=== PATIENT | female | born 1980 | race Caucasian/White ===

== ENCOUNTER 2016-06-16 21:56 | Emergency (ER) | payer OTHER ==
[~2016-06-16] VITALS: Ht 170.2 cm; Wt 170.9 kg
[~2016-06-16 21:56] MED LIST: CIPR500T4 PO; CLIN-73 PO; HYDR-902 PO; HYDR-906 PO; IBUP-1542 PO; ONDA4TAB8 PO
[2016-06-16 22:01] VITALS: Ht 170.2 cm; Wt 170.9 kg
[2016-06-16] MEDS ORDERED: morphine 4 MG/ML VIAL IV STA (22:40)
[2016-06-16] MEDS ORDERED: ONDANSETRON 4 MG INJ IV STA (22:40)
--- NOTE | 2016-06-16 22:53 | ERD ---
ER Documentation Chief Complaint Date/Time DATE: 06/16/16 TIME: 22:48 Chief Complaint FLANK PAIN,BURNING WHEN URINATING, N/V, ABD PAIN X 3 DAYS HPI This patient is a 36-year-old female with history of type 2 diabetes, hypertension, high cholesterol, fibromyalgia, arthritis, presenting to the emergency department for 4 days of burning while urinating. Additionally she reports fevers up to 101.5F at home and left and right-sided flank pain, worse on the left. She rates the pain at a 9 out of 10 currently. She also reports 4 episodes of vomiting today with no blood. She has had no diarrhea or changes in stools. She denies any chest pain, shortness of breath, or other symptoms at this time. There are no other alleviating or exacerbating factors at this time. ROS All systems reviewed and are negative except as per history of present illness. Medications Home Meds Active Scripts Ciprofloxacin (Ciprofloxacin) 500 Mg/5 Ml [facility].rec, 500 MG PO BID, #14 TAB Prov:KAYLEIGH ROY PA-C 06/17/16 Hydrocodone/Acetaminophen ([place] 5-325 Tablet) 1 Each Tablet, 1 TAB PO Q6H Y for PAIN, #6 TAB Prov:KAYLEIGH ROY PA-C 06/17/16 Ondansetron (Ondansetron Odt) 4 Mg Tab.rapdis, 4 MG PO Q6H Y for NAUSEA AND/OR VOMITING, #10 TAB Prov:KAYLEIGH ROY PA-C 06/17/16 Hydrocodone/Acetaminophen ([place] 10-325 Tablet) 1 Each Tablet, 1 TAB PO Q6H Y for PAIN, #10 TAB Prov:GRAZYNA COREAS PA-C 05/18/16 Clindamycin Hcl* (Clindamycin Hcl*) 300 Mg Capsule, 300 MG PO TID for 10 Days, CAP Prov:GRAZYNA COREAS PA-C 05/18/16 Ondansetron Hcl* (Zofran*) 4 Mg Tablet, 4 MG PO Q6H for NAUSEA AND/OR VOMITING, #10 TAB Prov:BEV OWENS NP 05/06/16 Ibuprofen* (Ibuprofen*) 600 Mg Tablet, 600 MG PO Q6, #15 TAB Prov:BEV OWENS NP 05/06/16 Hydrocodone/Acetaminophen ([place] 5-325 Tablet) 1 Each Tablet, 1 TAB PO Q6H Y for PAIN, #7 TAB Prov:BEV OWENS GAS PROVER 05/06/16 Ciprofloxacin Hcl* (Ciprofloxacin Hcl*) 500 Mg Tablet, 500 MG PO BID for 7 Days , TAB Prov:BEV OWENS NP 05/06/16 Allergies Allergies: Coded Allergies: Sulfa (Sulfonamide Antibiotics) (Unverified Allergy, Unknown, HIVES,, 06/16) PMhx/Soc History of Surgery: Yes (Cholecystectomy, appendectomy, oophorectomy) Anesthesia Reaction: No Hx Neurological Disorder: No Hx Respiratory Disorders: No Hx Cardiac Disorders: No Hx Psychiatric Problems: No Hx Miscellaneous Medical Probl: No Hx Alcohol Use: No Hx Substance Use: No Hx Tobacco Use: No FmHx Noncontributory for chief complaint Physical Exam Vitals Vital Signs Date Time Temp Pulse Resp B/P Pulse Ox O2 Delivery O2 Flow Rate FiO2 06/16/16 22:01 99.3 93 22 138/67 96 Physical Exam INITIAL VITAL SIGNS: Reviewed by me. Obese body habitus GENERAL: The patient is well developed and appropriate for usual state of health in no apparent distress HEENT: Pupils equal, round, and reactive to light. EOMI. There is no scleral icterus. NECK: C-spine is soft and supple, there is no meningismus. There is no cervical lymphadenopathy. LUNGS: Clear to auscultation bilaterally. There are no rales, wheezes or rhonchi. HEART: Regular rate and rhythm, no murmurs, clicks, rubs or gallops. ABDOMEN: Morbidly obese abdomen, soft, nondistended, there is tenderness to palpation of the left upper and left lower quadrant. BACK: There is left-sided CVA tenderness. EXTREMITIES: There is no peripheral cyanosis or edema. No focal swelling or erythema. NEUROLOGICAL: The patient moves all four extremities with 5/5 strength. Cranial nerves II - XII are intact. Normal gait. Alert and oriented SKIN: There is no apparent rash or petechiae. HEME/LYMPHATIC: There is no evidence of excessive bruising or lymphedema. PSYCHIATRIC: The patient does not appear anxious or depressed. Result Diagram: 06/16/16 2727 06/16/16 2322 Results 24 hrs Laboratory Tests Test 06/16/16 23:07 06/16/16 23:22 Urine Bacteria MODERATE Urine Bilirubin NEGATIVE Urine Clarity SLIGHTLY CLOUDY Urine Color DK. BROWN Urine Glucose >=1000% Urine Hemoglobin 1+ Urine Ketones TRACE Urine Leukocyte Esterase TRACE Urine Microscopic RBC 2-5/HPF Urine Microscopic WBC 10-25/HPF Urine Nitrite NEGATIVE Urine Specific [place] >=1.030 Urine Squamous Epithelial Cells MODERATE Urine Total Protein 2+ Urine Urobilinogen 0.2 E.U./dL Urine Yeast FEW Urine pH 6.0 Alanine Aminotransferase (ALT/SGPT) 42IU/L Albumin 4.3g/dl Albumin/Globulin Ratio 1.16 Alkaline Phosphatase 137IU/L Anion Gap 17 Aspartate Amino Transf (AST/SGOT) 34IU/L Basophils # 0.010^3/ul Basophils % 0.4% Blood Urea Nitrogen 8mg/dl Calcium Level 9.5mg/dl Carbon Dioxide Level 31mmol/L Chloride Level 93mmol/L Creatinine 0.58mg/dl Direct Bilirubin 0.00mg/dl Eosinophils # 0.510^3/ul Eosinophils % 5.8% Globulin 3.70g/dl Glucose Level 284mg/dl Hematocrit 41.1% Hemoglobin 14.4g/dl Indirect Bilirubin 0.3mg/dl Lipase 547U/L Lymphocytes # 2.510^3/ul Lymphocytes % 27.6% Mean Corpuscular Hemoglobin 29.5pg Mean Corpuscular Hemoglobin Concent 35.0g/dl Mean Corpuscular Volume 84.1fl Mean Platelet Volume 9.5fl Monocytes # 0.310^3/ul Monocytes % 3.5% Neutrophils # 5.810^3/ul Neutrophils % 62.7% Nucleated Red Blood Cells # 0.010^3/ul Nucleated Red Blood Cells % 0.0/100WBC Platelet Count 94621^3/UL Potassium Level 3.3mmol/L Red Blood Count 4.8810^6/ul Red Cell Distribution Width 13.6% Sodium Level 138mmol/L Total Bilirubin 0.3mg/dl Total Protein 8.0g/dl White Blood Count 9.210^3/ul Current Medications Medications (Trade) Dose Ordered Sig/Jovon Route PRN Reason Start Time Stop Time Status Last Admin Dose Admin Morphine Sulfate (morphine) 4 mg ONCE STAT IV 06/16/16 22:40 06/16/16 22:43 DC 06/16/16 23:26 Ondansetron HCl (Zofran Inj) 4 mg ONCE STAT IV 06/16/16 22:40 06/16/16 22:43 DC 06/16/16 23:26 Morphine Sulfate 4 mg 4 mg ONCE STAT IV 06/17/16 00:12 06/17/16 00:13 DC 06/17/16 00:19 Ceftriaxone Sodium (Rocephin) 50 ml @ 100 mls/hr ONCE ONCE IVPB 06/17/16 01:00 06/17/16 01:29 06/17/16 00:56 Procedures/MDM ED course: Labs: Lab results reviewed. Lipase is elevated at 547. Urinalysis shows trace leukocytes and 2+ protein. All other labs show no significant acute abnormalities Medications: The patient was given IV Zofran and IV morphine for acute pain and nausea relief. Reevaluation: On reevaluation the patient was feeling improved. MDM: 36-year-old female presents to the emergency department with left-sided CVA tenderness, dysuria, and left upper and left lower quadrant abdominal pain. On physical examination the patient is acutely tender to the left upper quadrant on palpation. The patient does have left-sided CVA tenderness. Labs show lipase is elevated at 547 and urinalysis shows signs of urinary tract infection with trace leukocytes and 2+ protein. All other labs show no significant acute abnormalities. At this time given the patient's age and clinical findings I believe she is suitable for outpatient treatment with return to the department in 24 hours for re-evaluation. The patient is post cholecystectomy and appendectomy and although there are clinical signs of slight pancreatitis I do not believe that imaging is required at this time. I discussed this case with supervising physician Dr. Darden who agreed with my examination, assessment, and plan for the patient and states the patient is suitable for 24 hour follow-up to the emergency department. The patient understands her diagnosis and plan and her questions and concerns of been addressed. The patient will be treated as an outpatient for her urinary tract infection and she has been given antibiotics and antinausea medication. Departure Diagnosis: Primary Impression: Abdominal pain Additional Impression: Urinary tract infection Condition: Stable Patient Instructions: Abdominal Pain, Urinary Tract Infections in Women Additional Instructions: Return to the Emergency Department in 24 hours for re-evaluation of abdominal pain. Follow-up with your primary care physician within 1 week. Return to the emergency department immediately should you have any new or worsening symptoms, uncontrolled fevers, or other unexplained symptoms. Take all medications as directed. KAYLEIGH ROY PA-C Jun 16, 2016 22:52
[2016-06-16 23:21] LABS: ADD UMIC YES; URINE BILIRUBIN (Dip) NEGATIVE (NEGATIVE); URINE BLOOD (Dip) 1+ (NEGATIVE); URINE COLOR DK. BROWN (YELLOW); URINE GLUCOSE (Dip) >=1000 % (NEGATIVE); URINE KETONES (Dip) TRACE (NEGATIVE); URINE LEUKOCYTE ESTERASE (Dip) TRACE (NEGATIVE); URINE NITRITE (Dip) NEGATIVE (NEGATIVE); URINE TOTAL PROTEIN (Dip) 2+ (NEGATIVE); URINE UROBILINOGEN (Dip) 0.2 E.U./dL (0.1-1.0)
[2016-06-17 00:01] LABS: BACTERIA,URINE MODERATE; SQUAMOUS EPITHELIAL CELL,UR MODERATE
[2016-06-17 00:03] LABS: BASOPHILS % 0.4 % (0.0-2.0); EOSINOPHILS # 0.5 10^3/ul (0.0-0.5); EOSINOPHILS % 5.8 % (0.0-7.0); HEMATOCRIT 41.1 % (37.0-47.0); HEMOGLOBIN 14.4 g/dl (12.0-16.0); LYMPHOCYTES # 2.5 10^3/ul (0.8-2.9); LYMPHOCYTES % 27.6 % (15.0-51.0); MEAN CORPUSCULAR HEMOGLOBIN 29.5 pg (29.0-33.0); MEAN CORPUSCULAR VOLUME 84.1 fl (82.0-101.0); MEAN PLATELET VOLUME 9.5 fl (7.4-10.4); MONOCYTE # 0.3 10^3/ul (0.3-0.9); MONOCYTES % 3.5 % (0.0-11.0); NEUTROPHIL # 5.8 10^3/ul (1.6-7.5); NEUTROPHILS % 62.7 % (39.0-77.0); PLATELET COUNT 186 10^3/UL (140-440); RED BLOOD COUNT 4.88 10^6/ul (4.20-5.40); RED CELL DISTRIBUTION WIDTH 13.6 % (11.5-14.5); UNCORRECTED WBC 9.2 10^3/ul (4.8-10.8); WHITE BLOOD COUNT 9.2 10^3/ul (4.8-10.8)
[2016-06-17 00:04] LABS: CONDITION 1
[2016-06-17 00:12] LABS: ALBUMIN 4.3 g/dl (3.3-4.9); POTASSIUM 3.3 mmol/L (3.5-5.1)
[2016-06-17] MEDS ORDERED: morphine 4 MG/ML VIAL IV STA (00:12)
[2016-06-17 00:14] LABS: CREATININE 0.58 mg/dl (0.44-1.00)
[2016-06-17 00:15] LABS: ALBUMIN/GLOBULIN RATIO 1.16; BILIRUBIN,INDIRECT 0.3 mg/dl (0-1.1); BILIRUBIN,TOTAL 0.3 mg/dl (0.2-1.3); CALCIUM 9.5 mg/dl (8.4-10.2)
[2016-06-17] MEDS ORDERED: ONDA4TAB14 PO (00:36)
[2016-06-17] MEDS ORDERED: CIPR500S2 PO (00:37)
[2016-06-17] MEDS ORDERED: HYDR-906 PO (00:37)
[2016-06-17] MEDS ORDERED: CEFTRIAXONE 1 GM/50 ML (PMX) 50 ML IVPB ONE (01:00)
[2016-06-17 01:52] VITALS: BP 120/76; PULSE 94; RESP 17; TEMP 97.3
== END 2016-06-17 01:52 | disposition home or self-care (01) ==
LOC: FTE 21:56
DX: R10.31 Right lower quadrant pain (principal); N39.0 Urinary tract infection, site not specified; I10 Essential (primary) hypertension; E11.9 Type 2 diabetes mellitus without complications; R11.2 Nausea with vomiting, unspecified; E66.9 Obesity, unspecified; Z68.43 Body mass index [BMI] 50.0-59.9, adult
CPT/HCPCS: 36415; 80053; 81001; 83690; 85025; 96374; 96375; 96376; J0696; J2270; J2405; Z7502; 81003

== ENCOUNTER 2016-06-30 17:34 | Emergency (ER) | payer OTHER ==
[~2016-06-30] VITALS: Wt 120.0 kg
[~2016-06-30 17:34] MED LIST changes: +CIPR500S2 PO; +ONDA4TAB14 PO
[2016-06-30] MEDS ORDERED: ONDANSETRON 4 MG INJ IV STA (18:35)
[2016-06-30] MEDS ORDERED: KETOROLAC 30 MG INJ IV STA (18:35)
[2016-06-30] MEDS ORDERED: SOD CHLORIDE 0.9% 1,000 ML IV STA (18:35)
[2016-06-30] MEDS ORDERED: morphine 4 MG/ML VIAL IV STA (18:35)
[2016-06-30 19:42] LABS: ADD UMIC YES; URINE BILIRUBIN (Dip) NEGATIVE (NEGATIVE); URINE BLOOD (Dip) TRACE (NEGATIVE); URINE KETONES (Dip) TRACE (NEGATIVE); URINE LEUKOCYTE ESTERASE (Dip) TRACE (NEGATIVE); URINE NITRITE (Dip) NEGATIVE (NEGATIVE); URINE TOTAL PROTEIN (Dip) NEGATIVE (NEGATIVE); URINE UROBILINOGEN (Dip) 0.2 E.U./dL (0.1-1.0)
[2016-06-30 19:51] LABS: URINE COLOR YELLOW (YELLOW)
[2016-06-30 20:02] LABS: BACTERIA,URINE MODERATE; MUCUS,URINE MODERATE; SQUAMOUS EPITHELIAL CELL,UR MANY; URINE RBCS 0-2 /HPF (0)
--- NOTE | 2016-06-30 20:16 | RADRPT ---
PROCEDURE: CT abdomen and pelvis without IV contrast. CLINICAL INDICATION: Abdomen pain. TECHNIQUE: CT scan of the abdomen and pelvis was performed on a [address] scanner. The patient is scanned without IV contrast. Coronal and sagittal reformatted images were obtained from the axia l source images. Images were reviewed on a high-resolution PACS workstation. Total radiation dose: Total CTDIvol: 23.7 mGy. Total DLP: 1452 mGy-cm. COMPARISON: CT abdomen pelvis, 05/06/2016. FINDINGS: CT abdomen: The lung bases are clear. The heart is not enlarged without pericardial thickening or effusion. There is mild fatty liver. The liver is normal in size without focal mass or intrahepatic biliary d ilatation. The spleen is normal in size and homogeneous in density. The stomach is partially colla psed but is grossly unremarkable. The pancreas as visualized is normal. There is status post cholecystectomy and there is no evidence of biliary dilatation. The adrenal glands are symmetrical and normal. There is 3 mm nonobstructing stone in the lower pole owen of the left kidney, unchanged. The kidneys are symmetrically normal bilaterally. No renal o bstructive uropathy or mass lesion is seen.. The aorta is normal in caliber. There is no retroperitoneal lymphadenopathy. The sherry hepatis reg ion is clear. The bowel and mesentery, as visualized, are equally unremarkable. CT pelvis: There is postop change at the anterior abdomen wall. The small bowel loops situated within the pelv is are unremarkable. The female pelvic organs are normal. The pelvic sidewalls and inguinal region s are clear. No mass, lymphadenopathy is seen. No acute inflammation seen. The urinary bladder is normal. The surrounding osseous structures are unremarkable. No osteolytic or osteoblastic lesion is detect ed. IMPRESSION: 1. State post cholecystectomy. 2. Mild fatty liver. 3. Postop change at the anterior abdomen wall of the pelvis, unchanged. 4. 0.3 cm nonobstructing stone in the lower pole owen of the left kidney unchanged. RPTAT: GG .Manpreet Monroy MD, Date Time Electronically viewed and signed by .Manprete Monroy MD, on 06/30/2016 20:16 .Y/
--- NOTE | 2016-06-30 20:22 | ERD ---
ER Documentation Chief Complaint Date/Time DATE: 06/30/16 Chief Complaint Flank pain HPI The patient is a 36-year-old female with past medical history of diabetes mellitus, hypertension, hyperlipidemia, arthritis, fibromyalgia who presents to the Emergency Department with complaint of flank pain. The patient reports that four days ago she developed gradual-onset of sharp, intermittent right- sided flank pain. Yesterday, she began to experience minimal, though similar pain to the left flank as well. Since waking up this morning, she notes that her right flank pain has been constant, and aching in nature, which she currently rates as 8/10. The patient reports associated nausea, with one episode of nonbilious, nonbloody emesis today, and a few episodes of nonbloody, nonmucoid diarrhea over the past 2 days. She denies any black or bloody stools. Denies fevers, chills, myalgias. Denies dysuria, urinary frequency, urinary urgency, urinary hesitancy, hematuria. The patient does note that in the past she has experience both kidney stones and pyelonephritis. She denies any vaginal bleeding or new vaginal discharge. ROS All systems reviewed and are negative except as per history of present illness. Medications Home Meds Active Scripts Ibuprofen* (Motrin*) 600 Mg Tab, 600 MG PO Q6, #30 TAB Prov:HECTOR BRITO PA-C 06/30/16 Amoxicillin/Potassium Clav (Amox-Clav 875-125 mg Tablet) 875-125 mg Tab, 1 TAB PO BID for 10 Days, #20 TAB Prov:HECTOR BRITO PA-C 06/30/16 Hydrocodone/Acetaminophen ([place] 5-325 Tablet) 1 Each Tablet, 1 EACH PO Q6, #12 TAB Prov:HECTOR BRITO PA-C 06/30/16 Ciprofloxacin (Ciprofloxacin) 500 Mg/5 Ml [facility]..rec, 500 MG PO BID, #14 TAB Prov:KAYLEIGH ROY PA-C 06/17/16 Hydrocodone/Acetaminophen ([place] 5-325 Tablet) 1 Each Tablet, 1 TAB PO Q6H Y for PAIN, #6 TAB Prov:KAYLEIGH ROY PA-C 06/17/16 Ondansetron (Ondansetron Odt) 4 Mg Tab.rapdis, 4 MG PO Q6H Y for NAUSEA AND/OR VOMITING, #10 TAB Prov:KAYLEIGH ROY PA-C 06/17/16 Hydrocodone/Acetaminophen ([place] 10-325 Tablet) 1 Each Tablet, 1 TAB PO Q6H Y for PAIN, #10 TAB Prov:GRAZYNA COREAS PA-C 05/18/16 Clindamycin Hcl* (Clindamycin Hcl*) 300 Mg Capsule, 300 MG PO TID for 10 Days, CAP Prov:GRAZYNA COREAS PA-C 05/18/16 Ondansetron Hcl* (Zofran*) 4 Mg Tablet, 4 MG PO Q6H for NAUSEA AND/OR VOMITING, #10 TAB Prov:BEV OWENS NP 05/06/16 Ibuprofen* (Ibuprofen*) 600 Mg Tablet, 600 MG PO Q6, #15 TAB Prov:BEV OWENS NP 05/06/16 Hydrocodone/Acetaminophen ([place] 5-325 Tablet) 1 Each Tablet, 1 TAB PO Q6H Y for PAIN, #7 TAB Prov:BEV OWENS NP 05/06/16 Ciprofloxacin Hcl* (Ciprofloxacin Hcl*) 500 Mg Tablet, 500 MG PO BID for 7 Days , TAB Prov:BEV OWENS NP 05/06/16 Allergies Allergies: Coded Allergies: Sulfa (Sulfonamide Antibiotics) (Unverified Allergy, Unknown, HIVES,, 06/16) PMhx/Soc History of Surgery: Yes (Cholecystectomy, appendectomy, oophorectomy, HERNIA REPAIR) Anesthesia Reaction: No Hx Neurological Disorder: No (RHEUMOTOID ARTHRITIS, THYROID) Hx Respiratory Disorders: No Hx Cardiac Disorders: No (HTN, DM) Hx Psychiatric Problems: No Hx Miscellaneous Medical Probl: No (KIDNEY STONE, OBESE, FIBROMYALGIA) Hx Alcohol Use: No Hx Substance Use: No Hx Tobacco Use: No Physical Exam Vitals Vital Signs Date Time Temp Pulse Resp B/P Pulse Ox O2 Delivery O2 Flow Rate FiO2 06/30/16 22:32 97.3 69 20 142/85 96 Room Air 06/30/16 20:54 84 20 134/78 95 Room Air 06/30/16 17:37 99.2 76 18 186/86 99 Physical Exam GENERAL: Well-developed, well-nourished, in no acute distress. Nontoxic. HEENT: Head is normocephalic, atraumatic. No scleral pallor or icterus. Pupils equal, round and reactive to light. Conjunctiva pink. Moist mucous membranes. NECK: Supple. RESPIRATORY: Lungs are clear to auscultation bilaterally. No rales, rhonchi or wheezing. Equal breath sounds. Normal expiratory effort. CARDIOVASCULAR: Regular rate and rhythm. S1 and S2 normal. No murmurs, rubs, or gallops. GASTROINTESTINAL: Abdomen is soft, nontender, and nondistended. No guarding, no rebound tenderness. Normal bowel sounds. No abdominal bruits. No gross peritonitis. No masses or organomegaly. Lower midline abdominal incisional scar. FLANK: Right-sided CVA tenderness. No left CVA tenderness. No mass or swelling. EXTREMITIES: No clubbing, cyanosis, or edema. Normal skin perfusion. Moving all extremities. NEUROLOGIC: The patient is alert, awake, and oriented x 3. No focal neurologic deficits. Speech is normal. INTEGUMENT: No rashes. No vesicles. PSYCHIATRIC: Appropriate; Cooperative. Result Diagram: 06/30/16202406/30/162024 Results 24 hrs Laboratory Tests Test 06/30/16 19:30 06/30/16 20:25 Urine Bacteria MODERATE Urine Bilirubin NEGATIVE Urine Clarity CLOUDY Urine Color YELLOW Urine Glucose 0.5%% Urine Hemoglobin TRACE Urine Ketones TRACE Urine Leukocyte Esterase TRACE Urine Microscopic RBC 0-2/HPF Urine Microscopic WBC 25-50/HPF Urine Mucus MODERATE Urine Nitrite NEGATIVE Urine Specific [place] 1.020 Urine Squamous Epithelial Cells MANY Urine Total Protein NEGATIVE Urine Urobilinogen 0.2 E.U./dL Urine Yeast MODERATE Urine pH 6.5 Activated Partial Thromboplast Time 32.5Sec Alanine Aminotransferase (ALT/SGPT) 39IU/L Albumin 3.9g/dl Albumin/Globulin Ratio 1.11 Alkaline Phosphatase 89IU/L Anion Gap 16 Aspartate Amino Transf (AST/SGOT) 32IU/L Basophils # 0.010^3/ul Basophils % 0.4% Blood Urea Nitrogen 9mg/dl Calcium Level 9.2mg/dl Carbon Dioxide Level 31mmol/L Chloride Level 98mmol/L Creatinine 0.51mg/dl Direct Bilirubin 0.00mg/dl Eosinophils # 0.410^3/ul Eosinophils % 4.2% Globulin 3.50g/dl Glucose Level 193mg/dl Hematocrit 40.6% Hemoglobin 14.3g/dl INR International Normalized Ratio 1.09 Indirect Bilirubin 0.2mg/dl Lipase 97U/L Lymphocytes # 2.510^3/ul Lymphocytes % 27.4% Mean Corpuscular Hemoglobin 29.1pg Mean Corpuscular Hemoglobin Concent 35.2g/dl Mean Corpuscular Volume 82.6fl Mean Platelet Volume 9.4fl Monocytes # 0.310^3/ul Monocytes % 3.4% Neutrophils # 6.010^3/ul Neutrophils % 64.6% Nucleated Red Blood Cells # 0.010^3/ul Nucleated Red Blood Cells % 0.0/100WBC Platelet Count 58894^3/UL Potassium Level 3.4mmol/L Prothrombin Time 14.1Sec Prothrombin Time Ratio 1.1 Red Blood Count 4.9210^6/ul Red Cell Distribution Width 13.3% Sodium Level 142mmol/L Total Bilirubin 0.2mg/dl Total Protein 7.4g/dl White Blood Count 9.310^3/ul Current Medications Medications (Trade) Dose Ordered Sig/Jovon Route PRN Reason Start Time Stop Time Status Last Admin Dose Admin Sodium Chloride (NS) 1,000 ml @ 1,000 mls/hr Q1H STAT IV 06/30/16 18:35 06/30/16 19:34 DC 06/30/16 20:27 Morphine Sulfate (morphine) 4 mg ONCE STAT IV 06/30/16 18:35 06/30/16 18:37 DC 06/30/16 20:31 Ondansetron HCl (Zofran Inj) 4 mg ONCE STAT IV 06/30/16 18:35 06/30/16 18:37 DC 06/30/16 20:31 Ketorolac Tromethamine 30 mg 30 mg ONCE STAT IV 06/30/16 18:35 06/30/16 18:37 DC 06/30/16 20:30 Ceftriaxone Sodium (Rocephin) 50 ml @ 100 mls/hr ONCE ONCE IVPB 06/30/16 20:30 06/30/16 20:59 DC 06/30/16 20:32 Hydromorphone HCl (Dilaudid) 1 mg ONCE STAT IV 06/30/16 21:20 06/30/16 21:21 DC 06/30/16 21:47 Procedures/MDM DIAGNOSTIC TESTS AND INTERPRETATION: PROCEDURE: CT abdomen and pelvis without IV contrast. CLINICAL INDICATION: Abdomen pain. TECHNIQUE: CT scan of the abdomen and pelvis was performed on a [address] scanner. The patient is scanned without IV contrast. Coronal and sagittal reformatted images were obtained from the axial source images. Images were reviewed on a high-resolution PACS workstation. Total radiation dose: Total CTDIvol: 23.7 mGy. Total DLP: 1452 mGy-cm. COMPARISON: CT abdomen pelvis, 05/06/2016. FINDINGS: CT abdomen: The lung bases are clear. The heart is not enlarged without pericardial thickening or effusion. There is mild fatty liver. The liver is normal in size without focal mass or intrahepatic biliary dilatation. The spleen is normal in size and homogeneous in density. The stomach is partially collapsed but is grossly unremarkable. The pancreas as visualized is normal. There is status post cholecystectomy and there is no evidence of biliary dilatation. The adrenal glands are symmetrical and normal. There is 3 mm nonobstructing stone in the lower pole owen of the left kidney, unchanged. The kidneys are symmetrically normal bilaterally. No renal obstructive uropathy or mass lesion is seen.. The aorta is normal in caliber. There is no retroperitoneal lymphadenopathy. The sherry hepatis region is clear. The bowel and mesentery, as visualized, are equally unremarkable. CT pelvis: There is postop change at the anterior abdomen wall. The small bowel loops situated within the pelvis are unremarkable. The female pelvic organs are normal. The pelvic sidewalls and inguinal regions are clear. No mass, lymphadenopathy is seen. No acute inflammation seen. The urinary bladder is normal. The surrounding osseous structures are unremarkable. No osteolytic or osteoblastic lesion is detected. IMPRESSION: 1. State post cholecystectomy. 2. Mild fatty liver. 3. Postop change at the anterior abdomen wall of the pelvis, unchanged. 4. 0.3 cm nonobstructing stone in the lower pole owen of the left kidney unchanged. .Manpreet Monroy MD, MD Date Time Electronically viewed and signed by .Manpreet Monroy MD, on 06/30/2016 20:16 The patient's case was reviewed and discussed with Dr. Maldonado, who agrees with the plan of care including labs, treatment and advanced imaging as appropriate. He recommends that the patient be discharged home with a oral antibiotics ( Augmentin) as treatment of her pyelonephritis, and that she follow up with her primary medical provider as an outpatient. EMERGENCY DEPARTMENT COURSE: The patient was stable throughout the ED course. IV access established by nursing staff. NaCl, Toradol Morphine, and Zofran were administered. CT imaging performed. On reevaluation, the patient was resting, and reports a decrease in symptoms to 5/10, though no complete resolution. Urinalysis with findings concerning for infection, and therefore Rocephin 1 gram IV administered to patient. Dilaudid 1 gram IV administered for additional pain control. On repeat examination, the patient was resting comfortably, with significantly decreased pain. Patient is stable for discharge home with outpatient therapy and follow up. All results discussed with patient. MEDICAL DECISION MAKING: This is a 36-year-old female presenting to the Emergency Department with flak pain. On physical examination, the patient had right-sided CVA tenderness. Otherwise, she was nontoxic in appearance, with no evidence of dehydration. She was afebrile, with no tachycardia, no tachypnea, no hypotension. The differential diagnosis includes, but is not limited to, urinary tract infection, renal abscess, perinephric abscess, urethritis, nephrolithiasis, salpingitis, cervicitis, pelvic inflammatory disease, diverticulitis, cystitis, cholecystitis, appendicitis, abdominal aortic aneurysm /dissection, pyelonephritis. Laboratory analysis revealed no leukocytosis. No severe anemia requiring transfusion. Electrolytes are within normal limits, no indication for medical replacement. BUN/creatinine and creatinine are normal, no prerenal azotemia or acute kidney injury. No transaminitis. Urinalysis revealed trace urine leukocyte esterase with 25-50 white blood cells, consistent with a urinary infection. Given that the patient presented with recent flank pain and CVA tenderness, patient's symptoms are most consistent with acute pyelonephritis. She was given an injection of 1 g of Rocephin IV. Urine culture sent. After rest, and administration of medications and serial evaluations, the patient reports no new complaints. She continues to remain stable and nontoxic, with no signs of distress. At this time, the patient is in stable condition, and therefore can be discharged home with a prescription for Augmentin, ibuprofen and [place] and strict return precautions for signs of deteriorating or worsening condition. The patient is advised to follow up with her primary care provider within 1-2 days for reevaluation and further management, or return to the ER sooner for any new or worsening symptoms. I shared all laboratory results, medical decision making and plan with the patient at length and in great detail, and the patient verbally understands and agrees with the plan for further observation and care as an outpatient. At the time of discharge, all questions were answered. Departure Diagnosis: Primary Impression: Acute pyelonephritis Additional Impression: Flank pain Condition: Stable Patient Instructions: Pyelonephritis Additional Instructions: Call your primary care doctor TOMORROW for an appointment during the next 1-2 days for reevaluation and further management.See the doctor sooner or return here if your condition worsens before your appointment time. HECTOR BRITO PA-C Jun 30, 2016 20:22
[2016-06-30] MEDS ORDERED: CEFTRIAXONE 1 GM/50 ML (PMX) 50 ML IVPB ONE (20:30)
[2016-06-30 20:35] LABS: BASOPHILS % 0.4 % (0.0-2.0); EOSINOPHILS # 0.4 10^3/ul (0.0-0.5); EOSINOPHILS % 4.2 % (0.0-7.0); HEMATOCRIT 40.6 % (37.0-47.0); HEMOGLOBIN 14.3 g/dl (12.0-16.0); LYMPHOCYTES # 2.5 10^3/ul (0.8-2.9); LYMPHOCYTES % 27.4 % (15.0-51.0); MEAN CORPUSCULAR HEMOGLOBIN 29.1 pg (29.0-33.0); MEAN CORPUSCULAR HGB CONC 35.2 g/dl (32.0-37.0); MEAN CORPUSCULAR VOLUME 82.6 fl (82.0-101.0); MEAN PLATELET VOLUME 9.4 fl (7.4-10.4); MONOCYTE # 0.3 10^3/ul (0.3-0.9); MONOCYTES % 3.4 % (0.0-11.0); NEUTROPHILS % 64.6 % (39.0-77.0); PLATELET COUNT 171 10^3/UL (140-440); RED BLOOD COUNT 4.92 10^6/ul (4.20-5.40); RED CELL DISTRIBUTION WIDTH 13.3 % (11.5-14.5); UNCORRECTED WBC 9.3 10^3/ul (4.8-10.8); WHITE BLOOD COUNT 9.3 10^3/ul (4.8-10.8)
[2016-06-30 20:38] LABS: CONDITION 1
[2016-06-30 20:41] LABS: ALBUMIN 3.9 g/dl (3.3-4.9); POTASSIUM 3.4 mmol/L (3.5-5.1)
[2016-06-30 20:43] LABS: BILIRUBIN,INDIRECT 0.2 mg/dl (0-1.1); BILIRUBIN,TOTAL 0.2 mg/dl (0.2-1.3); CREATININE 0.51 mg/dl (0.44-1.00); INR 1.09; PARTIAL THROMBOPLASTIN TIME 32.5 Sec (25.0-35.0); PROTIME 14.1 Sec (12.2-14.2); PT RATIO 1.1
[2016-06-30 20:44] LABS: ALBUMIN/GLOBULIN RATIO 1.11; CALCIUM 9.2 mg/dl (8.4-10.2); TOTAL PROTEIN 7.4 g/dl (6.1-8.1)
[2016-06-30] MEDS ORDERED: HYDR-906 PO (21:17)
[2016-06-30] MEDS ORDERED: AMOX1TAB10 PO (21:17)
[2016-06-30] MEDS ORDERED: IBUP-1542 PO (21:18)
[2016-06-30] MEDS ORDERED: HYDROmorphONE 1 MG/ML SYG IV STA (21:20)
[2016-06-30 22:32] VITALS: BP 142/85; PULSE 69; RESP 20; TEMP 97.3
== END 2016-06-30 22:35 | disposition home or self-care (01) ==
LOC: FTE 17:34
DX: N10 Acute pyelonephritis (principal); I10 Essential (primary) hypertension; E11.9 Type 2 diabetes mellitus without complications; R11.2 Nausea with vomiting, unspecified; E66.9 Obesity, unspecified
CPT/HCPCS: 36415; 74176; 80053; 81001; 83690; 85025; 85610; 85730; 87086; 96374; 96375; J0696; J1170; J1885; J2270; J2405; J7030; Z7502; 81003

== ENCOUNTER 2016-08-15 20:26 | Emergency (ER) | payer OTHER ==
[~2016-08-15] VITALS: Ht 172.7 cm; Wt 170.9 kg
[~2016-08-15 20:26] MED LIST changes: +AMOX1TAB10 PO
[2016-08-15 20:35] VITALS: Ht 172.7 cm; Wt 170.9 kg
[2016-08-16] MEDS ORDERED: morphine 4 MG/ML VIAL IV STA (00:05)
[2016-08-16] MEDS ORDERED: SOD CHLORIDE 0.9% 1,000 ML IV STA (00:05)
[2016-08-16] MEDS ORDERED: ONDANSETRON 4 MG INJ IV STA (00:05)
[2016-08-16] MEDS ORDERED: LANT3I SC (00:40)
[2016-08-16] MEDS ORDERED: CLON-379 PO (00:40)
[2016-08-16] MEDS ORDERED: MTF1000T PO (00:40)
--- NOTE | 2016-08-16 00:40 | ERD ---
ER Documentation Chief Complaint Date/Time DATE: 08/16/16 TIME: 00:38 Chief Complaint pelvic pain x 4 days HPI 36-year-old female presents here in emergency department for complaints of pelvic, back pain for 4 days. Patient's complaining of pain as cramping pain, 6/ 10 scale, back pain worse upon movement, also having dysuria. Patient denies hematuria. Patient denies any fever or chills. Patient denies constipation or diarrhea. Patient's complaining of nausea but denies any vomiting. ROS All systems reviewed and are negative except as per history of present illness. Medications Home Meds Active Scripts Ibuprofen* (Motrin*) 600 Mg Tab, 600 MG PO Q6, #30 TAB Prov:HECTOR BRITO PA-C 06/30/16 Amoxicillin/Potassium Clav (Amox-Clav 875-125 mg Tablet) 875-125 mg Tab, 1 TAB PO BID for 10 Days, #20 TAB Prov:HECTOR BRITO PA-C 06/30/16 Hydrocodone/Acetaminophen ([place] 5-325 Tablet) 1 Each Tablet, 1 EACH PO Q6, #12 TAB Prov:HECTOR BRITO PA-C 06/30/16 Ciprofloxacin (Ciprofloxacin) 500 Mg/5 Ml Binta.mc.rec, 500 MG PO BID, #14 TAB Prov:KAYLEIGH ROY PA-C 06/17/16 Hydrocodone/Acetaminophen ([place] 5-325 Tablet) 1 Each Tablet, 1 TAB PO Q6H Y for PAIN, #6 TAB Prov:KAYLEIGH ROY PA-C 06/17/16 Ondansetron (Ondansetron Odt) 4 Mg Tab.rapdis, 4 MG PO Q6H Y for NAUSEA AND/OR VOMITING, #10 TAB Prov:KAYLEIGH ROY PA-C 06/17/16 Hydrocodone/Acetaminophen ([place] 10-325 Tablet) 1 Each Tablet, 1 TAB PO Q6H Y for PAIN, #10 TAB Prov:GRAZYNA COREAS PA-C 05/18/16 Clindamycin Hcl* (Clindamycin Hcl*) 300 Mg Capsule, 300 MG PO TID for 10 Days, CAP Prov:GRAZYNA COREAS PA-C 05/18/16 Ondansetron Hcl* (Zofran*) 4 Mg Tablet, 4 MG PO Q6H for NAUSEA AND/OR VOMITING, #10 TAB Prov:BEV OWENS NP 05/06/16 Ibuprofen* (Ibuprofen*) 600 Mg Tablet, 600 MG PO Q6, #15 TAB Prov:BEV OWENS NP 05/06/16 Hydrocodone/Acetaminophen ([place] 5-325 Tablet) 1 Each Tablet, 1 TAB PO Q6H Y for PAIN, #7 TAB Prov:BEV OWENS YARD JOCKEY 05/06/16 Ciprofloxacin Hcl* (Ciprofloxacin Hcl*) 500 Mg Tablet, 500 MG PO BID for 7 Days , TAB Prov:BEV OWENS NP 05/06/16 Reported Medications Clonidine Hcl* (Clonidine Hcl*) Unknown Strength Tab, PO Q6, #10 TAB 08/16/16 Insulin Glargine* (Lantus*) Unknown Strength Soln, SC BID, #1 VIAL 08/16/16 Metformin* (Glucophage*) Unknown Strength Tablet, PO BID, #20 TAB 08/16/16 Allergies Allergies: Coded Allergies: Sulfa (Sulfonamide Antibiotics) (Unverified Allergy, Unknown, HIVES,, 06/16) PMhx/Soc History of Surgery: Yes (Cholecystectomy, appendectomy, oophorectomy, HERNIA REPAIR) Anesthesia Reaction: No Hx Neurological Disorder: No (RHEUMOTOID ARTHRITIS, THYROID) Hx Respiratory Disorders: No Hx Cardiac Disorders: No (HTN, DM) Hx Psychiatric Problems: No Hx Miscellaneous Medical Probl: Yes (diabetes hypertension fibromyalgia kidney stone) Hx Alcohol Use: No Hx Substance Use: No Hx Tobacco Use: No Smoking Status: Never smoker FmHx Family History: No coronary disease, No diabetes, No other Physical Exam Vitals Vital Signs Date Time Temp Pulse Resp B/P Pulse Ox O2 Delivery O2 Flow Rate FiO2 08/15/16 20:35 97.8 81 20 126/62 98 Physical Exam GENERAL: The patient is well developed and appropriate for usual state of health, in no apparent distress. Morbidly obese. CHEST: Clear to auscultation bilaterally. There are no rales, wheezes or rhonchi. HEART: Regular rate and rhythm. No murmurs, clicks, rubs or gallops. No S3 or S4. ABDOMEN: Soft, nontender and nondistended. Good bowel sounds. No rebound or guarding. No gross peritonitis. No gross organomegaly or masses. No Pham sign or McBurney point tenderness. BACK: No midline or flank tenderness. EXTREMITIES: Equal pulses bilaterally. There is no peripheral clubbing, cyanosis or edema. No focal swelling or erythema. Full range of motion. Grossly neurovascularly intact. NEURO: Alert and oriented. Cranial nerves 2-12 intact. Motor strength in all 4 extremities with 5/5 strength. Sensation grossly intact. Normal speech and gait. SKIN: There is no apparent rash or petechia. The skin is warm and dry. HEMATOLOGIC AND LYMPHATIC: There is no evidence of excessive bruising or lymphedema. No gross cervical, axillary, or inguinal lymphadenopathy. Result Diagram: 08/16/16 0045 08/16/16 0045 Results 24 hrs Laboratory Tests Test 08/16/16 00:45 Alanine Aminotransferase (ALT/SGPT) 33IU/L Albumin 4.0g/dl Albumin/Globulin Ratio 1.33 Alkaline Phosphatase 90IU/L Anion Gap 15 Aspartate Amino Transf (AST/SGOT) 33IU/L Basophils # 0.010^3/ul Basophils % 0.5% Blood Urea Nitrogen 9mg/dl Calcium Level 8.8mg/dl Carbon Dioxide Level 31mmol/L Chloride Level 97mmol/L Creatinine 0.54mg/dl Direct Bilirubin 0.00mg/dl Eosinophils # 0.310^3/ul Eosinophils % 4.0% Globulin 3.00g/dl Glucose Level 236mg/dl Hematocrit 38.5% Hemoglobin 13.6g/dl Indirect Bilirubin 0.2mg/dl Lipase 53U/L Lymphocytes # 2.310^3/ul Lymphocytes % 27.1% Mean Corpuscular Hemoglobin 28.8pg Mean Corpuscular Hemoglobin Concent 35.3g/dl Mean Corpuscular Volume 81.6fl Mean Platelet Volume 10.8fl Monocytes # 0.410^3/ul Monocytes % 4.2% Neutrophils # 5.310^3/ul Neutrophils % 63.8% Nucleated Red Blood Cells # 0.010^3/ul Nucleated Red Blood Cells % 0.0/100WBC Platelet Count 26901^3/UL Potassium Level 3.2mmol/L Red Blood Count 4.7210^6/ul Red Cell Distribution Width 12.7% Sodium Level 140mmol/L Total Bilirubin 0.2mg/dl Total Protein 7.0g/dl Urine Bilirubin NEGATIVE Urine Clarity CLEAR Urine Color YELLOW Urine Glucose 0.1%% Urine Hemoglobin 3+ Urine Ketones TRACE Urine Leukocyte Esterase 1+ Urine Microscopic RBC 10-25/HPF Urine Microscopic WBC 10-25/HPF Urine Mucus FEW Urine Nitrite NEGATIVE Urine Specific [place] 1.025 Urine Squamous Epithelial Cells MANY Urine Total Protein TRACE Urine Urobilinogen 0.2 E.U./dL Urine Yeast MODERATE Urine pH 6.0 White Blood Count 8.310^3/ul Current Medications Medications (Trade) Dose Ordered Sig/Jovon Route PRN Reason Start Time Stop Time Status Last Admin Dose Admin Sodium Chloride (NS) 1,000 ml @ 1,000 mls/hr Q1H STAT IV 08/16/16 00:05 08/16/16 01:04 DC 08/16/16 00:45 Morphine Sulfate (morphine) 4 mg ONCE STAT IV 08/16/16 00:05 08/16/16 00:09 DC 08/16/16 00:45 Ondansetron HCl 4 mg 4 mg ONCE STAT IV 08/16/16 00:05 08/16/16 00:09 DC 08/16/16 00:45 Ceftriaxone Sodium (Rocephin) 50 ml @ 100 mls/hr ONCE ONCE IVPB 08/16/16 02:00 08/16/16 02:29 Patient was given medication for pain here in emergency department, after treatment, patient verbalized feeling much better. Patient's pain is improved.Patient was given Zofran here in the emergency department. After treatment, patient was able to tolerate po fluids here in the emergency department without any vomiting. There is no signs and symptoms of dehydration. Normal saline IV bolus was given here in emergency department for rehydration, patient tolerated IV fluids. IV Rocephin was given here in emergency department for treatment for pyelonephritis. PROCEDURE: CT abdomen and pelvis without intravenous contrast. CLINICAL INDICATION: Pain. TECHNIQUE: CT of the abdomen/pelvis was performed utilizing axial images with reconstructions in sagittal and coronal planes. The administered radiation dose is CTDI 24 mGy, DLP 1518 mGy-cm. COMPARISON: No pertinent prior examinations were submitted for comparison. FINDINGS: Visualized Chest: The visualized lung bases are clear. Abdomen: The pancreas, and adrenal glands are unremarkable. The liver is diffusely decreased in attenuation, compatible with hepatic steatosis. There is moderate cardiomegaly. Prior cholecystectomy is noted. The kidneys are without hydronephrosis. There is a small nonobstructive calculus within the interpolar left kidney. Previous ventral abdominal incision is noted, likely hernia repair. Small to moderate residual or recurrent ventral abdominal hernia is noted within the lower anterior abdominal wall, containing fat and some trace fluid. There is no evidence of bowel obstruction. The appendix is not seen. There is no evidence of acute appendicitis. No intra-abdominal free air is seen. Numerous diverticula are noted along the sigmoid colon without evidence of diverticulitis. There is no evidence of intra-abdominal adenopathy or free fluid. Pelvis: There is no evidence of pelvic adenopathy. The uterus and ovaries are without enlargement. The urinary bladder is unremarkable. There is no pelvic free fluid. Osseous structures: Unremarkable. IMPRESSION: Hepatic steatosis. Colonic diverticulosis. Left nephrolithiasis. Status post ventral abdominal incision, likely a hernia repair with small to moderate residual or recurrent hernia containing fat and a small amount of nonspecific fluid. RPTAT: HIKT .Stanley Day MD, MD Date Time Electronically viewed and signed by .Stanley Day MD, MD on 08/16/2016 01:18 .T/ CC: INGA FERRO YARD JOCKEY Procedures/MDM Medical Decision Making: Patient's symptoms most likely consistent with pyelonephritis. Outpatient management is appropriate at this time since patient is not septic, appears well and is hemodynamically stable. Patient has nephrolithiasis but is no symptoms of any septic stone, no obstructed stone.. There is low suspicion for abdominal emergencies at this time. Patients abdominal exam is normal at this time. Patients radiology exam does not show any abdominal emergencies at this time. There is low suspicion for appendicitis , cholecystitis, abdominal aortic aneurysms or peritonitis at this time. There is low suspicion for sepsis. Patient appears well and is hemodynamically stable. Disposition: Home. Condition: Stable Prescription ciprofloxacin, Pyridium, [place], ibuprofen Instructions: Patient is advised to take medications as prescribed. Patient is advised to rest, increase fluid intake and do good perineal hygiene. Patient is advised that if symptoms are worse, severe abdominal pain, uncontrolled vomiting , high fever, severe flank pain, worst signs and symptoms, to return to the emergency department immediately. Otherwise, patient can follow up with primary care doctor in 5-7 days. Departure Diagnosis: Primary Impression: Pyelonephritis Condition: Stable Patient Instructions: Pyelonephritis, Female (Adult) Additional Instructions: Patient is advised to take medications as prescribed. Patient is advised to rest, increase fluid intake and do good perineal hygiene. Patient is advised that if symptoms are worse, severe abdominal pain, uncontrolled vomiting, high fever, severe flank pain, worst signs and symptoms, to return to the emergency department immediately. Otherwise, patient can follow up with primary care doctor in 5-7 days. INGA FERRO NP Aug 16, 2016 00:40
[2016-08-16 01:00] LABS: ADD SCAN DIFF NO
[2016-08-16 01:09] LABS: BASOPHILS % 0.5 % (0.0-2.0); EOSINOPHILS # 0.3 10^3/ul (0.0-0.5); HEMATOCRIT 38.5 % (37.0-47.0); HEMOGLOBIN 13.6 g/dl (12.0-16.0); LYMPHOCYTES # 2.3 10^3/ul (0.8-2.9); LYMPHOCYTES % 27.1 % (15.0-51.0); MEAN CORPUSCULAR HEMOGLOBIN 28.8 pg (29.0-33.0); MEAN CORPUSCULAR HGB CONC 35.3 g/dl (32.0-37.0); MEAN CORPUSCULAR VOLUME 81.6 fl (82.0-101.0); MEAN PLATELET VOLUME 10.8 fl (7.4-10.4); MONOCYTE # 0.4 10^3/ul (0.3-0.9); MONOCYTES % 4.2 % (0.0-11.0); NEUTROPHIL # 5.3 10^3/ul (1.6-7.5); NEUTROPHILS % 63.8 % (39.0-77.0); PLATELET COUNT 162 10^3/UL (140-415); RED BLOOD COUNT 4.72 10^6/ul (4.20-5.40); RED CELL DISTRIBUTION WIDTH 12.7 % (11.5-14.5); WHITE BLOOD COUNT 8.3 10^3/ul (4.8-10.8)
[2016-08-16 01:12] LABS: ADD UMIC YES; URINE BILIRUBIN (Dip) NEGATIVE (NEGATIVE); URINE BLOOD (Dip) 3+ (NEGATIVE); URINE COLOR YELLOW (YELLOW); URINE KETONES (Dip) TRACE (NEGATIVE); URINE LEUKOCYTE ESTERASE (Dip) 1+ (NEGATIVE); URINE NITRITE (Dip) NEGATIVE (NEGATIVE); URINE TOTAL PROTEIN (Dip) TRACE (NEGATIVE); URINE UROBILINOGEN (Dip) 0.2 E.U./dL (0.1-1.0)
[2016-08-16 01:15] LABS: POTASSIUM 3.2 mmol/L (3.5-5.1)
[2016-08-16 01:17] LABS: BILIRUBIN,INDIRECT 0.2 mg/dl (0-1.1); BILIRUBIN,TOTAL 0.2 mg/dl (0.2-1.3); CREATININE 0.54 mg/dl (0.44-1.00)
[2016-08-16 01:18] LABS: ALBUMIN/GLOBULIN RATIO 1.33; CALCIUM 8.8 mg/dl (8.4-10.2)
--- NOTE | 2016-08-16 01:18 | RADRPT ---
PROCEDURE: CT abdomen and pelvis without intravenous contrast. CLINICAL INDICATION: Pain. TECHNIQUE: CT of the abdomen/pelvis was performed utilizing axial images with reconstructions in s agittal and coronal planes. The administered radiation dose is CTDI 24 mGy, DLP 1518 mGy-cm. COMPARISON: No pertinent prior examinations were submitted for comparison. FINDINGS: Visualized Chest: The visualized lung bases are clear. Abdomen: The pancreas, and adrenal glands are unremarkable. The liver is diffusely decreased in attenuation , compatible with hepatic steatosis. There is moderate cardiomegaly. Prior cholecystectomy is noted. The kidneys are without hydronephrosis. There is a small nonobstructive calculus within the interpo lar left kidney. Previous ventral abdominal incision is noted, likely hernia repair. Small to moderate residual or r ecurrent ventral abdominal hernia is noted within the lower anterior abdominal wall, containing fat and some trace fluid. There is no evidence of bowel obstruction. The appendix is not seen. There is no evidence of acute appendicitis. No intra-abdominal free air is seen. Numerous diverticula ar e noted along the sigmoid colon without evidence of diverticulitis. There is no evidence of intra-abdominal adenopathy or free fluid. Pelvis: There is no evidence of pelvic adenopathy. The uterus and ovaries are without enlargement. The uri nary bladder is unremarkable. There is no pelvic free fluid. Osseous structures: Unremarkable. IMPRESSION: Hepatic steatosis. Colonic diverticulosis. Left nephrolithiasis. Status post ventral abdominal incision, likely a hernia repair with small to moderate residual or re current hernia containing fat and a small amount of nonspecific fluid. RPTAT: HIKT .Stanley Day MD, MD Date Time Electronically viewed and signed by .Stanley Day MD, on 08/16/2016 01:18 .T/
[2016-08-16 01:26] LABS: MUCUS,URINE FEW; SQUAMOUS EPITHELIAL CELL,UR MANY
[2016-08-16] MEDS ORDERED: CIPR500T4 PO (01:44)
[2016-08-16] MEDS ORDERED: KETOROLAC 30 MG INJ IV ONE (01:44)
[2016-08-16] MEDS ORDERED: PHEN-538 PO (01:44)
[2016-08-16] MEDS ORDERED: HYDR-906 PO (01:45)
[2016-08-16] MEDS ORDERED: CEFTRIAXONE 1 GM/50 ML (PMX) 50 ML IVPB ONE (02:00)
[2016-08-16 02:16] VITALS: BP 138/81; PULSE 81; RESP 20
== END 2016-08-16 02:20 | disposition home or self-care (01) ==
LOC: FTE 20:26
DX: N12 Tubulo-interstitial nephritis, not specified as acute or chronic (principal); I10 Essential (primary) hypertension; E11.9 Type 2 diabetes mellitus without complications; Z79.84 Long term (current) use of oral hypoglycemic drugs; Z79.4 Long term (current) use of insulin
CPT/HCPCS: 36415; 74176; 80053; 81001; 83690; 85025; 96374; 96375; J0696; J1885; J2270; J2405; J7030; Z7502; 81003

== ENCOUNTER 2016-09-04 20:49 | Emergency (ER) | payer OTHER ==
[~2016-09-04] VITALS: Ht 170.2 cm; Wt 170.9 kg
[~2016-09-04 20:49] MED LIST changes: +CLON-379 PO; +LANT3I SC; +MTF1000T PO; +PHEN-538 PO
[2016-09-04 21:18] VITALS: Ht 170.2 cm; Wt 170.9 kg
[2016-09-04] MEDS ORDERED: ONDANSETRON 4 MG INJ IV STA (22:22)
[2016-09-04] MEDS ORDERED: HYDROCODONE/APAP (5/325) TAB PO ONE (22:30)
[2016-09-04] MEDS ORDERED: SOD CHLORIDE 0.9% 250 ML IV ONE (22:30)
--- NOTE | 2016-09-04 22:34 | ERD ---
ER Documentation Chief Complaint Date/Time DATE: 09/04/16 TIME: 22:28 Chief Complaint FLANK PAIN X 2 DAYS HPI This pleasant obese 36-year-old female presenting to emergency department today for bilateral low back pain, dysuria, fever, chills, nausea and vomiting. Patient reports symptoms 3-4 days. She reports burning urgency and frequency of urination. Denies hematuria. Or low back injury. Patient is a diabetic, high risk for urinary tract infections, renal insufficiency, and DKA. Patient denies polyp diphtheria, polyphagia, or agitation. ROS All systems reviewed and are negative except as per history of present illness. Medications Home Meds Active Scripts Hydrocodone/Acetaminophen ([place] 5-325 Tablet) 1 Each Tablet, 1 TAB PO Q6H Y for PAIN, #20 TAB Prov:INGA FERRO NP 08/16/16 Phenazopyridine Hcl* (Pyridium*) 200 Mg Tab, 200 MG PO TID Y for URINARY PAIN, # 6 TAB Prov:INGA FERRO NP 08/16/16 Ciprofloxacin Hcl* (Ciprofloxacin Hcl*) 500 Mg Tablet, 500 MG PO BID for 10 Days , TAB Prov:INGA FERRO NP 08/16/16 Ibuprofen* (Motrin*) 600 Mg Tab, 600 MG PO Q6, #30 TAB Prov:HECTOR BRITO PA-C 06/30/16 Amoxicillin/Potassium Clav (Amox-Clav 875-125 mg Tablet) 875-125 mg Tab, 1 TAB PO BID for 10 Days, #20 TAB Prov:HECTOR BRITO PA-C 06/30/16 Hydrocodone/Acetaminophen ([place] 5-325 Tablet) 1 Each Tablet, 1 EACH PO Q6, #12 TAB Prov:HECTOR BRITO PA-C 06/30/16 Ciprofloxacin (Ciprofloxacin) 500 Mg/5 Ml Binta.mc.rec, 500 MG PO BID, #14 TAB Prov:KAYLEIGH ROY PA-C 06/17/16 Hydrocodone/Acetaminophen ([place] 5-325 Tablet) 1 Each Tablet, 1 TAB PO Q6H Y for PAIN, #6 TAB Prov:KAYLEIGH ROY PA-C 06/17/16 Ondansetron (Ondansetron Odt) 4 Mg Tab.rapdis, 4 MG PO Q6H Y for NAUSEA AND/OR VOMITING, #10 TAB Prov:KAYLEIGH ROY PA-C 06/17/16 Hydrocodone/Acetaminophen ([place] 10-325 Tablet) 1 Each Tablet, 1 TAB PO Q6H Y for PAIN, #10 TAB Prov:GRAZYNA COREAS PA-C 05/18/16 Clindamycin Hcl* (Clindamycin Hcl*) 300 Mg Capsule, 300 MG PO TID for 10 Days, CAP Prov:GRAZYNA COREAS PA-C 05/18/16 Ondansetron Hcl* (Zofran*) 4 Mg Tablet, 4 MG PO Q6H for NAUSEA AND/OR VOMITING, #10 TAB Prov:BEV OWENS NP 05/06/16 Ibuprofen* (Ibuprofen*) 600 Mg Tablet, 600 MG PO Q6, #15 TAB Prov:BEV OWENS NP 05/06/16 Hydrocodone/Acetaminophen ([place] 5-325 Tablet) 1 Each Tablet, 1 TAB PO Q6H Y for PAIN, #7 TAB Prov:BEV OWENS NP 05/06/16 Ciprofloxacin Hcl* (Ciprofloxacin Hcl*) 500 Mg Tablet, 500 MG PO BID for 7 Days , TAB Prov:BEV OWENS NP 05/06/16 Reported Medications Clonidine Hcl* (Clonidine Hcl*) Unknown Strength Tab, PO Q6, #10 TAB 08/16/16 Insulin Glargine* (Lantus*) Unknown Strength Soln, SC BID, #1 VIAL 08/16/16 Metformin* (Glucophage*) Unknown Strength Tablet, PO BID, #20 TAB 08/16/16 Allergies Allergies: Coded Allergies: Sulfa (Sulfonamide Antibiotics) (Unverified Allergy, Unknown, HIVES,, 06/16) PMhx/Soc History of Surgery: Yes (Cholecystectomy, appendectomy, oophorectomy, HERNIA REPAIR) Anesthesia Reaction: No Hx Neurological Disorder: No (RHEUMOTOID ARTHRITIS, THYROID) Hx Respiratory Disorders: No Hx Cardiac Disorders: No (HTN, DM) Hx Psychiatric Problems: No Hx Miscellaneous Medical Probl: Yes (diabetes hypertension fibromyalgia kidney stone) Hx Alcohol Use: No Hx Substance Use: No Hx Tobacco Use: No Physical Exam Vitals Vital Signs Date Time Temp Pulse Resp B/P Pulse Ox O2 Delivery O2 Flow Rate FiO2 09/04/16 21:18 99.8 95 20 178/80 97 Vitals stable, triage notes reviewed Physical Exam Const: No acute distress Head: Atraumatic Eyes: Normal Conjunctiva, PERRLA, EOMI ENT: Normal External Ears, Nose and Mouth. Mucous membranes moist Neck: Resp: Chest rise and fall symmetrically, clear to auscultation bilaterally, no rales wheezes or rhonchi Cardio: Regular rate and rhythm, S1-S2, no S3-S4 no murmurs Abd: Obese abdomen, nontender and upper quadrants, low pelvic tenderness, left CVA tenderness Skin: Back: Left CVA tenderness Ext: Neur: Awake and alert Psych: Normal Mood and Affect Result Diagram: 09/04/160 09/04/162239 Results 24 hrs Laboratory Tests Test 09/04/16 22:40 09/04/16 22:47 White Blood Count 8.810^3/ul Red Blood Count 4.6610^6/ul Hemoglobin 13.6g/dl Hematocrit 38.3% Mean Corpuscular Volume 82.2fl Mean Corpuscular Hemoglobin 29.2pg Mean Corpuscular Hemoglobin Concent 35.5g/dl Red Cell Distribution Width 13.0% Platelet Count 68990^3/UL Mean Platelet Volume 10.8fl Neutrophils % 64.5% Lymphocytes % 25.7% Monocytes % 4.0% Eosinophils % 4.7% Basophils % 0.6% Nucleated Red Blood Cells % 0.0/100WBC Neutrophils # 5.710^3/ul Lymphocytes # 2.310^3/ul Monocytes # 0.410^3/ul Eosinophils # 0.410^3/ul Basophils # 0.110^3/ul Nucleated Red Blood Cells # 0.010^3/ul Urine Color LT. YELLOW Urine Clarity SL HAZY Urine pH 6.0 Urine Specific [place] <=1.005 Urine Ketones TRACE Urine Nitrite NEGATIVE Urine Bilirubin NEGATIVE Urine Urobilinogen 0.2 E.U./dL Urine Leukocyte Esterase 3+ Urine Microscopic RBC 0-2/HPF Urine Microscopic WBC 25-50/HPF Urine Squamous Epithelial Cells FEW Urine Bacteria FEW Urine Yeast FEW Urine Hemoglobin TRACE Urine Glucose NEGATIVE% Urine Total Protein NEGATIVE Sodium Level 137mmol/L Potassium Level 3.6mmol/L Chloride Level 95mmol/L Carbon Dioxide Level 30mmol/L Anion Gap 16 Blood Urea Nitrogen 8mg/dl Creatinine 0.57mg/dl Glucose Level 237mg/dl Calcium Level 9.1mg/dl Total Bilirubin 0.4mg/dl Direct Bilirubin 0.00mg/dl Indirect Bilirubin 0.4mg/dl Aspartate Amino Transf (AST/SGOT) 38IU/L Alanine Aminotransferase (ALT/SGPT) 35IU/L Alkaline Phosphatase 91IU/L Total Protein 7.5g/dl Albumin 4.3g/dl Globulin 3.20g/dl Albumin/Globulin Ratio 1.34 Bedside Urine pH (LAB) 6.0 Bedside Urine Protein (LAB) Negative Bedside Urine Glucose (UA) 0.1% Bedside Urine Ketones (LAB) Negative Bedside Urine Blood Trace-lysed Bedside Urine Nitrite (LAB) Negative Bedside Urine Leukocyte Esterase (L 3+ Current Medications Medications (Trade) Dose Ordered Sig/Jovon Route PRN Reason Start Time Stop Time Status Last Admin Dose Admin Ondansetron HCl (Zofran Inj) 4 mg ONCE STAT IV 09/04/16 22:22 09/04/16 23:15 DC Acetaminophen/ Hydrocodone Bitart 1 tab 1 tab ONCE ONCE PO 09/04/16 22:30 09/04/16 22:31 DC 09/04/16 23:46 Sodium Chloride (NS) 250 ml @ 250 mls/hr Q1H ONCE IV 09/04/16 22:30 09/04/16 23:15 DC Ondansetron HCl (Zofran Odt) 4 mg ONCE STAT ODT 09/04/16 23:13 09/04/16 23:15 DC 09/04/16 23:46 Ceftriaxone Sodium (Rocephin) 1 gm ONCE ONCE IM 09/05/16 01:00 09/05/16 01:01 Interpretation text CBC shows no evidence of hemorrhage or infection Chemistry shows no evidence of significant electrolyte abnormalities or renal insufficiency, hyperglycosemia, Liver function tests shows no evidence of acute biliary or hepatic dysfunction Procedures/MDM This pleasant 36-year-old female presenting to emergency department today with 3 day history of dysuria, burning urgency and frequency of urination, fever chills and left low back pain. Urinary tract infection, pyelonephritis suspected. Patient is a diabetic high risk for renal disease, renal insufficiency suspected, CBC/CMP Departure Diagnosis: Primary Impression: Pyelonephritis, unspecified Condition: Good Patient Instructions: Pyelonephritis, Female (Adult) Additional Instructions: Thank you for for coming to [facility] for your care today. Please ask your nurse or provider if you have questions about your care today and do not leave until all your questions have been answered. Please use any medications given as directed and follow-up with your doctor (or the doctor you were referred to) in the next 2-3 days. If you do not have a primary care doctor you may follow up at the [facility] (listed below). You may also use motrin and tylenol as needed for fever and/or pain unless instructed otherwise by your provider or nurse. Indications for more urgent follow-up have been discussed, but you may return to the Emergency Department at ANY time for any worrisome or worsening symptoms. If you have abdominal pain, please know that no test or exam you received is perfect and you should follow up within 8 hours for continued pain. If you had any imaging studies today, such as an X-Ray or CT Scan, these studies will be reviewed later by a radiologist. You will be called if there are important findings that were not identified today, so make sure the contact information you provided at registration is correct. If you received any narcotic pain control medicine today, such as Vicodin, Morphine or Dilaudid, your coordination and judgment may be affected for a number of hours. Please do not drive or operate heavy machinery, and you may want someone to assist you at home. If you were given a prescription for narcotic medication, be aware that it is very addictive- use sparingly and only if necessary. JUANY CHOI Sep 04, 2016 22:34
[2016-09-04 22:47] LABS: URINE BLOOD (Dip) POC Trace-lysed (NEGATIVE)
[2016-09-04] MEDS ORDERED: ONDANSETRON (ODT) 4 MG TAB ODT STA (23:13)
[2016-09-04 23:17] LABS: ADD UMIC YES; URINE BILIRUBIN (Dip) NEGATIVE (NEGATIVE); URINE BLOOD (Dip) TRACE (NEGATIVE); URINE COLOR LT. YELLOW (YELLOW); URINE GLUCOSE (Dip) NEGATIVE (NEGATIVE); URINE KETONES (Dip) TRACE (NEGATIVE); URINE LEUKOCYTE ESTERASE (Dip) 3+ (NEGATIVE); URINE NITRITE (Dip) NEGATIVE (NEGATIVE); URINE TOTAL PROTEIN (Dip) NEGATIVE (NEGATIVE); URINE UROBILINOGEN (Dip) 0.2 E.U./dL (0.1-1.0)
[2016-09-04 23:32] LABS: ADD SCAN DIFF NO
[2016-09-04 23:34] LABS: BASOPHIL # 0.1 10^3/ul (0.0-0.1); BASOPHILS % 0.6 % (0.0-2.0); EOSINOPHILS # 0.4 10^3/ul (0.0-0.5); EOSINOPHILS % 4.7 % (0.0-7.0); HEMATOCRIT 38.3 % (37.0-47.0); HEMOGLOBIN 13.6 g/dl (12.0-16.0); LYMPHOCYTES # 2.3 10^3/ul (0.8-2.9); LYMPHOCYTES % 25.7 % (15.0-51.0); MEAN CORPUSCULAR HEMOGLOBIN 29.2 pg (29.0-33.0); MEAN CORPUSCULAR HGB CONC 35.5 g/dl (32.0-37.0); MEAN CORPUSCULAR VOLUME 82.2 fl (82.0-101.0); MEAN PLATELET VOLUME 10.8 fl (7.4-10.4); MONOCYTE # 0.4 10^3/ul (0.3-0.9); NEUTROPHIL # 5.7 10^3/ul (1.6-7.5); NEUTROPHILS % 64.5 % (39.0-77.0); PLATELET COUNT 202 10^3/UL (140-415); RED BLOOD COUNT 4.66 10^6/ul (4.20-5.40); WHITE BLOOD COUNT 8.8 10^3/ul (4.8-10.8)
[2016-09-04 23:44] LABS: ALBUMIN 4.3 g/dl (3.3-4.9)
[2016-09-04 23:45] LABS: POTASSIUM 3.6 mmol/L (3.5-5.1)
[2016-09-04 23:47] LABS: ALBUMIN/GLOBULIN RATIO 1.34; BILIRUBIN,INDIRECT 0.4 mg/dl (0-1.1); BILIRUBIN,TOTAL 0.4 mg/dl (0.2-1.3); CREATININE 0.57 mg/dl (0.44-1.00); TOTAL PROTEIN 7.5 g/dl (6.1-8.1)
[2016-09-04 23:48] LABS: CALCIUM 9.1 mg/dl (8.4-10.2)
[2016-09-05 00:02] LABS: BACTERIA,URINE FEW; SQUAMOUS EPITHELIAL CELL,UR FEW; URINE RBCS 0-2 /HPF (0)
[2016-09-05] MEDS ORDERED: CEPH-443 PO (00:52)
[2016-09-05] MEDS ORDERED: ACET325T33 PO (00:52)
[2016-09-05] MEDS ORDERED: CEFTRIAXONE 1 GM INJ IM ONE (01:00)
[2016-09-05 01:08] VITALS: BP 133/65; PULSE 96; RESP 16
== END 2016-09-05 01:09 | disposition home or self-care (01) ==
LOC: FTE 20:49
DX: N12 Tubulo-interstitial nephritis, not specified as acute or chronic (principal); I10 Essential (primary) hypertension; E11.9 Type 2 diabetes mellitus without complications; R11.2 Nausea with vomiting, unspecified; R10.2 Pelvic and perineal pain; Z79.4 Long term (current) use of insulin; Z79.84 Long term (current) use of oral hypoglycemic drugs
CPT/HCPCS: 80053; 81001; 81003; 85025; 87086; 96372; J0696; Z7502; Z7610; J7040

== ENCOUNTER 2016-09-06 21:37 | Emergency (ER) | payer OTHER ==
[~2016-09-06] VITALS: Ht 170.2 cm; Wt 170.5 kg
[~2016-09-06 21:37] MED LIST changes: +ACET325T33 PO; +CEPH-443 PO
[2016-09-06 22:44] VITALS: Ht 170.2 cm; Wt 170.5 kg
[2016-09-06] MEDS ORDERED: ONDANSETRON 4 MG INJ IV STA (23:43)
[2016-09-06] MEDS ORDERED: SOD CHLORIDE 0.9% 500 ML IV STA (23:43)
[2016-09-06] MEDS ORDERED: morphine 4 MG/ML VIAL IV STA (23:43)
--- NOTE | 2016-09-07 00:51 | RADRPT ---
PROCEDURE: US left lower extremity venous Doppler CLINICAL INDICATION: Swelling TECHNIQUE: Multiple sonographic images of the left lower extremity deep venous system was obtained utilizing grayscale, color-flow, compressive sonography and Doppler imaging with augmentation. COMPARISON: No pertinent prior examinations were submitted for comparison. FINDINGS: There is normal compressibility and flow within the left common femoral, proximal to mid superficial femoral, and popliteal veins. The examination is limited by body habitus. The distal superficial fe moral vein and calf veins are not visualized. IMPRESSION: No sonographic evidence for left deep venous thrombosis. RPTAT: HIKT .Stanley Day MD, MD Date Time Electronically viewed and signed by .Stanley Day MD, on 09/07/2016 00:51 .T/
[2016-09-07 00:59] LABS: ADD SCAN DIFF NO
[2016-09-07 01:00] LABS: BASOPHIL # 0.1 10^3/ul (0.0-0.1); BASOPHILS % 0.7 % (0.0-2.0); EOSINOPHILS # 0.4 10^3/ul (0.0-0.5); HEMATOCRIT 40.9 % (37.0-47.0); HEMOGLOBIN 14.1 g/dl (12.0-16.0); LYMPHOCYTES # 2.3 10^3/ul (0.8-2.9); LYMPHOCYTES % 28.6 % (15.0-51.0); MEAN CORPUSCULAR HEMOGLOBIN 28.8 pg (29.0-33.0); MEAN CORPUSCULAR HGB CONC 34.5 g/dl (32.0-37.0); MEAN CORPUSCULAR VOLUME 83.6 fl (82.0-101.0); MEAN PLATELET VOLUME 11.2 fl (7.4-10.4); MONOCYTE # 0.3 10^3/ul (0.3-0.9); MONOCYTES % 3.4 % (0.0-11.0); NEUTROPHILS % 61.9 % (39.0-77.0); PLATELET COUNT 196 10^3/UL (140-415); RED BLOOD COUNT 4.89 10^6/ul (4.20-5.40); RED CELL DISTRIBUTION WIDTH 13.2 % (11.5-14.5)
[2016-09-07 01:16] LABS: ALBUMIN 4.3 g/dl (3.3-4.9)
[2016-09-07 01:17] LABS: POTASSIUM 3.3 mmol/L (3.5-5.1)
[2016-09-07 01:19] LABS: ADD UMIC YES; URINE BILIRUBIN (Dip) NEGATIVE (NEGATIVE); URINE BLOOD (Dip) NEGATIVE (NEGATIVE); URINE COLOR LT. YELLOW (YELLOW); URINE KETONES (Dip) NEGATIVE (NEGATIVE); URINE LEUKOCYTE ESTERASE (Dip) 1+ (NEGATIVE); URINE NITRITE (Dip) NEGATIVE (NEGATIVE); URINE TOTAL PROTEIN (Dip) NEGATIVE (NEGATIVE); URINE UROBILINOGEN (Dip) 0.2 E.U./dL (0.1-1.0)
[2016-09-07 01:19] LABS: ALBUMIN/GLOBULIN RATIO 1.3; BILIRUBIN,INDIRECT 0.3 mg/dl (0-1.1); BILIRUBIN,TOTAL 0.3 mg/dl (0.2-1.3); CREATININE 0.57 mg/dl (0.44-1.00); TOTAL PROTEIN 7.6 g/dl (6.1-8.1)
[2016-09-07 01:20] LABS: CALCIUM 8.9 mg/dl (8.4-10.2)
[2016-09-07] MEDS ORDERED: morphine 4 MG/ML VIAL IV STA (01:31)
[2016-09-07 01:32] LABS: SQUAMOUS EPITHELIAL CELL,UR FEW; URINE RBCS 0-2 /HPF (0)
[2016-09-07 01:33] LABS: BACTERIA,URINE RARE
[2016-09-07] MEDS ORDERED: DOXY100T20 PO (01:50)
[2016-09-07] MEDS ORDERED: CEFTRIAXONE 1 GM/50 ML (PMX) 50 ML IVPB ONE (02:00)
--- NOTE | 2016-09-07 02:03 | ERD ---
ER Documentation Chief Complaint Date/Time DATE: 09/07/16 TIME: 01:58 Chief Complaint Bilateral flank pain x1 week. pain is worst HPI This patient is a 36-year-old female with history of type 2 diabetes, hypertension, kidney stones, presenting to the emergency department for left- sided flank pain ongoing for the past 2 days. The patient has had recent CT scans of the abdomen which showed kidney stones. Patient was seen here 2 days ago for urinary tract infection with possible pyelonephritis and was sent home with a prescription for Keflex. Additionally the patient has had burning on urination, nausea, 3 episodes of vomiting today, and left lower extremity swelling and erythema. The patient states she spends most of her time in a wheelchair secondary to obesity. The patient rates her left leg pain a 10 out of 10 on the pain scale and states it is nonradiating. The patient has taken [place] at home for pain relief. The patient denies fevers, chills, or other symptoms at this time. ROS All systems reviewed and are negative except as per history of present illness. Medications Home Meds Active Scripts Doxycycline Hyclate* (Doxycycline Hyclate*) 100 Mg Tablet.dr, 100 MG PO BID for 10 Days, #20 TAB Prov:KAYLEIGH ROY PA-C 09/07/16 Acetaminophen* (Tylenol*) 325 Mg Tablet, 2 TAB PO Q8 Y for PAIN AND OR ELEVATED TEMP, #20 TAB Prov:JIMBO,JUANY 09/05/16 Cephalexin* (Keflex*) 500 Mg Capsule, 500 MG PO BID WITH MEALS for 10 Days, CAP Prov:JIMBO,JUANY 09/05/16 Hydrocodone/Acetaminophen ([place] 5-325 Tablet) 1 Each Tablet, 1 TAB PO Q6H Y for PAIN, #20 TAB Prov:INGA FERRO NP 08/16/16 Phenazopyridine Hcl* (Pyridium*) 200 Mg Tab, 200 MG PO TID Y for URINARY PAIN, # 6 TAB Prov:INGA FERRO [employer]ESS[employer] 08/16/16 Ciprofloxacin Hcl* (Ciprofloxacin Hcl*) 500 Mg Tablet, 500 MG PO BID for 10 Days , TAB Prov:INGA FERRO NP 08/16/16 Ibuprofen* (Motrin*) 600 Mg Tab, 600 MG PO Q6, #30 TAB Prov:HECTOR BRITO PA-C 06/30/16 Amoxicillin/Potassium Clav (Amox-Clav 875-125 mg Tablet) 875-125 mg Tab, 1 TAB PO BID for 10 Days, #20 TAB Prov:HECTOR BRITO PA-C 06/30/16 Hydrocodone/Acetaminophen ([place] 5-325 Tablet) 1 Each Tablet, 1 EACH PO Q6, #12 TAB Prov:HECTOR BRITO PA-C 06/30/16 Ciprofloxacin (Ciprofloxacin) 500 Mg/5 Ml Binta.mc.rec, 500 MG PO BID, #14 TAB Prov:KAYLEIGH ROY PA-C 06/17/16 Hydrocodone/Acetaminophen ([place] 5-325 Tablet) 1 Each Tablet, 1 TAB PO Q6H Y for PAIN, #6 TAB Prov:KAYLEIGH ROY PA-C 06/17/16 Ondansetron (Ondansetron Odt) 4 Mg Tab.rapdis, 4 MG PO Q6H Y for NAUSEA AND/OR VOMITING, #10 TAB Prov:KAYLEIGH ROY PA-C 06/17/16 Hydrocodone/Acetaminophen ([place] 10-325 Tablet) 1 Each Tablet, 1 TAB PO Q6H Y for PAIN, #10 TAB Prov:GRAZYNA COREAS PA-C 05/18/16 Clindamycin Hcl* (Clindamycin Hcl*) 300 Mg Capsule, 300 MG PO TID for 10 Days, CAP Prov:GRAZYNA COREAS PA-C 05/18/16 Ondansetron Hcl* (Zofran*) 4 Mg Tablet, 4 MG PO Q6H for NAUSEA AND/OR VOMITING, #10 TAB Prov:BEV OWENS NP 05/06/16 Ibuprofen* (Ibuprofen*) 600 Mg Tablet, 600 MG PO Q6, #15 TAB Prov:BEV OWENS NP 05/06/16 Hydrocodone/Acetaminophen ([place] 5-325 Tablet) 1 Each Tablet, 1 TAB PO Q6H Y for PAIN, #7 TAB Prov:BEV OWENS NP 05/06/16 Ciprofloxacin Hcl* (Ciprofloxacin Hcl*) 500 Mg Tablet, 500 MG PO BID for 7 Days , TAB Prov:BEV OWENS NP 05/06/16 Reported Medications Clonidine Hcl* (Clonidine Hcl*) Unknown Strength Tab, PO Q6, #10 TAB 08/16/16 Insulin Glargine* (Lantus*) Unknown Strength Soln, SC BID, #1 VIAL 08/16/16 Metformin* (Glucophage*) Unknown Strength Tablet, PO BID, #20 TAB 08/16/16 Allergies Allergies: Coded Allergies: Sulfa (Sulfonamide Antibiotics) (Unverified Allergy, Unknown, HIVES,, 06/16) PMhx/Soc History of Surgery: Yes (Cholecystectomy, appendectomy, oophorectomy, HERNIA REPAIR) Anesthesia Reaction: No Hx Neurological Disorder: No (RHEUMOTOID ARTHRITIS, THYROID) Hx Respiratory Disorders: No Hx Cardiac Disorders: No (HTN, DM) Hx Psychiatric Problems: No Hx Miscellaneous Medical Probl: Yes (diabetes hypertension fibromyalgia kidney stone) Hx Alcohol Use: No Hx Substance Use: No Hx Tobacco Use: No FmHx Noncontributory for chief complaint Physical Exam Vitals Vital Signs Date Time Temp Pulse Resp B/P Pulse Ox O2 Delivery O2 Flow Rate FiO2 09/07/16 01:39 98.8 97 17 179/79 100 Room Air 09/06/16 22:44 99.1 97 20 171/81 96 Physical Exam Const: Morbidly obese. The patient is in no acute distress. Head: Atraumatic Eyes: Normal Conjunctiva ENT: Normal External Ears, Nose and Mouth. Neck: Full range of motion..~ No meningismus. Resp: Clear to auscultation bilaterally Cardio: Regular rate and rhythm, no murmurs Abd: Obese, soft, non tender, non distended. Normal bowel sounds Skin: No petechiae or rashes Back: No midline or flank tenderness. There is tenderness to palpation of the left flank area. Ext: There is edema to the left lower extremity with some mild warmth and erythema. There is some tenderness to palpation of the left calf. Neur: Awake and alert Psych: Normal Mood and Affect Result Diagram: 09/07/163409/07/1634 Results 24 hrs Laboratory Tests Test 09/06/16 23:55 09/07/16 00:35 Urine Color LT. YELLOW Urine Clarity SLIGHTLY CLOUDY Urine pH 6.0 Urine Specific [place] 1.020 Urine Ketones NEGATIVE Urine Nitrite NEGATIVE Urine Bilirubin NEGATIVE Urine Urobilinogen 0.2 E.U./dL Urine Leukocyte Esterase 1+ Urine Microscopic RBC 0-2/HPF Urine Microscopic WBC 25-50/HPF Urine Squamous Epithelial Cells FEW Urine Bacteria RARE Urine Hemoglobin NEGATIVE Urine Glucose 0.5%% Urine Total Protein NEGATIVE White Blood Count 8.010^3/ul Red Blood Count 4.8910^6/ul Hemoglobin 14.1g/dl Hematocrit 40.9% Mean Corpuscular Volume 83.6fl Mean Corpuscular Hemoglobin 28.8pg Mean Corpuscular Hemoglobin Concent 34.5g/dl Red Cell Distribution Width 13.2% Platelet Count 21045^3/UL Mean Platelet Volume 11.2fl Neutrophils % 61.9% Lymphocytes % 28.6% Monocytes % 3.4% Eosinophils % 5.0% Basophils % 0.7% Nucleated Red Blood Cells % 0.0/100WBC Neutrophils # 5.010^3/ul Lymphocytes # 2.310^3/ul Monocytes # 0.310^3/ul Eosinophils # 0.410^3/ul Basophils # 0.110^3/ul Nucleated Red Blood Cells # 0.010^3/ul Sodium Level 136mmol/L Potassium Level 3.3mmol/L Chloride Level 96mmol/L Carbon Dioxide Level 29mmol/L Anion Gap 14 Blood Urea Nitrogen 9mg/dl Creatinine 0.57mg/dl Glucose Level 238mg/dl Calcium Level 8.9mg/dl Total Bilirubin 0.3mg/dl Direct Bilirubin 0.00mg/dl Indirect Bilirubin 0.3mg/dl Aspartate Amino Transf (AST/SGOT) 40IU/L Alanine Aminotransferase (ALT/SGPT) 39IU/L Alkaline Phosphatase 89IU/L Total Protein 7.6g/dl Albumin 4.3g/dl Globulin 3.30g/dl Albumin/Globulin Ratio 1.30 Lipase 52U/L Current Medications Medications (Trade) Dose Ordered Sig/Jovon Route PRN Reason Start Time Stop Time Status Last Admin Dose Admin Sodium Chloride (NS) 500 ml @ 500 mls/hr Q1H STAT IV 09/06/16 23:43 09/07/16 00:42 DC 09/07/16 00:39 Morphine Sulfate (morphine) 4 mg ONCE STAT IV 09/06/16 23:43 09/06/16 23:46 DC 09/07/16 00:38 Ondansetron HCl (Zofran Inj) 4 mg ONCE STAT IV 09/06/16 23:43 09/06/16 23:46 DC 09/07/16 00:38 Morphine Sulfate 4 mg 4 mg ONCE STAT IV 09/07/16 01:31 09/07/16 01:32 DC 09/07/16 01:41 Ceftriaxone Sodium (Rocephin) 50 ml @ 100 mls/hr ONCE ONCE IVPB 09/07/16 02:00 09/07/16 02:29 UNV Procedures/MDM EMERGENCY DEPARTMENT COURSE / MEDICAL DECISION MAKING: This is a 36-year-old female who comes to the emergency room secondary to complaints of left lower extremity pain, left-sided flank pain. The patient was given IV fluids, IV morphine, IV Zofran in the department. On re -evaluation, the patient was feeling improved. Radiology: PROCEDURE: US left lower extremity venous Doppler CLINICAL INDICATION: Swelling TECHNIQUE: Multiple sonographic images of the left lower extremity deep venous system was obtained utilizing grayscale, color-flow, compressive sonography and Doppler imaging with augmentation. COMPARISON: No pertinent prior examinations were submitted for comparison. FINDINGS: There is normal compressibility and flow within the left common femoral, proximal to mid superficial femoral, and popliteal veins. The examination is limited by body habitus. The distal superficial femoral vein and calf veins are not visualized. IMPRESSION: No sonographic evidence for left deep venous thrombosis. RPTAT: HIKT .Stanley Day MD, Date Time Electronically viewed and signed by .Stanley Day MD, on 09/07/2016 00:51 .T/ CC: KAYLEIGH ROY PA-C Lab results reviewed and showed no significant acute abnormality. Urinalysis was reviewed and showed 1+ leukocyte but no proteinuria. The primary diagnosis is urinary tract infection. The patient does commonly have swelling of her lower extremities and the increasing redness in the left lower extremity may be due to an early cellulitis. I treated the patient with doxycycline due to this and she was also given IM Rocephin in the department. The patient was explicitly advised to return to the department immediately with any new or worsening symptoms. She should return here for recheck of the lower extremity in 24 hours if any redness continues or if there is increasing redness, pain, or warmth. She demonstrates good understanding of this information. I discussed this case with my supervising physician Dr. Darden, who agreed with the ED course. I have low suspicion for pyelonephritis, obstructive calculi, septicemia, cellulitis, DVT, sepsis, or other emergent conditions at this time. Discharge: I have discussed the lab results and diagnostic findings with the patient and answered any questions or concerns. The patient was discharged with a prescription for doxycycline. The patient was advised to followup with their PMD in 1-2 days and to return to the Emergency Department if there are any new or worsening symptoms. The patient understood and agreed with the diagnosis, treatment and plan. The patient is stable for discharge at this time. Departure Diagnosis: Primary Impression: Urinary tract infection Urinary tract infection type: acute cystitis Hematuria presence: without hematuria Qualified Code: N30.00 - Acute cystitis without hematuria Additional Impression: Swelling of extremity Condition: Fair Patient Instructions: Understanding Urinary Tract Infections (UTIs) Referrals: [facility] YOU HAVE RECEIVED A MEDICAL SCREENING EXAM AND THE RESULTS INDICATE THAT YOU DO NOT HAVE A CONDITION THAT REQUIRES URGENT TREATMENT IN THE EMERGENCY DEPARTMENT. FURTHER EVALUATION AND TREATMENT OF YOUR CONDITION CAN WAIT UNTIL YOU ARE SEEN IN YOUR DOCTORS OFFICE WITHIN THE NEXT 1-2 DAYS. IT IS YOUR RESPONSIBILITY TO MAKE AN APPOINTMENT FOR FOLOW-UP CARE. IF YOU HAVE A PRIMARY DOCTOR --you should call your primary doctor and schedule an appointment IF YOU DO NOT HAVE A PRIMARY DOCTOR YOU CAN CALL OUR PHYSICIAN REFERRAL HOTLINE AT IF YOU CAN NOT AFFORD TO SEE A PHYSICIAN YOU CAN CHOSE FROM THE FOLLOWING [facility] [address] [facility] [address] [facility] [address] [facility] [address] [facility] [address] [facility] [facility]. [address] Additional Instructions: Follow-up with your primary care physician within 1 week. Return to the emergency department immediately should you have any new or worsening symptoms, uncontrolled fevers, or other unexplained symptoms. Take all medications as directed. KAYLEIGH ROY PA-C Sep 07, 2016 02:03
[2016-09-07 02:57] VITALS: BP 178/109; PULSE 103; RESP 19; TEMP 98.7
== END 2016-09-07 03:00 | disposition home or self-care (01) ==
LOC: FTE 21:37
DX: N39.0 Urinary tract infection, site not specified (principal); R22.42 Localized swelling, mass and lump, left lower limb; R11.2 Nausea with vomiting, unspecified; I10 Essential (primary) hypertension; E11.9 Type 2 diabetes mellitus without complications; Z79.4 Long term (current) use of insulin; Z79.84 Long term (current) use of oral hypoglycemic drugs
CPT/HCPCS: 80053; 81001; 81003; 83690; 85025; 87086; 93971; J0696; J2270; J2405; J7040; 36415; 96361; 96365; 96375; 96376

== ENCOUNTER 2016-11-04 22:02 | Emergency (ER) | payer OTHER ==
[~2016-11-04] VITALS: Ht 170.2 cm; Wt 173.0 kg
[~2016-11-04 22:02] MED LIST changes: +DOXY100T20 PO
[2016-11-04 23:14] VITALS: Ht 170.2 cm; Wt 173.0 kg
[2016-11-04] MEDS ORDERED: KETOROLAC 30 MG INJ IV STA (23:33)
[2016-11-04] MEDS ORDERED: SOD CHLORIDE 0.9% 1,000 ML IV STA (23:33)
--- NOTE | 2016-11-04 23:33 | ERA ---
ER Documentation Chief Complaint Date/Time DATE: 11/04/16 TIME: 23:30 Chief Complaint C/O BILATERAL KIDNEY PAIN, NAUSEA, VOMITING X 3 HPI 36-year-old female complaining of 2 days of bilateral "kidney pain". Patient has a history of kidney stones and states that this feels the same. Patient has also been experiencing nausea vomiting and diarrhea. Patient's medical history includes fibromyalgia, diabetes. Patient denies smoking, alcohol use or any other medical conditions. Patient denies dysuria, hematuria, vaginal discharge, foul odor, difficulty breathing, dyspnea, shortness of breath, chest pain or abdominal pain. ROS All systems reviewed and are negative except as per history of present illness. Medications Home Meds Active Scripts Acetaminophen* (Tylenol*) 325 Mg Tablet, 1 TAB PO Q8 Y for PAIN AND OR ELEVATED TEMP, #20 TAB Prov:IMELDA SLAUGHTER PA-C 11/05/16 Doxycycline Hyclate* (Doxycycline Hyclate*) 100 Mg Tablet.dr, 100 MG PO BID for 10 Days, #20 TAB Prov:KAYLEIGH ROY PA-C 09/07/16 Acetaminophen* (Tylenol*) 325 Mg Tablet, 2 TAB PO Q8 Y for PAIN AND OR ELEVATED TEMP, #20 TAB Prov:JIMBO,JUANY 09/05/16 Cephalexin* (Keflex*) 500 Mg Capsule, 500 MG PO BID WITH MEALS for 10 Days, CAP Prov:JIMBO,JUANY 09/05/16 Hydrocodone/Acetaminophen ([place] 5-325 Tablet) 1 Each Tablet, 1 TAB PO Q6H Y for PAIN, #20 TAB Prov:INGA FERRO NP 08/16/16 Phenazopyridine Hcl* (Pyridium*) 200 Mg Tab, 200 MG PO TID Y for URINARY PAIN, # 6 TAB Prov:INGA FERRO NP 08/16/16 Ciprofloxacin Hcl* (Ciprofloxacin Hcl*) 500 Mg Tablet, 500 MG PO BID for 10 Days , TAB Prov:INGA FERRO NP 08/16/16 Ibuprofen* (Motrin*) 600 Mg Tab, 600 MG PO Q6, #30 TAB Prov:HECTOR BRITO PA-C 06/30/16 Amoxicillin/Potassium Clav (Amox-Clav 875-125 mg Tablet) 875-125 mg Tab, 1 TAB PO BID for 10 Days, #20 TAB Prov:HECTOR BRITO PA-C 06/30/16 Hydrocodone/Acetaminophen ([place] 5-325 Tablet) 1 Each Tablet, 1 EACH PO Q6, #12 TAB Prov:HECTOR BRITO PA-C 06/30/16 Ciprofloxacin (Ciprofloxacin) 500 Mg/5 Ml Binta.mc.rec, 500 MG PO BID, #14 TAB Prov:KAYLEIGH ROY PA-C 06/17/16 Hydrocodone/Acetaminophen ([place] 5-325 Tablet) 1 Each Tablet, 1 TAB PO Q6H Y for PAIN, #6 TAB Prov:KAYLEIGH ROY PA-C 06/17/16 Ondansetron (Ondansetron Odt) 4 Mg Tab.rapdis, 4 MG PO Q6H Y for NAUSEA AND/OR VOMITING, #10 TAB Prov:KAYLEIGH ROY PA-C 06/17/16 Hydrocodone/Acetaminophen ([place] 10-325 Tablet) 1 Each Tablet, 1 TAB PO Q6H Y for PAIN, #10 TAB Prov:GRAZYNA COREAS PA-C 05/18/16 Clindamycin Hcl* (Clindamycin Hcl*) 300 Mg Capsule, 300 MG PO TID for 10 Days, CAP Prov:GRAZYNA COREAS PA-C 05/18/16 Ondansetron Hcl* (Zofran*) 4 Mg Tablet, 4 MG PO Q6H for NAUSEA AND/OR VOMITING, #10 TAB Prov:BEV OWENS NP 05/06/16 Ibuprofen* (Ibuprofen*) 600 Mg Tablet, 600 MG PO Q6, #15 TAB Prov:BEV OWENS NP 05/06/16 Hydrocodone/Acetaminophen ([place] 5-325 Tablet) 1 Each Tablet, 1 TAB PO Q6H Y for PAIN, #7 TAB Prov:BEV OWENS NP 05/06/16 Ciprofloxacin Hcl* (Ciprofloxacin Hcl*) 500 Mg Tablet, 500 MG PO BID for 7 Days , TAB Prov:BEV OWENS NP 05/06/16 Reported Medications Clonidine Hcl* (Clonidine Hcl*) Unknown Strength Tab, PO Q6, #10 TAB 08/16/16 Insulin Glargine* (Lantus*) Unknown Strength Soln, SC BID, #1 VIAL 08/16/16 Metformin* (Glucophage*) Unknown Strength Tablet, PO BID, #20 TAB 08/16/16 Allergies Allergies: Coded Allergies: Sulfa (Sulfonamide Antibiotics) (Unverified Allergy, Unknown, HIVES,, 06/16) PMhx/Soc History of Surgery: Yes (Cholecystectomy, appendectomy, oophorectomy, HERNIA REPAIR) Anesthesia Reaction: No Hx Neurological Disorder: No (RHEUMOTOID ARTHRITIS, THYROID) Hx Respiratory Disorders: No Hx Cardiac Disorders: No (HTN, DM) Hx Psychiatric Problems: No Hx Miscellaneous Medical Probl: Yes (diabetes hypertension fibromyalgia kidney stone) Hx Alcohol Use: No Hx Substance Use: No Hx Tobacco Use: No Physical Exam Vitals Vital Signs Date Time Temp Pulse Resp B/P Pulse Ox O2 Delivery O2 Flow Rate FiO2 11/04/16 23:14 98.3 79 16 140/93 95 Physical Exam Const: Morbidly obese 36-year-old female in a wheelchair on presentation Head: Atraumatic Eyes: Normal Conjunctiva ENT: Normal External Ears, Nose and Mouth. Neck: Full range of motion..~ No meningismus. Resp: Clear to auscultation bilaterally Cardio: Regular rate and rhythm, no murmurs Abd: Soft, non tender, non distended. Normal bowel sounds. No abdominal tenderness. No soft suprapubic tenderness. Skin: No petechiae or rashes Back: Bilateral CVA tenderness. No midline or flank tenderness Ext: Pitting edema and stasis dermatitis. Neur: Awake and alert Psych: Normal Mood and Affect Result Diagram: 11/05/16 0001 11/05/16 0001 Results 24 hrs Laboratory Tests Test 11/05/16 00:01 White Blood Count 6.510^3/ul Red Blood Count 4.4110^6/ul Hemoglobin 12.8g/dl Hematocrit 36.8% Mean Corpuscular Volume 83.4fl Mean Corpuscular Hemoglobin 29.0pg Mean Corpuscular Hemoglobin Concent 34.8g/dl Red Cell Distribution Width 12.8% Platelet Count 55151^3/UL Mean Platelet Volume 11.4fl Neutrophils % 56.6% Lymphocytes % 33.8% Monocytes % 4.6% Eosinophils % 4.3% Basophils % 0.5% Nucleated Red Blood Cells % 0.0/100WBC Neutrophils # 3.710^3/ul Lymphocytes # 2.210^3/ul Monocytes # 0.310^3/ul Eosinophils # 0.310^3/ul Basophils # 0.010^3/ul Nucleated Red Blood Cells # 0.010^3/ul Urine Color LT. YELLOW Urine Clarity CLEAR Urine pH 6.0 Urine Specific [place] 1.015 Urine Ketones NEGATIVE Urine Nitrite NEGATIVE Urine Bilirubin NEGATIVE Urine Urobilinogen 0.2 E.U./dL Urine Leukocyte Esterase NEGATIVE Urine Hemoglobin NEGATIVE Urine Glucose >=1000% Urine Total Protein NEGATIVE Sodium Level 140mmol/L Potassium Level 3.8mmol/L Chloride Level 101mmol/L Carbon Dioxide Level 30mmol/L Anion Gap 13 Blood Urea Nitrogen 11mg/dl Creatinine 0.50mg/dl Glucose Level 286mg/dl Calcium Level 9.0mg/dl Total Bilirubin 0.2mg/dl Direct Bilirubin 0.00mg/dl Indirect Bilirubin 0.2mg/dl Aspartate Amino Transf (AST/SGOT) 43IU/L Alanine Aminotransferase (ALT/SGPT) 49IU/L Alkaline Phosphatase 90IU/L Total Protein 6.9g/dl Albumin 4.3g/dl Globulin 2.60g/dl Albumin/Globulin Ratio 1.65 Lipase 36U/L Current Medications Medications (Trade) Dose Ordered Sig/Jovon Route PRN Reason Start Time Stop Time Status Last Admin Dose Admin Sodium Chloride (NS) 1,000 ml @ 1,000 mls/hr Q1H STAT IV 11/04/16 23:33 11/05/16 00:32 DC 11/05/16 00:12 Ketorolac Tromethamine (Toradol) 30 mg ONCE STAT IV 11/04/16 23:33 11/04/16 23:36 DC 11/05/16 00:12 Procedures/[facility] This is a 36-year-old female presenting for a chief complaint of bilateral flank pain. Patient had lab work done to evaluate for possible kidney stone versus infection. Patient's labs were largely unremarkable for the exception of glucose in the blood and urine. test was negative. Patient's blood glucose was under 300 and at this time I very little suspicion for DKA or honk, pyelonephritis, nephrolithiasis, cholangitis, peritonitis, acute or chronic back injury, or other bacterial involvement. Patient's current condition is stable for discharge. We will go ahead and discharge patient with discharge instructions and return precautions. Patient will be given acetaminophen for symptomatic treatment/discomfort. Departure Diagnosis: Primary Impression: Flank pain Additional Impression: Diabetes mellitus Qualified Code: E11.8 - Type 2 diabetes mellitus with complication, with long- term current use of insulin Condition: Stable Additional Instructions: Follow up with your PCP within the next 1-3 days for a more thorough evaluation and a possible referral to a specialist. Return the the emergency department immediately if symptoms worsen or change. If you have any questions regarding medications, ask your pharmacist or us before you leave. If any adverse reactions occur while taking your medications, discontinue the treatment and return to the emergency department immediately. Take your medications as directed, and complete the entire course of treatment. IMELDA SLAUGHTER PA-C Nov 04, 2016 23:33
[2016-11-05 01:05] LABS: ADD SCAN DIFF NO
[2016-11-05 01:06] LABS: BASOPHILS % 0.5 % (0.0-2.0); EOSINOPHILS # 0.3 10^3/ul (0.0-0.5); EOSINOPHILS % 4.3 % (0.0-7.0); HEMATOCRIT 36.8 % (37.0-47.0); HEMOGLOBIN 12.8 g/dl (12.0-16.0); LYMPHOCYTES # 2.2 10^3/ul (0.8-2.9); LYMPHOCYTES % 33.8 % (15.0-51.0); MEAN CORPUSCULAR HGB CONC 34.8 g/dl (32.0-37.0); MEAN CORPUSCULAR VOLUME 83.4 fl (82.0-101.0); MEAN PLATELET VOLUME 11.4 fl (7.4-10.4); MONOCYTE # 0.3 10^3/ul (0.3-0.9); MONOCYTES % 4.6 % (0.0-11.0); NEUTROPHIL # 3.7 10^3/ul (1.6-7.5); NEUTROPHILS % 56.6 % (39.0-77.0); PLATELET COUNT 175 10^3/UL (140-415); RED BLOOD COUNT 4.41 10^6/ul (4.20-5.40); RED CELL DISTRIBUTION WIDTH 12.8 % (11.5-14.5); WHITE BLOOD COUNT 6.5 10^3/ul (4.8-10.8)
[2016-11-05 01:22] LABS: ADD UMIC NO; UR BILIRUBIN (Dip) NEGATIVE (NEGATIVE); UR BLOOD (Dip) NEGATIVE (NEGATIVE); UR CLARITY CLEAR (CLEAR); UR COLOR LT. YELLOW (YELLOW); UR GLUCOSE (Dip) >=1000 % (NEGATIVE); UR KETONES (Dip) NEGATIVE (NEGATIVE); UR LEUKOCYTE ESTERASE (Dip) NEGATIVE (NEGATIVE); UR NITRITE (Dip) NEGATIVE (NEGATIVE); UR TOTAL PROTEIN (Dip) NEGATIVE (NEGATIVE); UR UROBILINOGEN (Dip) 0.2 E.U./dL (0.1-1.0)
[2016-11-05 01:27] LABS: ALBUMIN 4.3 g/dl (3.3-4.9); ALBUMIN/GLOBULIN RATIO 1.65; BILIRUBIN,INDIRECT 0.2 mg/dl (0-1.1); BILIRUBIN,TOTAL 0.2 mg/dl (0.2-1.3); CREATININE 0.5 mg/dl (0.44-1.00); POTASSIUM 3.8 mmol/L (3.5-5.1); TOTAL PROTEIN 6.9 g/dl (6.1-8.1)
[2016-11-05] MEDS ORDERED: ACET325T33 PO (02:09)
[2016-11-05 02:29] VITALS: BP 134/81; PULSE 81; RESP 16
== END 2016-11-05 02:30 | disposition home or self-care (01) ==
LOC: FTE 22:02
DX: R10.9 Unspecified abdominal pain (principal); E11.8 Type 2 diabetes mellitus with unspecified complications; I10 Essential (primary) hypertension; Z79.4 Long term (current) use of insulin; Z79.84 Long term (current) use of oral hypoglycemic drugs
CPT/HCPCS: 36415; 80053; 81003; 83690; 85025; 96374; J1885; J7030; Z7502

== ENCOUNTER 2017-01-19 22:47 | Emergency (ER) | payer OTHER ==
[~2017-01-19] VITALS: Ht 170.2 cm; Wt 174.1 kg
[2017-01-19 23:12] VITALS: Ht 170.2 cm; Wt 174.1 kg
[2017-01-20 00:58] VITALS: TEMP 98.9
[2017-01-20] MEDS ORDERED: ONDANSETRON 4 MG INJ IV STA (01:56)
[2017-01-20] MEDS ORDERED: SOD CHLORIDE 0.9% 1,000 ML IV STA (01:56)
[2017-01-20] MEDS ORDERED: morphine 4 MG/ML VIAL IV STA ×2 (01:56→02:55)
--- NOTE | 2017-01-20 02:02 | ERD ---
ER Documentation Chief Complaint Date/Time DATE: 01/20/17 TIME: 01:59 Chief Complaint low back pain, low ab pains, R neck pains x 4 days, hx of hernias,HTN,DM HPI Patient is a 36-year-old female who presents with 3 days of low-grade fever, bilateral back pain and suprapubic pain associated with dysuria. She reports 3 episodes of vomiting. She reports having similar episodes in the past associated with urinary tract infections. The patient is wheelchair-bound due to herniated disks in her thoracic and lumbar spine for the last year. She has chronic numbness in her bilateral legs and chronic intermittent urinary incontinence for the last year. She denies any acute change in the symptoms. She is being followed by pain management doctor and a communication specialist. The patient also complains of right facial pain for the last week. She thinks that it is also swollen. ROS All systems reviewed and are negative except as per history of present illness. Medications Home Meds Active Scripts Cephalexin* (Keflex*) 500 Mg Capsule, 500 MG PO QID for 7 Days, CAP Prov:TRINIDAD HANNAH MD 01/20/17 Hydrocodone/Acetaminophen ([place] 5-325 Tablet) 1 Each Tablet, 1 TAB PO Q6H Y for PAIN, #20 TAB Prov:INGA FERRO NP 08/16/16 Ibuprofen* (Motrin*) 600 Mg Tab, 600 MG PO Q6, #30 TAB Prov:HECTOR BRITO PA-C 06/30/16 Reported Medications Hydrocodone/Acetaminophen ([place] 5-325 Tablet) 1 Each Tablet, 1 EACH PO T 1 TAB PO Q6H PRN, TAB 01/20/17 Trazodone Hcl* (Desyrel*) 100 Mg Tab, 100 MG PO QHS, #30 TAB 01/20/17 Gabapentin* (Gabapentin*) 800 Mg Tablet, 800 MG PO TID, #90 TAB 01/20/17 Omeprazole* (Omeprazole*) 40 Mg Capsule.dr, 40 MG PO DAILY, #30 CAP 01/20/17 Benazepril Hcl* (Benazepril Hcl*) 10 Mg Tablet, 10 MG PO DAILY, #30 TAB 01/20/17 Ranitidine Hcl* (Ranitidine Hcl*) 150 Mg Tablet, 150 MG PO HS, #30 TAB 01/20/17 Furosemide* (Furosemide*) 20 Mg Tablet, 20 MG PO DAILY, #60 TAB 01/20/17 Metoprolol Tartrate* (Lopressor*) 100 Mg Tablet, 100 MG PO BID, #60 TAB 01/20/17 Baclofen* (Baclofen*) 10 Mg Tablet, 10 MG PO TID, TAB 01/20/17 Ergocalciferol (Vitamin D2) (VITAMIN D2) 50,000 Unit Capsule, 18932 UNIT PO, CAP 01/20/17 Insulin Glargine* (Lantus*) 100 Unit/Ml Soln, 65 UNIT SC QHS, #1 VIAL 01/20/17 Insulin Lispro (Humalog) 100 Unit/1 Ml Cartridge, 10 UNIT SQ USE 10u SC TID 01/20/17 Metformin* (Glucophage*) Unknown Strength Tablet, PO BID, #20 TAB 08/16/16 Discontinued Reported Medications Clonidine Hcl* (Clonidine Hcl*) Unknown Strength Tab, PO Q6, #10 TAB 08/16/16 Insulin Glargine* (Lantus*) Unknown Strength Soln, SC BID, #1 VIAL 08/16/16 Discontinued Scripts Acetaminophen* (Tylenol*) 325 Mg Tablet, 1 TAB PO Q8 Y for PAIN AND OR ELEVATED TEMP, #20 TAB Prov:IMELDA SLAUGHTER PA-C 11/05/16 Doxycycline Hyclate* (Doxycycline Hyclate*) 100 Mg Tablet.dr, 100 MG PO BID for 10 Days, #20 TAB Prov:KAYLEIGH ROY PA-C 09/07/16 Acetaminophen* (Tylenol*) 325 Mg Tablet, 2 TAB PO Q8 Y for PAIN AND OR ELEVATED TEMP, #20 TAB Prov:JIMBO,JUANY 09/05/16 Cephalexin* (Keflex*) 500 Mg Capsule, 500 MG PO BID WITH MEALS for 10 Days, CAP Prov:JIMBO,JUANY 09/05/16 Phenazopyridine Hcl* (Pyridium*) 200 Mg Tab, 200 MG PO TID Y for URINARY PAIN, # 6 TAB Prov:INGA FERRO NP 08/16/16 Ciprofloxacin Hcl* (Ciprofloxacin Hcl*) 500 Mg Tablet, 500 MG PO BID for 10 Days , TAB Prov:INGA FERRO NP 08/16/16 Amoxicillin/Potassium Clav (Amox-Clav 875-125 mg Tablet) 875-125 mg Tab, 1 TAB PO BID for 10 Days, #20 TAB Prov:HECTOR BRITO PA-C 06/30/16 Hydrocodone/Acetaminophen ([place] 5-325 Tablet) 1 Each Tablet, 1 EACH PO Q6, #12 TAB Prov:HECTOR BRITO PA-C 06/30/16 Ciprofloxacin (Ciprofloxacin) 500 Mg/5 Ml Binta.mc.rec, 500 MG PO BID, #14 TAB Prov:KAYLEIGH ROY PA-C 06/17/16 Hydrocodone/Acetaminophen ([place] 5-325 Tablet) 1 Each Tablet, 1 TAB PO Q6H Y for PAIN, #6 TAB Prov:KAYLEIGH ROY PA-C 06/17/16 Ondansetron (Ondansetron Odt) 4 Mg Tab.rapdis, 4 MG PO Q6H Y for NAUSEA AND/OR VOMITING, #10 TAB Prov:KAYLEIGH ROY PA-C 06/17/16 Hydrocodone/Acetaminophen ([place] 10-325 Tablet) 1 Each Tablet, 1 TAB PO Q6H Y for PAIN, #10 TAB Prov:GRAZYNA COREAS PA-C 05/18/16 Clindamycin Hcl* (Clindamycin Hcl*) 300 Mg Capsule, 300 MG PO TID for 10 Days, CAP Prov:GRAZYNA COREAS PA-C 05/18/16 Ondansetron Hcl* (Zofran*) 4 Mg Tablet, 4 MG PO Q6H for NAUSEA AND/OR VOMITING, #10 TAB Prov:BEV OWENS NP 05/06/16 Ibuprofen* (Ibuprofen*) 600 Mg Tablet, 600 MG PO Q6, #15 TAB Prov:BEV OWENS NP 05/06/16 Hydrocodone/Acetaminophen ([place] 5-325 Tablet) 1 Each Tablet, 1 TAB PO Q6H Y for PAIN, #7 TAB Prov:BEV OWENS NP 05/06/16 Ciprofloxacin Hcl* (Ciprofloxacin Hcl*) 500 Mg Tablet, 500 MG PO BID for 7 Days , TAB Prov:BEV OWENS NP 05/06/16 Allergies Allergies: Coded Allergies: Sulfa (Sulfonamide Antibiotics) (Unverified Allergy, Unknown, HIVES,, 01/20) PMhx/Soc Past medical history: Diabetes mellitus, hypertension, herniated disks of the thoracic and lumbar spine, kidney stones, fibromyalgia Past surgical history: Appendectomy, cholecystectomy, ovarian cyst, hernia Social history: Denies tobacco, alcohol or illicit drugs. History of Surgery: Yes (hernia repair, appendectomy, cholecystectomy, right ovary) Anesthesia Reaction: No Hx Neurological Disorder: No (RHEUMOTOID ARTHRITIS, THYROID) Hx Respiratory Disorders: No Hx Cardiac Disorders: No (HTN, DM) Hx Psychiatric Problems: No Hx Miscellaneous Medical Probl: Yes (diabetes hypertension fibromyalgia kidney stone) Hx Alcohol Use: No Hx Substance Use: No Hx Tobacco Use: No Smoking Status: Never smoker FmHx Family History: No coronary disease, No diabetes Physical Exam Vitals Vital Signs Date Time Temp Pulse Resp B/P Pulse Ox O2 Delivery O2 Flow Rate FiO2 01/20/17 05:58 73 18 110/48 100 Room Air 01/20/17 04:08 72 18 108/58 99 Nasal Cannula 2.0 01/20/17 00:58 98.9 66 20 171/77 99 Room Air 01/19/17 23:12 99.2 68 20 171/82 99 Physical Exam Const: Alert, no acute distress Head: Atraumatic Eyes: Normal Conjunctiva, no pallor, no icterus ENT: Normal External Ears, Nose and Mouth. No symptoms mandibular swelling or tenderness. Prominence of right parotid gland. No soft tissue erythema or warmth. Normal dentition. Neck: Full range of motion..~ No meningismus. Resp: Clear to auscultation bilaterally, no wheezes, no rales Cardio: Regular rate and rhythm, no murmurs Abd: Obese, soft, suprapubic tenderness, non distended. Normal bowel sounds Back: No midline tenderness, no significant paraspinal tenderness, no CVA tenderness Skin: No petechiae or rashes Ext: No cyanosis, or edema Neur: Awake and alert, motor and sensory function grossly intact Psych: Normal Mood and Affect Result Diagram: 01/20/1720701/20/17 020 Results 24 hrs Laboratory Tests Test 01/20/17 02:00 01/20/17 02:08 Urine Color YELLOW Urine Clarity SLIGHTLY CLOUDY Urine pH 6.0 Urine Specific [place] 1.024 Urine Ketones NEGATIVEmg/dL Urine Nitrite NEGATIVEmg/dL Urine Bilirubin NEGATIVEmg/dL Urine Urobilinogen NEGATIVEmg/dL Urine Leukocyte Esterase 1+Katie/ul Urine Microscopic RBC 6/HPF Urine Microscopic WBC 41/HPF Urine Squamous Epithelial Cells FEW/HPF Urine Bacteria FEW/HPF Urine Mucus MANY/HPF Urine Hemoglobin NEGATIVEmg/dL Urine Glucose NEGATIVEmg/dL Urine Total Protein 1+mg/dl White Blood Count 8.010^3/ul Red Blood Count 4.2010^6/ul Hemoglobin 12.0g/dl Hematocrit 34.3% Mean Corpuscular Volume 81.7fl Mean Corpuscular Hemoglobin 28.6pg Mean Corpuscular Hemoglobin Concent 35.0g/dl Red Cell Distribution Width 12.9% Platelet Count 31514^3/UL Mean Platelet Volume 11.2fl Neutrophils % 63.9% Lymphocytes % 25.9% Monocytes % 3.6% Eosinophils % 5.8% Basophils % 0.4% Nucleated Red Blood Cells % 0.0/100WBC Neutrophils # (Manual) 510^3/ul Lymphocytes # 2.110^3/ul Monocytes # 0.310^3/ul Eosinophils # 0.510^3/ul Basophils # 0.010^3/ul Nucleated Red Blood Cells # 0.010^3/ul Sodium Level 139mmol/L Potassium Level 3.3mmol/L Chloride Level 99mmol/L Carbon Dioxide Level 30mmol/L Anion Gap 13 Blood Urea Nitrogen 6mg/dl Creatinine 0.57mg/dl Glucose Level 136mg/dl Calcium Level 8.6mg/dl Total Bilirubin 0.4mg/dl Direct Bilirubin 0.00mg/dl Indirect Bilirubin 0.4mg/dl Aspartate Amino Transf (AST/SGOT) 32IU/L Alanine Aminotransferase (ALT/SGPT) 38IU/L Alkaline Phosphatase 68IU/L Total Protein 7.0g/dl Albumin 4.0g/dl Globulin 3.00g/dl Albumin/Globulin Ratio 1.33 Lipase 21U/L Current Medications Medications (Trade) Dose Ordered Sig/Jovon Route PRN Reason Start Time Stop Time Status Last Admin Dose Admin Sodium Chloride (NS) 1,000 ml @ 1,000 mls/hr Q1H STAT IV 01/20/17 01:56 01/20/17 02:55 DC 01/20/17 02:12 Morphine Sulfate (morphine) 4 mg ONCE STAT IV 01/20/17 01:56 01/20/17 01:58 DC 01/20/17 02:13 Ondansetron HCl (Zofran Inj) 4 mg ONCE STAT IV 01/20/17 01:56 01/20/17 01:58 DC 01/20/17 02:13 Morphine Sulfate 4 mg 4 mg ONCE STAT IV 01/20/17 02:55 01/20/17 02:56 DC 01/20/17 03:01 Ceftriaxone Sodium (Rocephin) 50 ml @ 100 mls/hr ONCE ONCE IVPB 01/20/17 04:30 01/20/17 04:59 DC 01/20/17 04:28 Procedures/MDM MDM: Patient is a 36-year-old female with chronic herniated disks in the spine causing her to be wheelchair-bound. She presents with 3 days of low back pain and dysuria. She has benign back and abdominal exam. Her UA is consistent with UTI. She does not have signs of sepsis. She is tolerating oral intake in the ER. She is stable vital signs. A urine culture was sent, an initial dose of Rocephin was given, and the patient will be discharged with a 7 day course of Keflex. She was advised on return precautions and need for PMD follow-up. There is no evidence of acute neurologic symptoms. There are no features that are suggestive of spinal abscess. The patient also complained of facial pain and swelling, and has slightly enlarged right parotid gland. There is no evidence of deep space or dental infection. Departure Diagnosis: Primary Impression: UTI (urinary tract infection) Urinary tract infection type: site unspecified Hematuria presence: without hematuria Qualified Code: N39.0 - Urinary tract infection without hematuria, site unspecified Additional Impressions: Low back pain Chronicity: chronic Back pain laterality: bilateral Sciatica presence: without sciatica Qualified Code: M54.5 - Chronic bilateral low back pain without sciatica Parotitis Condition: Stable TRINIDAD HANNAH MD Jan 20, 2017 02:02
[2017-01-20 02:41] LABS: BASOPHILS % 0.4 % (0.0-2.0); EOSINOPHILS # 0.5 10^3/ul (0.0-0.5); EOSINOPHILS % 5.8 % (0.0-7.0); HEMATOCRIT 34.3 % (37.0-47.0); LYMPHOCYTES # 2.1 10^3/ul (0.8-2.9); LYMPHOCYTES % 25.9 % (15.0-51.0); MEAN CORPUSCULAR HEMOGLOBIN 28.6 pg (29.0-33.0); MEAN CORPUSCULAR VOLUME 81.7 fl (82.0-101.0); MEAN PLATELET VOLUME 11.2 fl (7.4-10.4); MONOCYTE # 0.3 10^3/ul (0.3-0.9); MONOCYTES % 3.6 % (0.0-11.0); NEUTROPHILS % 63.9 % (39.0-77.0); PLATELET COUNT 156 10^3/UL (140-415); RED CELL DISTRIBUTION WIDTH 12.9 % (11.5-14.5)
[2017-01-20 02:47] LABS: ADD UMIC YES; UR ASCORBIC ACID NEGATIVE (NEGATIVE); UR BACTERIA FEW /HPF (NONE SEEN); UR BILIRUBIN (Dip) NEGATIVE (NEGATIVE); UR BLOOD (Dip) NEGATIVE (NEGATIVE); UR CLARITY SLIGHTLY CLOUDY (CLEAR); UR COLOR YELLOW (YELLOW); UR GLUCOSE (Dip) NEGATIVE (NEGATIVE); UR KETONES (Dip) NEGATIVE (NEGATIVE); UR LEUKOCYTE ESTERASE (Dip) 1+ Leu/ul (NEGATIVE); UR MUCUS MANY /HPF (NONE SEEN); UR NITRITE (Dip) NEGATIVE (NEGATIVE); UR RBC 6 /HPF (0-5); UR SPECIFIC GRAVITY (Dip) 1.024 (1.003-1.030); UR SQUAMOUS EPITHELIAL CELL FEW /HPF (FEW); UR TOTAL PROTEIN (Dip) 1+ mg/dl (NEGATIVE); UR UROBILINOGEN (Dip) NEGATIVE (NEGATIVE)
[2017-01-20 02:58] LABS: ALBUMIN/GLOBULIN RATIO 1.33; BILIRUBIN,INDIRECT 0.4 mg/dl (0-1.1); BILIRUBIN,TOTAL 0.4 mg/dl (0.2-1.3); CALCIUM 8.6 mg/dl (8.4-10.2); CREATININE 0.57 mg/dl (0.44-1.00); POTASSIUM 3.3 mmol/L (3.5-5.1)
[2017-01-20] MEDS ORDERED: CEFTRIAXONE 2 GM/50 ML (PMX) 50 ML IVPB ONE (04:30)
[2017-01-20] MEDS ORDERED: RANI150T5 PO (04:58)
[2017-01-20] MEDS ORDERED: FURO20TA3 PO (04:58)
[2017-01-20] MEDS ORDERED: INSU100C SQ (04:58)
[2017-01-20] MEDS ORDERED: METO-407 PO (04:58)
[2017-01-20] MEDS ORDERED: ERGO500037 PO (04:58)
[2017-01-20] MEDS ORDERED: LANT3I SC (04:58)
[2017-01-20] MEDS ORDERED: BENA10TA48 PO (04:58)
[2017-01-20] MEDS ORDERED: BACL10TA PO (04:58)
[2017-01-20] MEDS ORDERED: GABA-528 PO (05:06)
[2017-01-20] MEDS ORDERED: HYDR-906 PO (05:06)
[2017-01-20] MEDS ORDERED: OMEP40CA6 PO (05:06)
[2017-01-20] MEDS ORDERED: TRAZ100T15 PO (05:06)
[2017-01-20] MEDS ORDERED: CEPH-443 PO (05:51)
[2017-01-20 05:58] VITALS: BP 110/48; PULSE 73; RESP 18
== END 2017-01-20 06:14 | disposition home or self-care (01) ==
LOC: E/R 22:47
DX: N39.0 Urinary tract infection, site not specified (principal); K11.20 Sialoadenitis, unspecified; E11.9 Type 2 diabetes mellitus without complications; I10 Essential (primary) hypertension; Z79.4 Long term (current) use of insulin; Z79.84 Long term (current) use of oral hypoglycemic drugs
CPT/HCPCS: 36415; 80053; 81001; 83690; 85025; 87086; 96374; 96375; 96376; J0696; J2270; J2405; J7030; Z7502

== ENCOUNTER 2017-03-04 17:18 | Emergency (ER) | payer OTHER ==
[~2017-03-04] VITALS: Ht 170.2 cm; Wt 172.0 kg
[~2017-03-04 17:18] MED LIST changes: -ACET325T33 PO; -AMOX1TAB10 PO; +BACL10TA PO; +BENA10TA48 PO; -CIPR500S2 PO; -CIPR500T4 PO; -CLIN-73 PO; -CLON-379 PO; -DOXY100T20 PO; +ERGO500037 PO; +FURO20TA3 PO; +GABA-528 PO; -HYDR-902 PO; +INSU100C SQ; +METO-407 PO; +OMEP40CA6 PO; -ONDA4TAB14 PO; -ONDA4TAB8 PO; -PHEN-538 PO; +RANI150T5 PO; +TRAZ100T15 PO
[2017-03-04 17:21] VITALS: Ht 170.2 cm; Wt 172.0 kg
[2017-03-04] MEDS ORDERED: HYDROmorphONE 1 MG/ML SYG IV STA (17:48)
[2017-03-04] MEDS ORDERED: ONDANSETRON 4 MG INJ IV STA (17:48)
[2017-03-04] MEDS ORDERED: SOD CHLORIDE 0.9% 1,000 ML IV STA (17:48)
[2017-03-04 18:32] LABS: BASOPHIL # 0.1 10^3/ul (0.0-0.1); BASOPHILS % 0.6 % (0.0-2.0); EOSINOPHILS # 0.4 10^3/ul (0.0-0.5); EOSINOPHILS % 4.8 % (0.0-7.0); HEMATOCRIT 35.4 % (37.0-47.0); HEMOGLOBIN 12.3 g/dl (12.0-16.0); LYMPHOCYTES # 2.4 10^3/ul (0.8-2.9); MEAN CORPUSCULAR HEMOGLOBIN 28.7 pg (29.0-33.0); MEAN CORPUSCULAR HGB CONC 34.7 g/dl (32.0-37.0); MEAN CORPUSCULAR VOLUME 82.5 fl (82.0-101.0); MEAN PLATELET VOLUME 10.6 fl (7.4-10.4); MONOCYTE # 0.4 10^3/ul (0.3-0.9); NEUTROPHIL # 4.7 10^3/ul (1.6-7.5); NEUTROPHILS % 59.2 % (39.0-77.0); PLATELET COUNT 168 10^3/UL (140-415); RED BLOOD COUNT 4.29 10^6/ul (4.20-5.40); RED CELL DISTRIBUTION WIDTH 13.4 % (11.5-14.5); WHITE BLOOD COUNT 7.9 10^3/ul (4.8-10.8)
[2017-03-04 18:57] LABS: CALCIUM 9.2 mg/dl (8.4-10.2); CREATININE 0.66 mg/dl (0.44-1.00); POTASSIUM 3.5 mmol/L (3.5-5.1)
[2017-03-04 19:01] LABS: ADD UMIC YES; UR ASCORBIC ACID NEGATIVE (NEGATIVE); UR BILIRUBIN (Dip) NEGATIVE (NEGATIVE); UR BLOOD (Dip) NEGATIVE (NEGATIVE); UR CLARITY SLIGHTLY CLOUDY (CLEAR); UR COLOR YELLOW (YELLOW); UR GLUCOSE (Dip) NEGATIVE (NEGATIVE); UR KETONES (Dip) NEGATIVE (NEGATIVE); UR LEUKOCYTE ESTERASE (Dip) 1+ Leu/ul (NEGATIVE); UR NITRITE (Dip) NEGATIVE (NEGATIVE); UR RBC 1 /HPF (0-5); UR SPECIFIC GRAVITY (Dip) 1.014 (1.003-1.030); UR SQUAMOUS EPITHELIAL CELL FEW /HPF (FEW); UR TOTAL PROTEIN (Dip) NEGATIVE (NEGATIVE); UR UROBILINOGEN (Dip) NEGATIVE (NEGATIVE)
--- NOTE | 2017-03-04 19:03 | RADRPT ---
PROCEDURE: CT KUB. CLINICAL INDICATION: Flank pain TECHNIQUE: CT KUB (Renal Stone Survey) without contrast was performed on a multidetector high-reso lution CT scanner. No IV contrast was administered. Coronal and sagittal reformatted images were o btained from the axial source images. Images were reviewed on a high-resolution PACS workstation. Th e following dose reduction techniques were used: Automated exposure control, adjustment of the mA an d/or kV according to patient size and use of iterative reconstruction technique. The total exam CTD I equals 28 point a mGy and the total exam DLP equals 1994 mGy-cm. COMPARISON: 08/16/2016 FINDINGS: CT kidneys, ureters and bladder: The kidneys are symmetric in size, position, and morphology. There is a 4 mm nonobstructive calculus in the lower pole left kidney, unchanged from previous exam. . There is no hydronephrosis or hydroureter. The ureters are symmetric and normal. No ureteral calculus is identified. The bladder, as visualized, is normal. There are benign phleboliths within the pelvis, distinct and separate from the distal ureters. CT abdomen: The lung bases are clear. The heart size is normal, without pericardial thickening or effusion. The liver is normal in size and density without focal mass or intrahepatic biliary dilatation. The spleen is normal in size and homogeneous in density. The stomach is partially collapsed, but is grossly unremarkable. The pancreas as visualized is normal. The gallbladder surgically absent. The biliary tree is unremarkable and there is no evidence for biliary ductal dilatation. The adrenal glands are symmetric and normal. The aorta is of normal caliber. There is no retroperitoneal lymphadenopathy. The bowel and mesentery are unremarkable. Scar in the anterior abdominal wall is consistent with previous laparotomy and banks for hernia repair . This is unchanged from previous exam. The appendix is not visualized. There is no inflammatory change to suggest appendicitis. CT pelvis: The small bowel loops situated within the pelvis are unremarkable. The pelvic organs are normal. The pelvic sidewalls and inguinal regions are clear. The sigmoid colon and rectum are remarkable for advanced sigmoid diverticulosis. No mass, lymphadenopathy, or free fluid is seen. No acute inflammation is seen. The osseous structures are remarkable for mild degenerative spondylosis of the spine. No osteolytic or osteoblastic lesion is detected. IMPRESSION: 1. 4 mm nonobstructive calculus in the left kidney, unchanged from previous exam. 2. No evidence of urinary obstruction or ureteric calculus. 3. Advanced diverticulosis of the descending and sigmoid colon without evidence of diverticulitis. 4. Previous abdominal laparotomy, ventral hernia repair and cholecystectomy. RPTAT: QQ .Momo Bergman MD, Date Time Electronically viewed and signed by .Momo Bergman MD, on 03/04/2017 19:03 .[place]/
[2017-03-04] MEDS ORDERED: HYDR-902 PO (19:39)
[2017-03-04] MEDS ORDERED: ONDA4TAB14 PO (19:39)
[2017-03-04] MEDS ORDERED: CIPR500T4 PO (19:39)
--- NOTE | 2017-03-04 19:43 | ERD ---
ER Documentation Chief Complaint Date/Time DATE: 03/04/17 TIME: 19:40 Chief Complaint RT LOWER BACK PAIN X3 DAYS, DENIES PAINFUL URINATION. HPI This is a 37-year-old female complains of 3 days of right low back pain with dysuria and urinary frequency and she is concerned she has a kidney infection. She also has a history of kidney stones on the left kidney. She describes the pain in the right back is sharp and constant without radiation there is no nausea vomiting diarrhea or fever. No hematuria. No abdominal pain no radiation of pain into the stomach or down the back of the leg. Pain is relatively constant and moderate in severity ROS All systems reviewed and are negative except as per history of present illness. Medications Home Meds Active Scripts Ondansetron (Ondansetron Odt) 4 Mg Tab.rapdis, 4 MG PO Q6H Y for NAUSEA AND/OR VOMITING, #10 TAB Prov:WANDA MONIQUE DO 03/04/17 Ciprofloxacin Hcl* (Ciprofloxacin Hcl*) 500 Mg Tablet, 500 MG PO BID for 7 Days , TAB Prov:WANDA MONIQUE DO 03/04/17 Hydrocodone/Acetaminophen ([place] 10-325 Tablet) 1 Each Tablet, 1 TAB PO Q6H Y for PAIN, #20 TAB Prov:WANDA MONIQUE DO 03/04/17 Cephalexin* (Keflex*) 500 Mg Capsule, 500 MG PO QID for 7 Days, CAP Prov:TRINIDAD HANNAH MD 01/20/17 Hydrocodone/Acetaminophen ([place] 5-325 Tablet) 1 Each Tablet, 1 TAB PO Q6H Y for PAIN, #20 TAB Prov:INGA FERRO NP 08/16/16 Ibuprofen* (Motrin*) 600 Mg Tab, 600 MG PO Q6, #30 TAB Prov:HECTOR BRITO PA-C 06/30/16 Reported Medications Hydrocodone/Acetaminophen ([place] 5-325 Tablet) 1 Each Tablet, 1 EACH PO T 1 TAB PO Q6H PRN, TAB 01/20/17 Trazodone Hcl* (Desyrel*) 100 Mg Tab, 100 MG PO QHS, #30 TAB 01/20/17 Gabapentin* (Gabapentin*) 800 Mg Tablet, 800 MG PO TID, #90 TAB 01/20/17 Omeprazole* (Omeprazole*) 40 Mg Capsule.dr, 40 MG PO DAILY, #30 CAP 01/20/17 Benazepril Hcl* (Benazepril Hcl*) 10 Mg Tablet, 10 MG PO DAILY, #30 TAB 01/20/17 Ranitidine Hcl* (Ranitidine Hcl*) 150 Mg Tablet, 150 MG PO HS, #30 TAB 01/20/17 Furosemide* (Furosemide*) 20 Mg Tablet, 20 MG PO DAILY, #60 TAB 01/20/17 Metoprolol Tartrate* (Lopressor*) 100 Mg Tablet, 100 MG PO BID, #60 TAB 01/20/17 Baclofen* (Baclofen*) 10 Mg Tablet, 10 MG PO TID, TAB 01/20/17 Ergocalciferol (Vitamin D2) (VITAMIN D2) 50,000 Unit Capsule, 63970 UNIT PO, CAP 01/20/17 Insulin Glargine* (Lantus*) 100 Unit/Ml Soln, 65 UNIT SC QHS, #1 VIAL 01/20/17 Insulin Lispro (Humalog) 100 Unit/1 Ml Cartridge, 10 UNIT SQ USE 10u SC TID 01/20/17 Metformin* (Glucophage*) Unknown Strength Tablet, PO BID, #20 TAB 08/16/16 Allergies Allergies: Coded Allergies: Sulfa (Sulfonamide Antibiotics) (Unverified Allergy, Unknown, HIVES,, 01/20) PMhx/Soc History of Surgery: Yes (hernia repair, appendectomy, cholecystectomy, right ovary) Anesthesia Reaction: No Hx Neurological Disorder: No (RHEUMOTOID ARTHRITIS, THYROID) Hx Respiratory Disorders: No Hx Cardiac Disorders: No (HTN, DM) Hx Psychiatric Problems: No Hx Miscellaneous Medical Probl: Yes (diabetes hypertension fibromyalgia kidney stone) Hx Alcohol Use: No Hx Substance Use: No Hx Tobacco Use: No Smoking Status: Never smoker FmHx Family History: No coronary disease Physical Exam Vitals Vital Signs Date Time Temp Pulse Resp B/P Pulse Ox O2 Delivery O2 Flow Rate FiO2 03/04/17 17:21 97.9 76 18 130/78 94 Physical Exam Const: Well-developed, well-nourished, obese Head: Atraumatic, normocephalic Eyes: Normal Conjunctiva, PERRLA, EOMI, normal sclera, no nystagmus ENT: Normal External Ears, Nose and Mouth, moist mucus membranes. Neck: Full range of motion. No meningismus, no lymphadenopathy. Resp: Clear to auscultation bilaterally, no wheezing, rhonchi, rales Cardio: Regular rate and rhythm, no murmurs, S1 S2 present Abd: Soft, non tender x 4, non distended. Normal bowel sounds, no guarding or rebound, no pulsitile abdominal masses or bruits Skin: No petechiae or rashes, no ecchymosis , no maculopapular rash Back: Mild right flank tenderness Ext: No cyanosis, or edema, FROM x 4, normal inspection, neurovascularly intact x 4 Neur: Awake and alert, STR 5/5 x 4, sensation intact x 4, no focal findings, cerebellum intact Psych: Normal Mood and Affect Result Diagram: 03/04/17181503/04/171815 Results 24 hrs Laboratory Tests Test 03/04/17 18:00 03/04/17 18:16 Urine Color YELLOW Urine Clarity SLIGHTLY CLOUDY Urine pH 5.0 Urine Specific [place] 1.014 Urine Ketones NEGATIVEmg/dL Urine Nitrite NEGATIVEmg/dL Urine Bilirubin NEGATIVEmg/dL Urine Urobilinogen NEGATIVEmg/dL Urine Leukocyte Esterase 1+Katie/ul Urine Microscopic RBC 1/HPF Urine Microscopic WBC 12/HPF Urine Squamous Epithelial Cells FEW/HPF Urine Hemoglobin NEGATIVEmg/dL Urine Glucose NEGATIVEmg/dL Urine Total Protein NEGATIVEmg/dl White Blood Count 7.910^3/ul Red Blood Count 4.2910^6/ul Hemoglobin 12.3g/dl Hematocrit 35.4% Mean Corpuscular Volume 82.5fl Mean Corpuscular Hemoglobin 28.7pg Mean Corpuscular Hemoglobin Concent 34.7g/dl Red Cell Distribution Width 13.4% Platelet Count 97357^3/UL Mean Platelet Volume 10.6fl Neutrophils % 59.2% Lymphocytes % 30.0% Monocytes % 5.0% Eosinophils % 4.8% Basophils % 0.6% Nucleated Red Blood Cells % 0.0/100WBC Neutrophils # 4.710^3/ul Lymphocytes # 2.410^3/ul Monocytes # 0.410^3/ul Eosinophils # 0.410^3/ul Basophils # 0.110^3/ul Nucleated Red Blood Cells # 0.010^3/ul Sodium Level 139mmol/L Potassium Level 3.5mmol/L Chloride Level 99mmol/L Carbon Dioxide Level 34mmol/L Anion Gap 10 Blood Urea Nitrogen 9mg/dl Creatinine 0.66mg/dl Glucose Level 188mg/dl Calcium Level 9.2mg/dl Current Medications Medications (Trade) Dose Ordered Sig/Jovon Route PRN Reason Start Time Stop Time Status Last Admin Dose Admin Sodium Chloride (NS) 1,000 ml @ 1,000 mls/hr Q1H STAT IV 03/04/17 17:48 03/04/17 18:47 DC 03/04/17 18:44 Hydromorphone HCl (Dilaudid) 1 mg ONCE STAT IV 03/04/17 17:48 03/04/17 17:50 DC 03/04/17 18:41 Ondansetron HCl (Zofran Inj) 4 mg ONCE STAT IV 03/04/17 17:48 03/04/17 17:50 DC 03/04/17 18:41 Procedures/MDM PROCEDURE: CT KUB. CLINICAL INDICATION: Flank pain TECHNIQUE: CT KUB (Renal Stone Survey) without contrast was performed on a multidetector high-resolution CT scanner. No IV contrast was administered. Coronal and sagittal reformatted images were obtained from the axial source images. Images were reviewed on a high-resolution PACS workstation. The following dose reduction techniques were used: Automated exposure control, adjustment of the mA and/or kV according to patient size and use of iterative reconstruction technique. The total exam CTDI equals 28 point a mGy and the total exam DLP equals 1994 mGy-cm. COMPARISON: 08/16/2016 FINDINGS: CT kidneys, ureters and bladder: The kidneys are symmetric in size, position, and morphology. There is a 4 mm nonobstructive calculus in the lower pole left kidney, unchanged from previous exam.. There is no hydronephrosis or hydroureter. The ureters are symmetric and normal. No ureteral calculus is identified. The bladder, as visualized, is normal. There are benign phleboliths within the pelvis, distinct and separate from the distal ureters. CT abdomen: The lung bases are clear. The heart size is normal, without pericardial thickening or effusion. The liver is normal in size and density without focal mass or intrahepatic biliary dilatation. The spleen is normal in size and homogeneous in density. The stomach is partially collapsed, but is grossly unremarkable. The pancreas as visualized is normal. The gallbladder surgically absent. The biliary tree is unremarkable and there is no evidence for biliary ductal dilatation. The adrenal glands are symmetric and normal. The aorta is of normal caliber. There is no retroperitoneal lymphadenopathy. The bowel and mesentery are unremarkable. Scar in the anterior abdominal wall is consistent with previous laparotomy and banks for hernia repair. This is unchanged from previous exam. The appendix is not visualized. There is no inflammatory change to suggest appendicitis. CT pelvis: The small bowel loops situated within the pelvis are unremarkable. The pelvic organs are normal. The pelvic sidewalls and inguinal regions are clear. The sigmoid colon and rectum are remarkable for advanced sigmoid diverticulosis. No mass, lymphadenopathy, or free fluid is seen. No acute inflammation is seen. The osseous structures are remarkable for mild degenerative spondylosis of the spine. No osteolytic or osteoblastic lesion is detected. IMPRESSION: 1. 4 mm nonobstructive calculus in the left kidney, unchanged from previous exam. 2. No evidence of urinary obstruction or ureteric calculus. 3. Advanced diverticulosis of the descending and sigmoid colon without evidence of diverticulitis. 4. Previous abdominal laparotomy, ventral hernia repair and cholecystectomy. RPTAT: QQ .Momo Bergman MD, MD Date Time Electronically viewed and signed by .Momo Bergman MD, MD on 03/04/2017 19: 03 .M/ CC: WANDA MONIQUE DO Patient has no evidence of any abnormalities on blood work. There is also a small evidence of urinary tract infection. No evidence of kidney stone on the right or pyelonephritis. Will treat with Cipro, [place] and Zofran. Right back pain could be musculoskeletal in origin or having some type of urinary reflux causing ureter spasm. Departure Diagnosis: Primary Impression: UTI (urinary tract infection) Urinary tract infection type: site unspecified Hematuria presence: without hematuria Qualified Code: N39.0 - Urinary tract infection without hematuria, site unspecified Additional Impression: Back pain Back pain location: low back pain Chronicity: unspecified Back pain laterality: right Sciatica presence: without sciatica Qualified Code: M54.5 - Right-sided low back pain without sciatica, unspecified chronicity Condition: Stable Patient Instructions: Understanding Urinary Tract Infections (UTIs), Back Pain (Acute Or Chronic) WANDA MONIQUE DO Mar 04, 2017 19:43
[2017-03-04 20:12] VITALS: BP 130/85; PULSE 67; RESP 16; TEMP 98.1
== END 2017-03-04 20:12 | disposition home or self-care (01) ==
LOC: FTE 17:18
DX: N39.0 Urinary tract infection, site not specified (principal); I10 Essential (primary) hypertension; E11.9 Type 2 diabetes mellitus without complications; Z79.4 Long term (current) use of insulin; Z79.84 Long term (current) use of oral hypoglycemic drugs
CPT/HCPCS: 36415; 74176; 80048; 81001; 85025; 96374; 96375; J1170; J2405; J7030; Z7502

== ENCOUNTER 2017-04-11 18:31 | Emergency (ER) | payer OTHER ==
[~2017-04-11] VITALS: Ht 165.1 cm; Wt 168.1 kg
[~2017-04-11 18:31] MED LIST changes: +CIPR500T4 PO; +HYDR-902 PO; +ONDA4TAB14 PO
[2017-04-11 18:43] VITALS: Ht 165.1 cm; Wt 168.1 kg
[2017-04-11] MEDS ORDERED: SOD CHLORIDE 0.9% 1,000 ML IV STA (20:21)
[2017-04-11] MEDS ORDERED: ONDANSETRON 4 MG INJ IV STA (20:21)
[2017-04-11] MEDS ORDERED: KETOROLAC 30 MG INJ IV STA (20:21)
[2017-04-11] MEDS ORDERED: morphine 4 MG/ML VIAL IV STA (20:21)
--- NOTE | 2017-04-11 21:27 | RADRPT ---
PROCEDURE: CT Abdomen and Pelvis without contrast. CLINICAL INDICATION: Abdominal pelvic pain. LLQ pain. Left flank pain. TECHNIQUE: CT scan of the abdomen and pelvis without contrast was performed on a multi-detector hi gh-resolution CT scanner. The patient was scanned without IV contrast. Coronal and sagittal reformat marta images were obtained from the axial source images. CTDI equals 23.78 mGy, and DLP equals 1560.32 mGy-cm. One or more of the following dose reduction techniques were used: - Automated exposure control. - Adjustment of the mA and/or kV according to patient size. - Use of iterative reconstruction technique. COMPARISON: CT 03/04/2017 FINDINGS: Lower thorax: Normal. Liver: Mild fatty infiltration. No focal mass. Biliary: S/P cholecystectomy. No biliary dilatation. Pancreas: Normal. Spleen: Normal. Adrenal Glands: Normal. Genitourinary: Small thin linear 5 mm calculus is seen in the lower pole moiety of the left kidney, nonobstructive in nature and stable over time. No other renal or ureteral calculus or obstructive ur opathy. Gastrointestinal: Sigmoid diverticulosis, without evidence for diverticulitis, stable. Lymph nodes: Small shoddy benign reactive bilateral pelvic and inguinal lymph nodes, not pathologica lly enlarged by size criteria and stable when compared to the prior study. Vascular: Normal. Peritoneum/mesentery: Benign post-surgical scarring with calcification along the anterior pelvic wal l. Small residual/recurrent fat-containing hernia along the anterior pelvic wall is noted. Reproductive organs: Normal. Musculoskeletal: Mild edema of the anterior abdominal wall subcutaneous tissues, stable. Advanced mu ltilevel degenerative enthesopathy of the spine. IMPRESSION: 1. Stable tiny nonobstructing left lower pole renal calculus. 2. No mass, adenopathy, or acute inflammatory process. 3. Mild third spacing and edema of the anterior abdominal wall. 4. Diffuse fatty infiltration of the liver. 5. Sigmoid diverticulosis, without diverticulitis. 6. Stable benign scarring along the anterior pelvic wall. 7. Small residual/recurrent fat-containing anterior pelvic wall hernia. 8. Benign chronic changes seen elsewhere throughout the study, stable. RPTAT: HMJB .Indra Chris MD, Date Time Electronically viewed and signed by .Indra Chris MD, MD on 04/11/2017 21:27 .B/
[2017-04-11] MEDS ORDERED: HYDROmorphONE 1 MG/ML SYG IV STA (21:36)
[2017-04-11] MEDS ORDERED: POTASSIUM CHLORIDE (SR) 20 MEQ TAB PO STA (22:01)
--- NOTE | 2017-04-11 22:59 | RADRPT ---
PROCEDURE: ULTRASOUND PELVIS CLINICAL INDICATION: 37-year-old female with pelvic pain. TECHNIQUE: Multiple sonographic images of the pelvis were obtained utilizing a transabdominal and endovaginal technique. The images were reviewed on a PACS workstation. COMPARISON: CT abdomen/pelvis April 11, 2017. FINDINGS: The uterus is visualized and measures 7.9 x 4.0 x 5.4 cm. The endometrial echo complex is normal and measures 1.9 mm. There is no evidence for free fluid. The right ovary is not visualized consistent with prior oophorectomy. The left ovary has a normal echotexture and measures 2.7 x 2.0 x 2.1 cm. There is flow identified within the left ovary. No adnexal masses are noted. IMPRESSION: Status post right-sided oophorectomy otherwise unremarkable pelvic ultrasound. .Elan Dominguez MD, Date Time Electronically viewed and signed by .Elan Dominguez MD, on 04/11/2017 22:58 .[place]/
[2017-04-11 23:22] VITALS: BP 139/70; PULSE 73; RESP 20
--- NOTE | 2017-04-11 23:26 | ERD ---
ER Documentation Chief Complaint Chief Complaint Left flank pain, Left lower quadrant pain HPI The patient is a 37-year-old female with past medical history of hypertension, diabetes mellitus, dyslipidemia, GERD, arthritis, fibromyalgia, nephrolithiasis status post lithotripsy 2, ovarian cysts status post right oophorectomy, hernias, who presents the Emergency Department with complaint of left-sided flank pain and left lower quadrant abdominal pain for the past 3 days. The patient reports that initially her symptoms were intermittent, but for the past 24 hours, her pain has been constant. She describes the pain as sharp in nature , present in the left flank, radiating towards the left lower quadrant/groin. She denies any uterus, sweats, chills, nausea, vomiting, diarrhea. Denies any black or bloody stools. Denies dysuria, hematuria or flank pain. Denies vaginal bleeding or new vaginal discharge. Denies chest pain, palpitations, cough or shortness of breath. Denies any falls, injury or trauma to the back/ abdomen. Denies any IV drug use. She rates her current pain as 9 out of 10. No other complaints at this time. ROS All systems reviewed and are negative except as per history of present illness. Medications Home Meds Active Scripts Ibuprofen* (Motrin*) 600 Mg Tab, 600 MG PO Q6, #30 TAB Prov:HECTOR BRITO PA-C 04/11/17 Hydrocodone/Acetaminophen ([place] 5-325 Tablet) 1 Each Tablet, 1 EACH PO Q6, #12 TAB Prov:HECTOR BRITO PA-C 04/11/17 Ondansetron (Ondansetron Odt) 4 Mg Tab.rapdis, 4 MG PO Q6H Y for NAUSEA AND/OR VOMITING, #10 TAB Prov:WANDA MONIQUE DO 03/04/17 Ciprofloxacin Hcl* (Ciprofloxacin Hcl*) 500 Mg Tablet, 500 MG PO BID for 7 Days , TAB Prov:WANDA MONIQUE DO 03/04/17 Hydrocodone/Acetaminophen ([place] 10-325 Tablet) 1 Each Tablet, 1 TAB PO Q6H Y for PAIN, #20 TAB Prov:WANDA MONIQUE DO 03/04/17 Cephalexin* (Keflex*) 500 Mg Capsule, 500 MG PO QID for 7 Days, CAP Prov:TRINIDAD HANNAH MD 01/20/17 Hydrocodone/Acetaminophen ([place] 5-325 Tablet) 1 Each Tablet, 1 TAB PO Q6H Y for PAIN, #20 TAB Prov:INGA FERRO NP 08/16/16 Ibuprofen* (Motrin*) 600 Mg Tab, 600 MG PO Q6, #30 TAB Prov:HECTOR BRITO PA-C 06/30/16 Reported Medications Hydrocodone/Acetaminophen ([place] 5-325 Tablet) 1 Each Tablet, 1 EACH PO T 1 TAB PO Q6H PRN, TAB 01/20/17 Trazodone Hcl* (Desyrel*) 100 Mg Tab, 100 MG PO QHS, #30 TAB 01/20/17 Gabapentin* (Gabapentin*) 800 Mg Tablet, 800 MG PO TID, #90 TAB 01/20/17 Omeprazole* (Omeprazole*) 40 Mg Capsule.dr, 40 MG PO DAILY, #30 CAP 01/20/17 Benazepril Hcl* (Benazepril Hcl*) 10 Mg Tablet, 10 MG PO DAILY, #30 TAB 01/20/17 Ranitidine Hcl* (Ranitidine Hcl*) 150 Mg Tablet, 150 MG PO HS, #30 TAB 01/20/17 Furosemide* (Furosemide*) 20 Mg Tablet, 20 MG PO DAILY, #60 TAB 01/20/17 Metoprolol Tartrate* (Lopressor*) 100 Mg Tablet, 100 MG PO BID, #60 TAB 01/20/17 Baclofen* (Baclofen*) 10 Mg Tablet, 10 MG PO TID, TAB 01/20/17 Ergocalciferol (Vitamin D2) (VITAMIN D2) 50,000 Unit Capsule, 34354 UNIT PO, CAP 01/20/17 Insulin Glargine* (Lantus*) 100 Unit/Ml Soln, 65 UNIT SC QHS, #1 VIAL 01/20/17 Insulin Lispro (Humalog) 100 Unit/1 Ml Cartridge, 10 UNIT SQ USE 10u SC TID 01/20/17 Metformin* (Glucophage*) Unknown Strength Tablet, PO BID, #20 TAB 08/16/16 Allergies Allergies: Coded Allergies: Sulfa (Sulfonamide Antibiotics) (Unverified Allergy, Unknown, HIVES,, 01/20) PMhx/Soc History of Surgery: Yes (hernia repair, appendectomy, cholecystectomy, right ovary) Anesthesia Reaction: No Hx Neurological Disorder: No (RHEUMOTOID ARTHRITIS, THYROID) Hx Respiratory Disorders: No Hx Cardiac Disorders: No (HTN, DM) Hx Psychiatric Problems: No Hx Miscellaneous Medical Probl: Yes (diabetes hypertension fibromyalgia kidney stone) Hx Alcohol Use: No Hx Substance Use: No Hx Tobacco Use: No Smoking Status: Never smoker Physical Exam Vitals Vital Signs Date Time Temp Pulse Resp B/P Pulse Ox O2 Delivery O2 Flow Rate FiO2 04/11/17 23:22 73 20 139/70 96 Room Air 04/11/17 18:43 97.3 79 20 176/80 95 Physical Exam GENERAL: Well-developed, well-nourished, female, in no acute distress. HEENT: Head is normocephalic, atraumatic. No scleral pallor or icterus. Pupils equal, round and reactive to light. Extraocular movements intact. Conjunctiva pink. Moist mucous membranes. NECK: Supple. RESPIRATORY: Lungs are clear to auscultation bilaterally. No rales, rhonchi or wheezing. Equal breath sounds. Normal expiratory effort. CARDIOVASCULAR: Regular rate and rhythm. S1 and S2 normal. GASTROINTESTINAL: Abdomen is soft, non-tender, and non-distended. No guarding, no rebound tenderness. Normal bowel sounds. Obese. No gross peritonitis. Negative Rovsing's sign. Negative Pham's sign. No tenderness at McBurney's point. FLANK: No CVA tenderness. BACK: No midline tenderness. EXTREMITIES: No clubbing, cyanosis, or edema. Normal skin perfusion. Moving all extremities. Muscle tone is normal. No focal swelling or erythema. NEUROLOGIC: The patient is alert, awake, and oriented x 3. No focal neurologic deficits. INTEGUMENT: Skin is intact. Warm and dry. No rashes, no petechiae present. PSYCHIATRIC: Cooperative. Result Diagram: 04/11/17204904/11/172049 Results 24 hrs Laboratory Tests Test 04/11/17 20:50 White Blood Count 8.610^3/ul Red Blood Count 4.2710^6/ul Hemoglobin 12.2g/dl Hematocrit 35.0% Mean Corpuscular Volume 82.0fl Mean Corpuscular Hemoglobin 28.6pg Mean Corpuscular Hemoglobin Concent 34.9g/dl Red Cell Distribution Width 13.3% Platelet Count 50906^3/UL Mean Platelet Volume 10.8fl Neutrophils % 57.0% Lymphocytes % 32.4% Monocytes % 4.1% Eosinophils % 5.7% Basophils % 0.5% Nucleated Red Blood Cells % 0.0/100WBC Neutrophils # 4.910^3/ul Lymphocytes # 2.810^3/ul Monocytes # 0.410^3/ul Eosinophils # 0.510^3/ul Basophils # 0.010^3/ul Nucleated Red Blood Cells # 0.010^3/ul Urine Color YELLOW Urine Clarity CLEAR Urine pH 5.0 Urine Specific [place] 1.030 Urine Ketones TRACEmg/dL Urine Nitrite NEGATIVEmg/dL Urine Bilirubin 1+mg/dL Urine Urobilinogen 1+mg/dL Urine Leukocyte Esterase TRACELeu/ul Urine Microscopic RBC 1/HPF Urine Microscopic WBC 9/HPF Urine Squamous Epithelial Cells FEW/HPF Urine Mucus MANY/HPF Urine Hemoglobin NEGATIVEmg/dL Urine Glucose NEGATIVEmg/dL Urine Total Protein 2+mg/dl Sodium Level 143mmol/L Potassium Level 3.1mmol/L Chloride Level 100mmol/L Carbon Dioxide Level 33mmol/L Anion Gap 13 Blood Urea Nitrogen 8mg/dl Creatinine 0.61mg/dl Glucose Level 137mg/dl Calcium Level 9.2mg/dl Total Bilirubin 0.2mg/dl Direct Bilirubin 0.00mg/dl Indirect Bilirubin 0.2mg/dl Aspartate Amino Transf (AST/SGOT) 30IU/L Alanine Aminotransferase (ALT/SGPT) 32IU/L Alkaline Phosphatase 94IU/L Total Protein 7.3g/dl Albumin 4.0g/dl Globulin 3.30g/dl Albumin/Globulin Ratio 1.21 Lipase 34U/L Current Medications Medications (Trade) Dose Ordered Sig/Jovon Route PRN Reason Start Time Stop Time Status Last Admin Dose Admin Sodium Chloride (NS) 1,000 ml @ 1,000 mls/hr Q1H STAT IV 04/11/17 20:21 04/11/17 21:20 DC 04/11/17 20:58 Morphine Sulfate (morphine) 4 mg ONCE STAT IV 04/11/17 20:21 04/11/17 20:22 DC 04/11/17 20:58 Ondansetron HCl (Zofran Inj) 4 mg ONCE STAT IV 04/11/17 20:21 04/11/17 20:22 DC 04/11/17 20:58 Ketorolac Tromethamine (Toradol) 30 mg ONCE STAT IV 04/11/17 20:21 04/11/17 20:22 DC 04/11/17 20:58 Hydromorphone HCl (Dilaudid) 1 mg ONCE STAT IV 04/11/17 21:36 04/11/17 21:37 DC 04/11/17 21:40 Potassium Chloride (Klor-Con 20) 40 meq ONCE STAT PO 04/11/17 22:01 04/11/17 22:02 DC 04/11/17 22:08 Hydromorphone HCl (Dilaudid) 0.5 mg ONCE STAT IV 04/11/17 23:29 04/11/17 23:30 DC 04/11/17 23:32 Procedures/MDM DIAGNOSTIC TESTS AND INTERPRETATION: PROCEDURE: CT Abdomen and Pelvis without contrast. CLINICAL INDICATION: Abdominal pelvic pain. LLQ pain. Left flank pain. TECHNIQUE: CT scan of the abdomen and pelvis without contrast was performed on a multi-detector high-resolution CT scanner. The patient was scanned without IV contrast. Coronal and sagittal reformatted images were obtained from the axial source images. CTDI equals 23.78 mGy, and DLP equals 1560.32 mGy-cm. One or more of the following dose reduction techniques were used: - Automated exposure control. - Adjustment of the mA and/or kV according to patient size. - Use of iterative reconstruction technique. COMPARISON: CT 03/04/2017 FINDINGS: Lower thorax: Normal. Liver: Mild fatty infiltration. No focal mass. Biliary: S/P cholecystectomy. No biliary dilatation. Pancreas: Normal. Spleen: Normal. Adrenal Glands: Normal. Genitourinary: Small thin linear 5 mm calculus is seen in the lower pole moiety of the left kidney, nonobstructive in nature and stable over time. No other renal or ureteral calculus or obstructive uropathy. Gastrointestinal: Sigmoid diverticulosis, without evidence for diverticulitis, stable. Lymph nodes: Small shoddy benign reactive bilateral pelvic and inguinal lymph nodes, not pathologically enlarged by size criteria and stable when compared to the prior study. Vascular: Normal. Peritoneum/mesentery: Benign post-surgical scarring with calcification along the anterior pelvic wall. Small residual/recurrent fat-containing hernia along the anterior pelvic wall is noted. Reproductive organs: Normal. Musculoskeletal: Mild edema of the anterior abdominal wall subcutaneous tissues , stable. Advanced multilevel degenerative enthesopathy of the spine. IMPRESSION: 1. Stable tiny nonobstructing left lower pole renal calculus. 2. No mass, adenopathy, or acute inflammatory process. 3. Mild third spacing and edema of the anterior abdominal wall. 4. Diffuse fatty infiltration of the liver. 5. Sigmoid diverticulosis, without diverticulitis. 6. Stable benign scarring along the anterior pelvic wall. 7. Small residual/recurrent fat-containing anterior pelvic wall hernia. 8. Benign chronic changes seen elsewhere throughout the study, stable. .Indra Chris MD, MD Date Time Electronically viewed and signed by .Indra Chris MD, on 04/11/2017 21:27 PROCEDURE: ULTRASOUND PELVIS CLINICAL INDICATION: 37-year-old female with pelvic pain. TECHNIQUE: Multiple sonographic images of the pelvis were obtained utilizing a transabdominal and endovaginal technique. The images were reviewed on a PACS workstation. COMPARISON: CT abdomen/pelvis April 11, 2017. FINDINGS:The uterus is visualized and measures 7.9 x 4.0 x 5.4 cm. The endometrial echo complex is normal and measures 1.9 mm. There is no evidence for free fluid. The right ovary is not visualized consistent with prior oophorectomy. The left ovary has a normal echotexture and measures 2.7 x 2.0 x 2.1 cm. There is flow identified within the left ovary. No adnexal masses are noted. IMPRESSION:Status post right-sided oophorectomy otherwise unremarkable pelvic ultrasound. .Elan Dominguez MD, Date Time Electronically viewed and signed by .Elan Dominguez MD, on 04/11/2017 22:58 EMERGENCY DEPARTMENT COURSE: The patient was stable throughout the ED course. IV access established by nursing staff. Fluids, morphine, Toradol, Zofran administered. Laboratory testing, CT imaging and ultrasound imaging performed. Patient continued to have some pain during the ED course, and was therefore given 2 doses of Dilaudid, with moderate relief of symptoms. After rest, the patient reports no new complaints. The patient's case was reviewed and discussed with Dr. Crooks, who agrees with the plan of care including labs, treatment and advanced imaging as appropriate. Dr. Crooks recommends that the patient be discharged home to follow up with PMD as an outpatient. MEDICAL DECISION MAKING: This is a 37-year-old female presenting to the Emergency Department with complaint of left flank pain and left lower quadrant abdominal pain. She had no lower abdominal tenderness to suggest appendicitis, and has a history of appendectomy. Abdomen was soft, non-tender, non-distended, no indication of acute/surgical abdomen. No RUQ tenderness to suggest cholecystitis, choledocholithiasis. Differential diagnosis includes, but is not limited to, AAA , nephrolithiasis, cystitis, pyelonephritis, biliary colic, pancreatitis, appendicitis, aortic dissection, mesenteric ischemia, hernia, perforated viscous , diverticulitis, bowel obstruction, cancer, ovarian cyst, torsion, fibroids, shingles, retroperitoneal abscess/ hematoma. CBC reveals no significant anemia. Potassium 3.1, replaced with 40 mEq KCl. Otherwise, no significant electrolyte abnormalities noted to require medication replacement. No transaminitis. Creatinine and BUN within normal limits, no prerenal azotemia or acute kidney injury. Signs and symptoms not consistent with urinary tract infection. Urinalysis with trace urine leukocyte esterase, 9 WBCs. Will send urine culture. I do not suspect pyelonephritis or cystitis at this time. CT abdomen and pelvis reveals a small 5 mm calculus in the lower pole of the left kidney, nonobstructive in nature and stable over time. Otherwise, no significant acute abnormalities noted on CT or US. After rest and administration of fluids and medications, the patient reports no new complaints, and decreased pain. Upon review and interpretation of the patient's presentation and ED course, I believe the patient's symptoms are most consistent with left flank pain and left lower quadrant abdominal pain, uncertain etiology. At this time, the patient is in stable condition and therefore can be discharged home with prescriptions for [place] and ibuprofen, and given strict return precautions for signs of deteriorating or worsening condition. The patient is advised to follow up with their primary care provider within 1-2 days for reevaluation and further management, or return to the ER sooner for any worsening symptoms. I shared my medical decision making and plan with the patient and she verbally understands and agrees with the plan for further observation and care as an outpatient. At the time of discharge, all questions were answered. Departure Diagnosis: Primary Impression: Left flank pain Additional Impression: Abdominal pain, left lower quadrant Condition: Stable Patient Instructions: Abdominal Pain, Flank Pain, Uncertain Cause Additional Instructions: Call your primary care doctor TOMORROW for an appointment during the next 1-2 days.See the doctor sooner or return here if your condition worsens before your appointment time. HECTOR BRITO PA-C Apr 11, 2017 23:26
[2017-04-11] MEDS ORDERED: HYDR-906 PO (23:28)
[2017-04-11] MEDS ORDERED: IBUP-1542 PO (23:28)
[2017-04-11] MEDS ORDERED: HYDROmorphONE 0.5 MG/0.5 ML SYG IV STA (23:29)
== END 2017-04-12 00:13 | disposition home or self-care (01) ==
LOC: FTE 18:31
DX: R10.32 Left lower quadrant pain (principal); E11.9 Type 2 diabetes mellitus without complications; I10 Essential (primary) hypertension; Z79.4 Long term (current) use of insulin; Z79.84 Long term (current) use of oral hypoglycemic drugs
CPT/HCPCS: 36415; 74176; 76830; 76856; 80053; 81001; 83690; 85025; 87086; 96374; 96375; 96376; J1170; J1885; J2270; J2405; J7030; Z7502; Z7610

== ENCOUNTER 2017-04-25 21:00 | Emergency (ER) | payer OTHER ==
[~2017-04-25] VITALS: Ht 170.2 cm; Wt 104.5 kg
[2017-04-25 21:04] VITALS: Ht 170.2 cm; Wt 104.5 kg
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
--- NOTE | 2017-04-25 23:57 | RADRPT ---
PROCEDURE: Chest. CLINICAL INDICATION: Chest pain. TECHNIQUE: Single frontal view of the chest was obtained. COMPARISON: None. FINDINGS: The cardiac silhouette is magnified. The aortic arch is unremarkable. There is no focal consolidat ion, vascular congestion or pleural effusion. There is no pneumothorax. IMPRESSION: No evidence for active cardiopulmonary disease. .Laurent Florian MD, MD Date Time Electronically viewed and signed by .Laurent Florian MD, on 04/25/2017 23:57 .T/
[2017-04-26 00:08] LABS: ADD UMIC NO; UR ASCORBIC ACID NEGATIVE (NEGATIVE); UR BILIRUBIN (Dip) NEGATIVE (NEGATIVE); UR BLOOD (Dip) NEGATIVE (NEGATIVE); UR CLARITY CLEAR (CLEAR); UR COLOR YELLOW (YELLOW); UR GLUCOSE (Dip) NEGATIVE (NEGATIVE); UR KETONES (Dip) NEGATIVE (NEGATIVE); UR LEUKOCYTE ESTERASE (Dip) NEGATIVE Leu/ul (NEGATIVE); UR NITRITE (Dip) NEGATIVE (NEGATIVE); UR SPECIFIC GRAVITY (Dip) 1.017 (1.003-1.030); UR TOTAL PROTEIN (Dip) NEGATIVE (NEGATIVE); UR UROBILINOGEN (Dip) NEGATIVE (NEGATIVE)
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
[2017-04-26] MEDS ORDERED: IBUP-1542 PO (00:40)
[2017-04-26] MEDS ORDERED: CYCL-319 PO (00:40)
[2017-04-26] MEDS ORDERED: HYDR-906 PO (00:40)
[2017-04-26] MEDS ORDERED: HYDROCODONE/APAP (10/325) TAB PO ONE (01:00)
[2017-04-26 01:05] VITALS: BP 188/87; PULSE 96; RESP 16; TEMP 99.1
== END 2017-04-26 01:15 | disposition home or self-care (01) ==
LOC: FTE 21:00
DX: S16.1XXA Strain of muscle, fascia and tendon at neck level, initial encounter (principal); S39.012A Strain of muscle, fascia and tendon of lower back, initial encounter; S20.211A Contusion of right front wall of thorax, initial encounter; I10 Essential (primary) hypertension; E11.9 Type 2 diabetes mellitus without complications; V49.50XA Passenger injured in collision with unspecified motor vehicles in traffic accident, initial encounter; Z79.4 Long term (current) use of insulin; Z79.84 Long term (current) use of oral hypoglycemic drugs
CPT/HCPCS: 71010; 72125; 72131; 81003; Z7502; Z7610

== ENCOUNTER 2018-05-10 20:57 | Emergency (ER) | END 2018-05-11 01:13 | disposition home or self-care (01) ==

== ENCOUNTER 2018-09-03 18:55 | Emergency (ER) | payer OTHER ==
[~2018-09-03] VITALS: Ht 170.2 cm; Wt 161.8 kg
[~2018-09-03 18:55] MED LIST changes: +BENA10TA4 PO; -BENA10TA48 PO; +CYCL10TA7 PO; +ERGO500013 PO; -ERGO500037 PO; +HYDR-3980 PO; +HYDR-4011 PO; -HYDR-902 PO; -HYDR-906 PO; +NAPR-985 PO; +TRAZ-150 PO; -TRAZ100T15 PO
[2018-09-03 19:40] VITALS: Ht 170.2 cm; Wt 161.8 kg
[2018-09-03] MEDS ORDERED: ONDANSETRON (ODT) 4 MG TAB ODT STA (21:57)
[2018-09-03] MEDS ORDERED: KETOROLAC 30 MG INJ IM STA (21:57)
[2018-09-03] MEDS ORDERED: HYDR-4011 PO (23:46)
[2018-09-03] MEDS ORDERED: CEPH-443 PO (23:46)
[2018-09-03 23:55] VITALS: BP 155/90; PULSE 88; RESP 20
--- NOTE | 2018-09-04 00:09 | ERD ---
ER Documentation Chief Complaint Chief Complaint BACK PAIN, AP, NAUSEA, VOMIT X'S 3 DAYS HPI 38-year-old female presents for bilateral lower abdominal pain and low back pain times 3 days. She also has nausea and vomiting. For the past history of diabetes, hypertension, hyperlipidemia, osteoarthritis, fibromyalgia. Motrin at home with mild relief over the pain continues. She states that she has history of kidney stones. Also admits to dysuria. Past surgical history includes cholecystectomy, kidney stones with multiple ureteral stents, hernia repair x3, right oophorectomy, appendectomy. Denies fever. ROS All systems reviewed and are negative except as per history of present illness. Medications Home Meds Active Scripts Cephalexin* (Keflex*) 500 Mg Capsule, 500 MG PO TID for uti for 5 Days, #15 CAP Prov:IMELDA EISENBERG DO 09/03/18 Hydrocodone/Acetaminophen ([place]zier 5-325 Tablet) 1 Each Tablet, 1 EACH PO Q6H PRN for PAIN, #10 TAB Prov:IMELDA EISENBERG DO 09/03/18 Ondansetron (Ondansetron Odt) 4 Mg Tab.rapdis, 4 MG PO Q6H PRN for NAUSEA AND/OR VOMITING, #10 TAB Prov:KAYLEIGH ROY PA-C 05/11/18 Naproxen* (Naprosyn*) 500 Mg Tablet, 500 MG PO BID PRN for PAIN AND/OR INFLAMMATION, #30 TAB Prov:KAYLEIGH ROY PA-C 05/11/18 Hydrocodone/Acetaminophen (Dozier 5-325 Tablet) 1 Each Tablet, 1 TAB PO Q6H PRN for SEVERE PAIN LEVEL 7-10, #20 TAB Prov:INGA FERRO NP 04/26/17 Cyclobenzaprine Hcl* (Cyclobenzaprine Hcl*) 10 Mg Tablet, 10 MG PO TID, #15 TAB Prov:INGA FERRO NP 04/26/17 Ibuprofen* (Motrin*) 600 Mg Tab, 600 MG PO Q6H PRN for PAIN AND OR ELEVATED TEMP, #30 TAB Prov:INGA FERRO NP 04/26/17 Ibuprofen* (Motrin*) 600 Mg Tab, 600 MG PO Q6, #30 TAB Prov:HECTOR BRITO PA-C 04/11/17 Hydrocodone/Acetaminophen (Dozier 5-325 Tablet) 1 Each Tablet, 1 EACH PO Q6, #12 TAB Prov:HECTOR BRITO PA-C 04/11/17 Ondansetron (Ondansetron Odt) 4 Mg Tab.rapdis, 4 MG PO Q6H PRN for NAUSEA AND/OR VOMITING, #10 TAB Prov:CARY MONIQUES Mike. DO 03/04/17 Ciprofloxacin Hcl* (Ciprofloxacin Hcl*) 500 Mg Tablet, 500 MG PO BID for 7 Days, TAB Prov:ANNAMARIE MONIQUESTOLOS A. DO 03/04/17 Hydrocodone/Acetaminophen (Dozier 10-325 Tablet) 1 Each Tablet, 1 TAB PO Q6H PRN for PAIN, #20 TAB Prov:ANNAMARIE MONIQUESTGRACES A. DO 03/04/17 Cephalexin* (Keflex*) 500 Mg Capsule, 500 MG PO QID for 7 Days, CAP Prov:TRINIDAD HANNAH MD 01/20/17 Hydrocodone/Acetaminophen (Dozier 5-325 Tablet) 1 Each Tablet, 1 TAB PO Q6H PRN for PAIN, #20 TAB Prov:INGA FERRO NP 08/16/16 Ibuprofen* (Motrin*) 600 Mg Tab, 600 MG PO Q6, #30 TAB Prov:HECTOR BRITO PA-C 06/30/16 Reported Medications Hydrocodone/Acetaminophen (Dozier 5-325 Tablet) 1 Each Tablet, 1 EACH PO T 1 TAB PO Q6H PRN, TAB 01/20/17 Trazodone Hcl* (Desyrel*) 100 Mg Tab, 100 MG PO QHS, #30 TAB 01/20/17 Gabapentin* (Gabapentin*) 800 Mg Tablet, 800 MG PO TID, #90 TAB 01/20/17 Omeprazole* (Omeprazole*) 40 Mg Capsule.dr, 40 MG PO DAILY, #30 CAP 01/20/17 Benazepril Hcl* (Benazepril Hcl*) 10 Mg Tablet, 10 MG PO DAILY, #30 TAB 01/20/17 Ranitidine Hcl* (Ranitidine Hcl*) 150 Mg Tablet, 150 MG PO HS, #30 TAB 01/20/17 Furosemide* (Furosemide*) 20 Mg Tablet, 20 MG PO DAILY, #60 TAB 01/20/17 Metoprolol Tartrate* (Lopressor*) 100 Mg Tablet, 100 MG PO BID, #60 TAB 01/20/17 Baclofen* (Baclofen*) 10 Mg Tablet, 10 MG PO TID, TAB 01/20/17 Ergocalciferol (Vitamin D2) (VITAMIN D2) 50,000 Unit Capsule, 71799 UNIT PO, CAP 01/20/17 Insulin Glargine* (Lantus*) 100 Unit/Ml Soln, 65 UNIT SC QHS, #1 VIAL 01/20/17 Insulin Lispro (Humalog) 100 Unit/1 Ml Cartridge, 10 UNIT SQ USE 10u SC TID 01/20/17 Metformin* (Glucophage*) Unknown Strength Tablet, PO BID, #20 TAB 08/16/16 Allergies Allergies: Coded Allergies: Sulfa (Sulfonamide Antibiotics) (Unverified Allergy, Unknown, HIVES,, 01/20/17) ciprofloxacin (Verified Allergy, Unknown, 05/10/18) PMhx/Soc History of Surgery: Yes (hernia repair, appendectomy, cholecystectomy, right ovary) Anesthesia Reaction: No Hx Neurological Disorder: No (RHEUMOTOID ARTHRITIS, THYROID) Hx Respiratory Disorders: No Hx Cardiac Disorders: No (HTN) Hx Psychiatric Problems: No Hx Miscellaneous Medical Probl: Yes (DM, fibromyalgia kidney stone, ARTHRITIS, HERNIATED DISCS) Hx Alcohol Use: No Hx Substance Use: No Hx Tobacco Use: No Smoking Status: Never smoker Physical Exam Vitals Vital Signs Date Temp Pulse Resp B/P (MAP) Pulse Ox O2 O2 Flow FiO2 Time Delivery Rate 09/03/18 98.6 87 20 157/91 98 19:40 (113) Physical Exam Const: No acute distress Resp: Clear to auscultation bilaterally Cardio: Regular rate and rhythm, no murmurs Abd: Soft, non distended. Normal bowel sounds, mild tenderness palpation of the bilateral lower abdomen, no McBurney's point tenderness, no Pham sign, no rebound or guarding noted Skin: No petechiae or rashes Back: Mild paravertebral muscle tenderness palpation of the low back Ext: No cyanosis, or edema Neur: Awake and alert Psych: Normal Mood and Affect Result Diagram: 09/03/18224909/03/182249 Results 24 hrs Laboratory Tests Test 09/03/18 22:11 4/2/19 22:50 Urine Color YELLOW Urine Clarity SLIGHTLY CLOUDY Urine pH 6.0 Urine Specific [place] 1.036 Urine Ketones TRACE mg/dL Urine Nitrite POSITIVE mg/dL Urine Bilirubin NEGATIVE mg/dL Urine Urobilinogen NEGATIVE mg/dL Urine Leukocyte Esterase TRACE Katie/ul Urine Microscopic RBC 2 /HPF Urine Microscopic WBC 2 /HPF Urine Squamous Epithelial Cells FEW /HPF Urine Bacteria FEW /HPF Urine Hemoglobin NEGATIVE mg/dL Urine Glucose 3+ mg/dL Urine Total Protein NEGATIVE mg/dl Urine Test NEGATIVE White Blood Count 8.5 10^3/ul Red Blood Count 4.94 10^6/ul Hemoglobin 11.1 g/dl Hematocrit 35.5 % Mean Corpuscular Volume 71.9 fl Mean Corpuscular Hemoglobin 22.5 pg Mean Corpuscular Hemoglobin Concent 31.3 g/dl Red Cell Distribution Width 15.7 % Platelet Count 179 10^3/UL Mean Platelet Volume 11.3 fl Immature Granulocytes % 0.600 % Neutrophils % 69.2 % Lymphocytes % 21.7 % Monocytes % 4.1 % Eosinophils % 3.8 % Basophils % 0.6 % Nucleated Red Blood Cells % 0.0 /100WBC Immature Granulocytes # 0.050 10^3/ul Neutrophils # 5.9 10^3/ul Lymphocytes # 1.8 10^3/ul Monocytes # 0.4 10^3/ul Eosinophils # 0.3 10^3/ul Basophils # 0.1 10^3/ul Nucleated Red Blood Cells # 0.0 10^3/ul Sodium Level 138 mmol/L Potassium Level 3.6 mmol/L Chloride Level 97 mmol/L Carbon Dioxide Level 28 mmol/L Anion Gap 13 Blood Urea Nitrogen 11 mg/dl Creatinine 0.52 mg/dl Est Glomerular Filtrat Rate mL/min > 60 mL/min Glucose Level 306 mg/dl Calcium Level 9.5 mg/dl Total Bilirubin 0.5 mg/dl Direct Bilirubin 0.00 mg/dl Indirect Bilirubin 0.5 mg/dl Aspartate Amino Transf (AST/SGOT) 29 IU/L Alanine Aminotransferase (ALT/SGPT) 32 IU/L Alkaline Phosphatase 106 IU/L Total Protein 7.8 g/dl Albumin 4.5 g/dl Globulin 3.30 g/dl Albumin/Globulin Ratio 1.36 Lipase 76 U/L Current Medications Medications Dose Sig/Jovon Start Time Status Last (Trade) Ordered Route PRN Stop Time Admin Dose Reason Admin Ketorolac 30 mg ONCE STAT 09/03/18 DC 09/03/18 Tromethamine IM 21:57 09/03/18 23:17 (Toradol) 21:59 Ondansetron 4 mg ONCE STAT 09/03/18 DC 09/03/18 HCl (Zofran ODT 21:57 09/03/18 23:17 Odt) 21:59 Procedures/MDM Medical Decision Making: Differential diagnosis includes but not limited to acute gastritis, acute gastroenteritis, pancreatitis, nephrolithiasis. Patient appeared well on physical exam. Nontoxic appearing. ED course: Patient was given Toradol and Zofran. Symptoms improved with treatment. Labs: CBC showed no severe anemia, no elevated WBC to suggest infection CMP showed no electrolyte abnormalities, there was normal kidney and liver function Lipase was normal Urine was negative UA with trace leukocyte esterase Given symptom of dysuria, patient will be treated with antibiotic. Imaging: Renal ultrasound was unremarkable, no renal stones noted. Prescription(s): Patient given prescription for supportive medications and Keflex. Patient advised to follow up with PCP in 1-2 days. Patient advised to return to ED for new or worsening symptoms. Patient stable on discharge from the ED. Disclaimer: Inadvertent spelling and grammatical errors are likely due to E HR/dictation software use and do not reflect on the overall quality of patient care. Also, please note that the electronic time recorded on this note does not necessarily reflect the actual time of the patient encounter. Departure Diagnosis: Primary Impression: Dysuria Additional Impression: Back pain Back pain location: low back pain Chronicity: unspecified Back pain laterality: unspecified Sciatica presence: without sciatica Qualified Codes: M54.5 - Low back pain Condition: Fair Patient Instructions: Dysuria, Back Pain (Acute Or Chronic) Additional Instructions: Call your primary care doctor TOMORROW for an appointment during the next 1-2 days.See the doctor sooner or return here if your condition worsens before your appointment time. IMELDA EISENBERG DO Sep 04, 2018 00:09
== END 2018-09-03 23:55 | disposition home or self-care (01) ==
LOC: FTE 18:55
DX: M54.5 Low back pain (principal); R30.0 Dysuria; I10 Essential (primary) hypertension; E11.9 Type 2 diabetes mellitus without complications; Z79.4 Long term (current) use of insulin
CPT/HCPCS: 76775; 80053; 81001; 83690; 84703; 85025; J1885; Z7610; 96372

== ENCOUNTER 2019-01-09 17:52 | Emergency (ER) | payer OTHER ==
[~2019-01-09] VITALS: Ht 170.2 cm; Wt 165.4 kg
[~2019-01-09 17:52] MED LIST changes: +ADMELOG SQ; +CHOL200073 ORAL; +CLIN300C10 PO; +DOXE25CA2 ORAL; +DULO60CA59 ORAL; +GABA-526 ORAL; +IBUP-1544 ORAL; +INSU100I33 SQ; +LORA10TA3 ORAL; +METF-849 ORAL; +METH750T2 ORAL; +METO100T11 ORAL; +NIFE30TA23 PO; +RANI300T PO; +SIMV10TA2 ORAL
[2019-01-09 17:58] VITALS: Ht 170.2 cm; Wt 165.4 kg
[2019-01-09] MEDS ORDERED: ONDANSETRON (ODT) 4 MG TAB ODT STA (18:25)
[2019-01-09] MEDS ORDERED: CEFTRIAXONE 1 GM INJ IM ONE (18:30)
[2019-01-09] MEDS ORDERED: HYDROCODONE/APAP (5/325) TAB PO ONE (18:30)
[2019-01-09] MEDS ORDERED: LIDOCAINE 1% (MPF) 5 ML VIAL INJ ONE (18:30)
--- NOTE | 2019-01-09 18:34 | ERD ---
ER Documentation Chief Complaint Chief Complaint L protestant/ eye pain; abscess present x1d worse today HPI 38-year-old female presenting with abscess to her left protestant. She states is been there for about a week but the swelling and pain has increased over the last day. She has no pain with ocular movements and has no fevers. She took ibuprofen 3-1/2 hours prior to my evaluation. Denies any headaches or vomiting. Denies visual changes. Medical history hypertension and diabetes. Fibromyalgia arthritis. Allergy to Cipro and sulfa. Social history denies. Surgical history appendectomy cholecystectomy, oophorectomy and stent placement for the kidneys. ROS All systems reviewed and are negative except as per history of present illness. Medications Home Meds Active Scripts Naproxen* (Naprosyn*) 500 Mg Tablet, 500 MG PO BID PRN for PAIN AND/OR INFLAMMATION, #30 TAB Prov:JOSE KING PA-C 01/09/19 Hydrocodone/Acetaminophen ([place] 5-325 Tablet) 1 Each Tablet, 1 TAB PO Q6H PRN for PAIN, #7 TAB Prov:JOSE KING PA-C 01/09/19 Clindamycin Hcl* (Clindamycin Hcl*) 300 Mg Capsule, 300 MG PO TID for 10 Days, CAP Prov:JOSE KING PA-C 01/09/19 Cephalexin* (Keflex*) 500 Mg Capsule, 500 MG PO QID for 7 Days, CAP Prov:JOSE KING PA-C 01/09/19 Cephalexin* (Keflex*) 500 Mg Capsule, 500 MG PO TID for uti for 5 Days, #15 CAP Prov:IMELDA EISENBERG DO 09/03/18 Hydrocodone/Acetaminophen ([place] 5-325 Tablet) 1 Each Tablet, 1 EACH PO Q6H PRN for PAIN, #10 TAB Prov:IMELDA EISENBERG DO 09/03/18 Ondansetron (Ondansetron Odt) 4 Mg Tab.rapdis, 4 MG PO Q6H PRN for NAUSEA AND/OR VOMITING, #10 TAB Prov:KAYLEIGH ROY PA-C 05/11/18 Naproxen* (Naprosyn*) 500 Mg Tablet, 500 MG PO BID PRN for PAIN AND/OR INFLAMMATION, #30 TAB Prov:KAYLEIGH ROY PA-C 05/11/18 Hydrocodone/Acetaminophen ([place] 5-325 Tablet) 1 Each Tablet, 1 TAB PO Q6H PRN for SEVERE PAIN LEVEL 7-10, #20 TAB Prov:INGA FERRO NP 04/26/17 Cyclobenzaprine Hcl* (Cyclobenzaprine Hcl*) 10 Mg Tablet, 10 MG PO TID, #15 TAB Prov:INGA FERRO NP 04/26/17 Ibuprofen* (Motrin*) 600 Mg Tab, 600 MG PO Q6H PRN for PAIN AND OR ELEVATED TEMP, #30 TAB Prov:INGA FERRO NP 04/26/17 Ibuprofen* (Motrin*) 600 Mg Tab, 600 MG PO Q6, #30 TAB Prov:HECTOR BRITO PA-C 04/11/17 Hydrocodone/Acetaminophen ([place] 5-325 Tablet) 1 Each Tablet, 1 EACH PO Q6, #12 TAB Prov:HECTOR BRITO PA-C 04/11/17 Ondansetron (Ondansetron Odt) 4 Mg Tab.rapdis, 4 MG PO Q6H PRN for NAUSEA AND/OR VOMITING, #10 TAB Prov:WANDA MONIQUE DO 03/04/17 Ciprofloxacin Hcl* (Ciprofloxacin Hcl*) 500 Mg Tablet, 500 MG PO BID for 7 Days, TAB Prov:WANDA MONIQUE DO 03/04/17 Hydrocodone/Acetaminophen ([place] 10-325 Tablet) 1 Each Tablet, 1 TAB PO Q6H PRN for PAIN, #20 TAB Prov:WANDA MONIQUE DO 03/04/17 Cephalexin* (Keflex*) 500 Mg Capsule, 500 MG PO QID for 7 Days, CAP Prov:TRINIDAD HANNAH MD 01/20/17 Hydrocodone/Acetaminophen ([place] 5-325 Tablet) 1 Each Tablet, 1 TAB PO Q6H PRN for PAIN, #20 TAB Prov:INGA FERRO NP 08/16/16 Ibuprofen* (Motrin*) 600 Mg Tab, 600 MG PO Q6, #30 TAB Prov:HECTOR BRITO PA-C 06/30/16 Reported Medications Hydrocodone/Acetaminophen ([place] 5-325 Tablet) 1 Each Tablet, 1 EACH PO T 1 TAB PO Q6H PRN, TAB 01/20/17 Trazodone Hcl* (Desyrel*) 100 Mg Tab, 100 MG PO QHS, #30 TAB 01/20/17 Gabapentin* (Gabapentin*) 800 Mg Tablet, 800 MG PO TID, #90 TAB 01/20/17 Omeprazole* (Omeprazole*) 40 Mg Capsule.dr, 40 MG PO DAILY, #30 CAP 01/20/17 Benazepril Hcl* (Benazepril Hcl*) 10 Mg Tablet, 10 MG PO DAILY, #30 TAB 01/20/17 Ranitidine Hcl* (Ranitidine Hcl*) 150 Mg Tablet, 150 MG PO HS, #30 TAB 01/20/17 Furosemide* (Furosemide*) 20 Mg Tablet, 20 MG PO DAILY, #60 TAB 01/20/17 Metoprolol Tartrate* (Lopressor*) 100 Mg Tablet, 100 MG PO BID, #60 TAB 01/20/17 Baclofen* (Baclofen*) 10 Mg Tablet, 10 MG PO TID, TAB 01/20/17 Ergocalciferol (Vitamin D2) (VITAMIN D2) 50,000 Unit Capsule, 44078 UNIT PO, CAP 01/20/17 Insulin Glargine* (Lantus*) 100 Unit/Ml Soln, 65 UNIT SC QHS, #1 VIAL 01/20/17 Insulin Lispro (Humalog) 100 Unit/1 Ml Cartridge, 10 UNIT SQ USE 10u SC TID 01/20/17 Metformin* (Glucophage*) Unknown Strength Tablet, PO BID, #20 TAB 08/16/16 Allergies Allergies: Coded Allergies: Sulfa (Sulfonamide Antibiotics) (Unverified Allergy, Unknown, HIVES,, ) ciprofloxacin (Verified Allergy, Unknown, 05/10/18) PMhx/Soc History of Surgery: Yes (hernia repair, appendectomy, cholecystectomy, right ovary) Anesthesia Reaction: No Hx Neurological Disorder: No (RHEUMOTOID ARTHRITIS, THYROID) Hx Respiratory Disorders: No Hx Cardiac Disorders: No (HTN) Hx Psychiatric Problems: No Hx Miscellaneous Medical Probl: Yes (DM, fibromyalgia kidney stone, ARTHRITIS, HERNIATED DISCS) Hx Alcohol Use: No Hx Substance Use: No Hx Tobacco Use: No Smoking Status: Never smoker FmHx Family History: No diabetes, No coronary disease, No other Physical Exam Vitals Vital Signs Date Temp Pulse Resp B/P (MAP) Pulse Ox O2 O2 Flow FiO2 Time Delivery Rate 01/09/19 99.5 82 18 176/90 98 17:58 (118) Physical Exam GENERAL: The patient is well-appearing, well-nourished, in no acute distress HEENT: Atraumatic. Conjunctivae are pink. Pupils equal, round, and reactive to light. There is no scleral icterus. Tympanic membranes clear bilaterally. Oropharynx clear. No pain with ocular movement NECK: C-spine is soft and supple. There is no meningismus. There is no cervical lymphadenopathy. CHEST: Clear to auscultation bilaterally. There are no rales, wheezes or rhonchi. HEART: Regular rate and rhythm. No murmurs, clicks, rubs or gallops. SKIN: Swelling noted to the upper and lower eyelid in addition to the left protestant with mild induration and erythema. No fluctuance. Results 24 hrs Current Medications Medications Dose Sig/Jovon Start Time Status Last (Trade) Ordered Route PRN Stop Time Admin Dose Reason Admin 1 tab ONCE ONCE 01/09/19 Acetaminophen PO 18:30 01/09/19 / 18:31 Hydrocodone Bitart ([place] (5/325)) Ondansetron 4 mg ONCE STAT 01/09/19 DC HCl (Zofran ODT 18:25 01/09/19 Odt) 18:27 Ceftriaxone 1 gm ONCE ONCE 01/09/19 Sodium IM 18:30 01/09/19 (Rocephin) 18:31 Lidocaine 5 ml ONCE ONCE 01/09/19 (Xylocaine INJ 18:30 01/09/19 1% (Mpf)) 18:31 Procedures/MDM ER course: Rocephin given in ED. MDM: 38-year-old female presenting with abscess to her left protestant. I have low suspicion for orbital cellulitis or intracranial abscess. Patient will be treated with oral antibiotics and recommended to apply warm compresses to the affected site. Patient is told to return in 1 to 2 days for close follow-up as this could develop into worsening abscess. Patient is also told we would p ossibly need to open the abscess to drain it once there is fluctuance. Patient is discharged with strict ER precautions. All questions answered at discharge Departure Diagnosis: Primary Impression: Abscess Condition: Stable Patient Instructions: Abscess, Antiobiotic Treatment Only Referrals: [facility] (PCP) Additional Instructions: FOLLOW UP WITH YOUR PRIMARY CARE PHYSICIAN TOMORROW.Return to this facility if you are not improving as expected. JOSE KING PA-C Jan 09, 2019 18:34
[2019-01-09 18:53] VITALS: BP 176/93; PULSE 95; RESP 18
== END 2019-01-09 18:54 | disposition home or self-care (01) ==
LOC: FTE 17:52
DX: L02.01 Cutaneous abscess of face (principal); I10 Essential (primary) hypertension; E11.9 Type 2 diabetes mellitus without complications; Z79.4 Long term (current) use of insulin
CPT/HCPCS: 96372; J0696; Z7502; Z7610

== ENCOUNTER 2019-01-11 16:22 | Inpatient (IN) | payer OTHER ==
[~2019-01-11] VITALS: Ht 170.2 cm; Wt 165.0 kg
[2019-01-11] MEDS ORDERED: SODIUM CHLORIDE 0.9% 1L BAG IV* STA (17:12)
[2019-01-11] MEDS ORDERED: MEROPENEM 1 GM/50ML(PMX) 50 ML IVPB STA (17:12)
[2019-01-11] MEDS ORDERED: VANCOMYCIN 1 GM (PMX) 250 ML IVPB STA (17:12)
[2019-01-11] MEDS ORDERED: POTASSIUM CHLORIDE 20 MEQ POWDER FOR ORAL SOLN PO ONE (18:30)
--- NOTE | 2019-01-11 18:46 | ERD ---
ER Documentation Chief Complaint Chief Complaint pt reports abscess to L face is getting bigger HPI 38-year-old female history of diabetes, hypertension, hyperlipidemia, rheumatoid arthritis and fibromyalgia presents the ED complaining of worsening facial swelling and redness. Patient presented to the ED 3 days ago complaining of a 1 day history of left-sided facial redness and swelling. Diagnosed with cellulitis and possible abscess treated with Rocephin and discharged on clindamycin but symptoms are worsening. There is increasing swelling and redness extending down to her cheek and around her left eye. Denies eye pain or visual changes. Localized pain but no diffuse headache or neck pain. No dysphasia or dysphonia. Denies chest pain, palpitations, shortness of breath, abdominal pain, nausea vomiting. Subjective fevers and chills. ROS All systems reviewed and are negative except as per history of present illness. Medications Home Meds Reported Medications Methocarbamol* (Methocarbamol*) 750 Mg Tablet, 1 TAB ORAL TID 01/11/19 Ranitidine Hcl* (Ranitidine Hcl*) 300 Mg Tablet, 300 MG PO HS PRN for GASTROINTESTINAL UPSET, #30 TAB 01/11/19 Loratadine* (Loratadine*) 10 Mg Tablet, 1 TAB ORAL DAILY NEEDED FOR ALLERGIES 01/11/19 Nifedipine* (Nifedipine ER*) 30 Mg Tablet.sa, 30 MG PO DAILY, TAB.SA 01/11/19 Metformin* (Glucophage*) 500 Mg Tab, 1 TAB ORAL BID 01/11/19 Metoprolol Tartrate (Metoprolol Tartrate) 100 Mg Tablet, 1 TAB ORAL BID 01/11/19 Cholecalciferol (Vitamin D3) (VITAMIN D-3) 2,000 Unit Capsule, 1 CAP ORAL DAILY 01/11/19 Insulin Glargine,Hum.rec.anlog (Basaglar Kwikpen U-100) 100 Unit/1 Ml Insuln.pen, 45 UNITS SQ BID 01/11/19 Duloxetine Hcl* (Duloxetine Hcl*) 60 Mg Capsule.dr, 1 CAP ORAL DAILY 01/11/19 Doxepin Hcl* (Doxepin Hcl*) 25 Mg Capsule, 1 TAB ORAL DAILY 01/11/19 Gabapentin* (Gabapentin*) 600 Mg Tablet, 1 CAP ORAL TID 01/11/19 Simvastatin (Simvastatin) 10 Mg Tablet, 1 TAB ORAL DAILY 01/11/19 Ibuprofen* (Ibuprofen*) 800 Mg Tablet, 1 TAB ORAL TID 01/11/19 [Admelog] No Conflict Check, 15 UNITS SQ TIDM A 01/11/19 Discontinued Reported Medications Hydrocodone/Acetaminophen ([place] 5-325 Tablet) 1 Each Tablet, 1 EACH PO T 1 TAB PO Q6H PRN, TAB 01/20/17 Trazodone Hcl* (Desyrel*) 100 Mg Tab, 100 MG PO QHS, #30 TAB 01/20/17 Gabapentin* (Gabapentin*) 800 Mg Tablet, 800 MG PO TID, #90 TAB 01/20/17 Omeprazole* (Omeprazole*) 40 Mg Capsule.dr, 40 MG PO DAILY, #30 CAP 01/20/17 Benazepril Hcl* (Benazepril Hcl*) 10 Mg Tablet, 10 MG PO DAILY, #30 TAB 01/20/17 Ranitidine Hcl* (Ranitidine Hcl*) 150 Mg Tablet, 150 MG PO HS, #30 TAB 01/20/17 Furosemide* (Furosemide*) 20 Mg Tablet, 20 MG PO DAILY, #60 TAB 01/20/17 Metoprolol Tartrate* (Lopressor*) 100 Mg Tablet, 100 MG PO BID, #60 TAB 01/20/17 Baclofen* (Baclofen*) 10 Mg Tablet, 10 MG PO TID, TAB 01/20/17 Ergocalciferol (Vitamin D2) (VITAMIN D2) 50,000 Unit Capsule, 88230 UNIT PO, CAP 01/20/17 Insulin Glargine* (Lantus*) 100 Unit/Ml Soln, 65 UNIT SC QHS, #1 VIAL 01/20/17 Insulin Lispro (Humalog) 100 Unit/1 Ml Cartridge, 10 UNIT SQ USE 10u SC TID 01/20/17 Metformin* (Glucophage*) Unknown Strength Tablet, PO BID, #20 TAB 08/16/16 Discontinued Scripts Naproxen* (Naprosyn*) 500 Mg Tablet, 500 MG PO BID PRN for PAIN AND/OR INFLAMMATION, #30 TAB Prov:JOSE KING PA-C 01/09/19 Hydrocodone/Acetaminophen ([place] 5-325 Tablet) 1 Each Tablet, 1 TAB PO Q6H PRN for PAIN, #7 TAB Prov:JOSE KING PA-C 01/09/19 Clindamycin Hcl* (Clindamycin Hcl*) 300 Mg Capsule, 300 MG PO TID for 10 Days, CAP Prov:JOSE KING PA-C 01/09/19 Cephalexin* (Keflex*) 500 Mg Capsule, 500 MG PO QID for 7 Days, CAP Prov:JOSE KING PA-C 01/09/19 Cephalexin* (Keflex*) 500 Mg Capsule, 500 MG PO TID for uti for 5 Days, #15 CAP Prov:DALE EISENBERG DO 09/03/18 Hydrocodone/Acetaminophen ([place] 5-325 Tablet) 1 Each Tablet, 1 EACH PO Q6H PRN for PAIN, #10 TAB Prov:DALE EISENBERG DO 09/03/18 Ondansetron (Ondansetron Odt) 4 Mg Tab.rapdis, 4 MG PO Q6H PRN for NAUSEA AND/OR VOMITING, #10 TAB Prov:KAYLEIGH ROY PA-C 05/11/18 Naproxen* (Naprosyn*) 500 Mg Tablet, 500 MG PO BID PRN for PAIN AND/OR INFLAMMATION, #30 TAB Prov:KAYLEIGH ROY PA-C 05/11/18 Hydrocodone/Acetaminophen ([place] 5-325 Tablet) 1 Each Tablet, 1 TAB PO Q6H PRN for SEVERE PAIN LEVEL 7-10, #20 TAB Prov:INGA FERRO NP 04/26/17 Cyclobenzaprine Hcl* (Cyclobenzaprine Hcl*) 10 Mg Tablet, 10 MG PO TID, #15 TAB Prov:INGA FERRO NP 04/26/17 Ibuprofen* (Motrin*) 600 Mg Tab, 600 MG PO Q6H PRN for PAIN AND OR ELEVATED TEMP, #30 TAB Prov:INGA FERRO NP 04/26/17 Ibuprofen* (Motrin*) 600 Mg Tab, 600 MG PO Q6, #30 TAB Prov:HECTOR BRITO PA-C 04/11/17 Hydrocodone/Acetaminophen ([place] 5-325 Tablet) 1 Each Tablet, 1 EACH PO Q6, #12 TAB Prov:HECTOR BRITO PA-C 04/11/17 Ondansetron (Ondansetron Odt) 4 Mg Tab.rapdis, 4 MG PO Q6H PRN for NAUSEA AND/OR VOMITING, #10 TAB Prov:WANDA MONIQUE. DO 03/04/17 Ciprofloxacin Hcl* (Ciprofloxacin Hcl*) 500 Mg Tablet, 500 MG PO BID for 7 Days, TAB Prov:WANDA MONIQUE. DO 03/04/17 Hydrocodone/Acetaminophen ([place] 10-325 Tablet) 1 Each Tablet, 1 TAB PO Q6H PRN for PAIN, #20 TAB Prov:SAFIAJHONNYJUDIEANNAMARIEFERNYS A. DO 03/04/17 Cephalexin* (Keflex*) 500 Mg Capsule, 500 MG PO QID for 7 Days, CAP Prov:TRINIDAD HANNAH MD 01/20/17 Hydrocodone/Acetaminophen ([place] 5-325 Tablet) 1 Each Tablet, 1 TAB PO Q6H PRN for PAIN, #20 TAB Prov:INGA FERRO NP 08/16/16 Ibuprofen* (Motrin*) 600 Mg Tab, 600 MG PO Q6, #30 TAB Prov:HECTOR BRITO PA-C 06/30/16 Allergies Allergies: Coded Allergies: Sulfa (Sulfonamide Antibiotics) (Unverified Allergy, Unknown, HIVES,, 01/11/19) ciprofloxacin (Verified Allergy, Unknown, 01/11/19) PMhx/Soc History of Surgery: Yes (hernia repair, appendectomy, cholecystectomy, right ovary) Anesthesia Reaction: No Hx Neurological Disorder: No Hx Respiratory Disorders: No Hx Cardiac Disorders: Yes Hx Psychiatric Problems: No Hx Miscellaneous Medical Probl: Yes (DM, fibromyalgia kidney stone, rheumatoid arthritis, thyroid) Hx Alcohol Use: No Hx Substance Use: No Hx Tobacco Use: No FmHx Family history relevant to presenting complaint Physical Exam Vitals Temp: 98.6. Pulse: 71. Respirations: 24. O2 saturation. Blood pressure 123/60. 100% on room air Physical Exam Const: Moderate distress Head: Atraumatic Eyes: Pupils equal react light, extraocular movements are intact. Normal Conjunctiva. Left periorbital swelling and erythema. ENT: Left temporal tenderness, erythema, induration and swelling with mild fl uctuance. Neck: Full range of motion. No meningismus. No cervical lymphadenopathy Resp: Breath sounds are equal and clear to auscultation bilaterally Cardio: Regular rate and rhythm, no murmurs Abd: Soft, non tender, obese, non distended. Normal bowel sounds Skin: No petechiae or rashes Back: No midline or flank tenderness Ext: No cyanosis, or edema Neur: Awake and alert. No focal deficit Psych: Anxious but not depressed. Results 24 hrs Laboratory Tests Test 01/11/19 17:18 01/11/19 17:23 White Blood Count 9.4 10^3/ul Red Blood Count 4.58 10^6/ul Hemoglobin 10.5 g/dl Hematocrit 34.5 % Mean Corpuscular Volume 75.3 fl Mean Corpuscular Hemoglobin 22.9 pg Mean Corpuscular Hemoglobin Concent 30.4 g/dl Red Cell Distribution Width 15.9 % Platelet Count 225 10^3/UL Mean Platelet Volume 11.0 fl Immature Granulocytes % 0.500 % Neutrophils % 69.5 % Lymphocytes % 22.4 % Monocytes % 3.7 % Eosinophils % 3.4 % Basophils % 0.5 % Nucleated Red Blood Cells % 0.0 /100WBC Immature Granulocytes # 0.050 10^3/ul Neutrophils # 6.5 10^3/ul Lymphocytes # 2.1 10^3/ul Monocytes # 0.4 10^3/ul Eosinophils # 0.3 10^3/ul Basophils # 0.1 10^3/ul Nucleated Red Blood Cells # 0.0 10^3/ul Prothrombin Time 14.4 Sec Prothrombin Time Ratio 1.1 INR International Normalized Ratio 1.11 Activated Partial Thromboplast Time 33.3 Sec Urine Color YELLOW Urine Clarity CLEAR Urine pH 6.0 Urine Specific [place] 1.037 Urine Ketones NEGATIVE mg/dL Urine Nitrite NEGATIVE mg/dL Urine Bilirubin NEGATIVE mg/dL Urine Urobilinogen NEGATIVE mg/dL Urine Leukocyte Esterase 2+ Katie/ul Urine Microscopic RBC 1 /HPF Urine Microscopic WBC 17 /HPF Urine Squamous Epithelial Cells FEW /HPF Urine Hemoglobin 1+ mg/dL Urine Glucose 3+ mg/dL Urine Total Protein NEGATIVE mg/dl Sodium Level 137 mmol/L Potassium Level 3.3 mmol/L Chloride Level 96 mmol/L Carbon Dioxide Level 32 mmol/L Anion Gap 9 Blood Urea Nitrogen 11 mg/dl Creatinine 0.62 mg/dl Est Glomerular Filtrat Rate mL/min > 60 mL/min Glucose Level 320 mg/dl Calcium Level 8.9 mg/dl Total Bilirubin 0.4 mg/dl Direct Bilirubin 0.00 mg/dl Indirect Bilirubin 0.4 mg/dl Aspartate Amino Transf (AST/SGOT) 45 IU/L Alanine Aminotransferase (ALT/SGPT) 41 IU/L Alkaline Phosphatase 103 IU/L Troponin I < 0.012 ng/ml Total Protein 7.0 g/dl Albumin 3.8 g/dl Globulin 3.20 g/dl Albumin/Globulin Ratio 1.18 POC Venous Lactate 3.4 mmol/L Current Medications Medications Dose Sig/Jovon Start Time Status Last (Trade) Ordered Route PRN Stop Time Admin Dose Reason Admin Sodium 1,850 ml BOLUS OVER 2 01/11/19 DC 01/11/19 Chloride HOURS STAT 17:12 17:32 (NS) IV* 01/11/19 17:14 Vancomycin 250 ml @ ONCE STAT 01/11/19 DC 01/11/19 HCl 125 mls/hr IVPB 17:12 19:05 01/11/19 19:11 50 ml @ ONCE STAT 01/11/19 DC 01/11/19 Meropenem/Sod 100 mls/hr IVPB 17:12 17:42 ium Chloride 01/11/19 17:41 Potassium 40 meq ONCE ONCE 01/11/19 DC 01/11/19 Chloride PO 18:30 19:06 (Potassium 01/11/19 18:31 Chloride Pwd/Soln) Procedures/MDM DOCUMENTS REVIEWED: ED nurse, prior ED, prior records IMAGING: PROCEDURE: CT Maxillofacial with contrast. CLINICAL INDICATION: Periorbital cellulitis TECHNIQUE: CT scan of the facial region was performed on a multidetector scanner. Contiguous axial images were obtained following the uncomplicated intravenous administration of 90 cc of there is 320. No complications occurred. The exam CTDlvol = 54 mGy and DLP = 1663 mGy-cm. One of the following 3 dose reduction techniques were used: Automated exposure control; adjustment of the mA and/or kV according to patient size; or use of iterative reconstruction technique. DICOM images are available. COMPARISON: None available. FINDINGS: There is left facial and periorbital subcutaneous soft tissue swelling extending laterally inferior to the lateral left orbital rim and zygomatic arch. There is no intraorbital extension. Extraocular muscles and optic nerve sheath complex are unremarkable. Superior ophthalmic veins are normal in caliber. The [place]orn[place] of the orbits are intact. The left globe and orbital contents are intact. There is focal cutaneous thickening with subcutaneous soft tissue density measuring 2.2 x 2.1 x 3.5 cm consistent with a focal inflammatory mass/phlegmon. There is a wider region of ill-defined infiltration. There is no ring enhancing collection to indicate a formed abscess. There is no radiopaque foreign body. Underlying osseous structures are intact without fracture or erosion. There are multiple bilateral submental and parotid space subcentimeter lymph nodes. There is no significant appear adenopathy. There are no fractures. The right orbit is unremarkable. Paranasal sinuses are clear. There are no air-fluid level. The parotid and submandibular glands unremarkable. The nasopharynx and oropharynx are unremarkable. Bones unremarkable. IMPRESSION: Left facial and periorbital cutaneous thickening and subcutaneous infiltration compatible with a cellulitis with a ill-defined inflammatory mass/phlegmon. No discrete abscess. No radiopaque foreign body. No intraorbital extension. RPTAT: HMVK .Dale Marin MD, MD Date Time Electronically viewed and signed by .Dale Marin MD, MD on 01/11/2019 19:12 .K/ MEDICAL DECISION MAKIN-year-old female history of diabetes, hypertension, hyperlipidemia, rheumatoid arthritis and fibromyalgia presents the ED complain ing of worsening facial swelling and redness despite 3 days of oral antibiotics. CT scan reveals left facial and periorbital swelling consistent with cellulitis with an ill-defined mass/phlegmon but no discrete abscess. ENT, Dr. Uriarte consulted and will see the patient tomorrow. Diabetes mellitus out of control without evidence of DKA or HHS. Patient's infectious symptoms have not stabilized and the patient is at risk of rapid decompensation. The patient will be admitted for careful hydration, antibiotic therapy, and infectious source control. Severe Sepsis criteria: Infectious source: Left facial cellulitis End organ damage indicated by: Lactate > 2.0 mmol/L Sepsis Management: Time of recognition of severe sepsis: 17:13 Within 1 hours of recognition: Blood cultures x 2 before broad-spectrum antibiotics: Yes 30 ml/kg NS bolus completed Initial lactate 3.4 mmol/L Repeat lactate 1.4 mmol/L Septic Shock Assessment: Any lactic acid > 4.0 no Persistent hypotension (SBP < 90 or 40 mmHg drop, MAP < 65) despite 30 mL/kg IV fluid bolus: no A focused sepsis perfusion/reperfusion reassessment examination was performed post 30ml/kg bolus @20:30 Temp 98.7, BP 122/65, HR 73, RR 17, Pox 98% on room air No Persistent Hypotension Central line not indicated Accepting Care Team Current data and ongoing care discussed. Time: 18:42 Admitting Physician: Dr Alejandra Garner Instrument Maker Apprentice(s): Dr Pauline Uriarte Outstanding Data: None Critical Care Time: 35 minutes Treatments/Evaluations: Close monitoring and treatment of unstable vital signs, cardiorespiratory, and neurologic status, while maintaining tight balance of fluid, respiratory, and cardiac interventions. This includes the administration of emergency fluid management while maintaining close respiratory support as well as the provision of immediate and broad-spectrum antibiotic therapy, while performing a simultaneous assessment for possible sources in order to direct targeted therapy. This time includes discussing the case with the patient and the patient's family. This time also includes the consideration for invasive and chemical support to prevent cardiopulmonary collapse. This time does not i nclude all procedures stated elsewhere in this record. This time also includes reviewing old records, labs and radiological studies. This time includes examining and re-examining the patient. Additionally, this time also includes arranging care with admitting and consulting physicians. Admit to med/surg for further evaluation and management. Counseled patient regarding diagnosis, diagnostic results and plan for admission. Departure Diagnosis: Primary Impression: Facial cellulitis Additional Impressions: Severe sepsis Diabetes mellitus out of control Diabetes mellitus type: type 2 Glycemic state: with hyperglycemia Qualified Codes: E11.65 - Type 2 diabetes mellitus with hyperglycemia Condition: Serious SALONI VILLARREAL MD Jan 11, 2019 18:46
[2019-01-11] MEDS ORDERED: ACETAMINOPHEN 325 MG TAB PO PRN (19:30)
[2019-01-11] MEDS ORDERED: ONDANSETRON 4 MG INJ IV PRN (19:30)
[2019-01-11] MEDS ORDERED: SOD CHLORIDE 0.9% 100 ML ONE (19:35)
[2019-01-11] MEDS ORDERED: IODIXANOL LOCM 50 ML BTL ONE (19:35)
[2019-01-11] MEDS ORDERED: ADMELOG SQ SCH (20:00)
[2019-01-11] MEDS ORDERED: RANITIDINE 150 MG TAB PO PRN (20:00)
[2019-01-11] MEDS ORDERED: DEXTROSE 50% 50 ML SYRINGE IV PRN ×2 (21:00)
[2019-01-11] MEDS: metFORMIN 500 MG TAB PO SCH (21:00)
[2019-01-11] MEDS ORDERED: GLUCOSE GEL 15 GRAM TUBE BUCCAL PRN (21:00)
[2019-01-11] MEDS ORDERED: GLUCAGON 1 MG INJ IM PRN (21:00)
[2019-01-11] MEDS ORDERED: GLUCOSE GEL 15 GRAM TUBE PO PRN ×2 (21:00)
[2019-01-11] MEDS ORDERED: INSULIN GLARGINE [LANTus] (100 UNITS/ML) SYG SC SCH (21:00)
[2019-01-11 21:31] VITALS: BP 139/68; PULSE 77; RESP 18
[2019-01-11 21:57] VITALS: Ht 170.2 cm; Wt 165.0 kg
[2019-01-11] MEDS ORDERED: ZOLPIDEM 5 MG TAB PO PRN (23:00)
[2019-01-11] MEDS ORDERED: INSULIN GLARGINE [LANTus] (100 UNITS/ML) SYG SC ONE (23:00)
[2019-01-11] MEDS: METHOCARBAMOL 750 MG TAB PO SCH (23:28)
[2019-01-11] MEDS: GABAPENTIN 300 MG CAP PO SCH (23:29)
[2019-01-11] MEDS: HYDROCODONE/APAP (5/325) TAB PO PRN (23:29)
[2019-01-11] MEDS: METOPROLOL 100 MG TAB PO SCH (23:32)
[2019-01-12 01:51] VITALS: BP 135/66; PULSE 78; RESP 16
[2019-01-12] MEDS ORDERED: ACCU-CHEK XX SCH (02:00)
[2019-01-12] MEDS: INSULIN ASPART [NOVOLOG] 3 ML PEN SC SCH ×8 (02:18→17:08)
[2019-01-12] MEDS: HYDROCODONE/APAP (5/325) TAB PO PRN ×3 (04:40→13:55)
[2019-01-12] MEDS: GABAPENTIN 300 MG CAP PO SCH ×2 (08:25→12:37)
[2019-01-12] MEDS: metFORMIN 500 MG TAB PO SCH (08:25)
[2019-01-12] MEDS: METHOCARBAMOL 750 MG TAB PO SCH ×2 (08:25→12:37)
[2019-01-12] MEDS: METOPROLOL 100 MG TAB PO SCH (08:26)
[2019-01-12 08:29] VITALS: BP 139/71; PULSE 76; RESP 18
[2019-01-12] MEDS ORDERED: DOXEPIN 25 MG CAP PO SCH (09:00)
[2019-01-12] MEDS ORDERED: CEFTRIAXONE 1 GM/50 ML (PMX) 50 ML IVPB SCH (09:00)
[2019-01-12] MEDS ORDERED: DULOXETINE 30 MG CAP DR PO SCH (09:00)
[2019-01-12] MEDS ORDERED: NIFEdipine (XL) 30 MG TAB PO SCH (09:00)
[2019-01-12] MEDS ORDERED: LORATADINE 10 MG TAB PO SCH (09:00)
[2019-01-12] MEDS ORDERED: LIDOCAINE 1%/EPI 30 ML INJ INJ STA (13:43)
[2019-01-12 14:00] VITALS: BP 124/65; PULSE 74; RESP 18
--- NOTE | 2019-01-12 15:03 | PDOCDIS ---
Discharge Instructions CONDITION Azydt8Ig Patient Condition: [id number] Good HOME CARE INSTRUCTIONS: Urxyy8Qc Diet Instructions: [id number] Low Fat /Cholesterol Jgens8Fg Special Diet: Roibj6a diabetic ACTIVITY: [id number] Activity Restrictions: [id number] No Restrictions FOLLOW UP/APPOINTMENTS Follow-up Plan pcp [address] Uriarte 1 week BHAVANA SIDDIQI MD Jan 12, 2019 15:03
--- NOTE | 2019-01-12 16:57 | CONS ---
DATE OF ADMISSION: 01/11/2019 DATE OF CONSULTATION: TYPE OF CONSULTATION: ENT. HISTORY OF PRESENT ILLNESS: Moriah Vasquez is a 38-year-old female who presented to the emergenc y room last night with left temporal cellulitis. ENT was consulted to evaluate. CT is consistent wi th phlegmon, but no discrete abscess is seen. There is concern that she has abscess forming and ENT is consulted to evaluate. PAST MEDICAL HISTORY: Diabetes, hypertension. MEDICATION LIST: Reviewed. 1. Metformin. 2. Insulin Lantus. 3. Lopressor. 4. Rocephin. 5. Neurontin. 6. Robaxin. 7. Loratadine. 8. Doxepin. 9. Procardia. 10. Cymbalta. DRUG ALLERGIES: SULFA. PAST SURGICAL HISTORY: Noncontributory. SOCIAL HISTORY: Negative for tobacco, alcohol, drug abuse. FAMILY HISTORY: Negative for any heart, lung, kidney, thyroid, liver disease. REVIEW OF SYSTEMS: A 12-point review of systems is otherwise noncontributory. On examination today, the patient has fluctuant left temporal collection. After informed consent was obtained, the area was anesthetized with approximately 2 mL of 1% lidocaine with 1:100,000 epinephri ne. The patient was prepped and draped in sterile fashion. A small incision was made. The patient had some purulent fluid that was drained. Cultures were obtained and all the fluid was significantly drained. A dressing was applied. IMPRESSION: Facial abscess. PLAN: At this point, it is okay to discharge her home on oral antibiotics. If there are any questio ns or concerns, please free to call at any time. Dictated By: ZABRINA SEWELL MD DM/NTS Conf#: [id number] DID#: [id number] CC: BHAVANA SIDDIQI MD;*EndCC*
--- NOTE | 2019-01-12 17:20 | HP ---
DATE OF ADMISSION: 01/11/2019 CHIEF COMPLAINT: Swelling to left side of face. HISTORY OF PRESENT ILLNESS: A 38-year-old morbidly obese female with type 2 diabetes mellitus, hyper tension, rheumatoid arthritis and fibromyalgia, presented to emergency room with complaint of worseni ng left temporal lesion. The patient was seen in the emergency room 3 days prior to admission. At t hat time, she received IV Rocephin and was discharged home on clindamycin. The patient, however, not ed persistent swelling in the area that extended to the periorbital region. The patient complains of pain to the left side of the face due to the pressure. She denies any visual changes. No fevers or chills. Initial evaluation showed a normal white blood cell count. Lactate level was initially chriss vated but repeat lactate was 1.4. PAST MEDICAL HISTORY: 1. Type 2 diabetes mellitus. 2. Hypertension. 3. Hyperlipidemia. 4. Fibromyalgia. MEDICATIONS PRIOR TO ADMISSION: 1. Loratadine 10 mg daily. 2. Methocarbamol 750 mg t.i.d. 3. Metoprolol 100 mg b.i.d. 4. Nifedipine 30 mg daily. 5. Simvastatin 10 mg daily. 6. Doxepin 25 mg daily. 7. Cymbalta 60 mg daily. 8. Gabapentin 600 mg t.i.d. 9. Ibuprofen as needed. 10. Ranitidine 300 mg nightly as needed. 11. Basaglar insulin 45 units b.i.d. 12. Metformin 500 mg b.i.d. 13. Vitamin D supplement. PHYSICAL EXAMINATION: GENERAL: Well-developed, well-nourished, morbidly obese female who is in no apparent distress. VITAL SIGNS: Stable. She is afebrile. HEENT: Shows inflamed lesion on the left temporal area with periorbital edema. The lesion is fluctu ant. Oropharynx is clear. NECK: Supple. LUNGS: Clear to auscultation bilaterally. CARDIAC: Regular rate and rhythm. No murmurs, rubs or gallops. ABDOMEN: Soft, obese, nontender, nondistended, normoactive bowel sounds. EXTREMITIES: No clubbing, cyanosis, or edema. NEUROLOGICAL: Grossly nonfocal. ASSESSMENT: 1. A 38-year-old female with left temporal cellulitis with associated periorbital edema. 2. Poorly controlled diabetes mellitus. 3. Rheumatoid arthritis. 4. Fibromyalgia. 5. Morbid obesity. 6. Hyperlipidemia. PLAN: 1. Admit to med/surg. 2. IV Rocephin. 3. ENT consultation was requested. 4. The patient requires incision and drainage of the mass. A facial CT did not show any evidence of aspen abscess. Dictated By: BHAVANA SOLIS/YVETTE Conf#: [id number] DID#: [id number]
[2019-01-12 19:57] VITALS: BP 140/64; PULSE 69; RESP 18
--- NOTE | 2019-01-20 19:40 | DS ---
DATE OF ADMISSION: 01/11/2019 DATE OF DISCHARGE: 01/12/2019 DISCHARGE DIAGNOSES: 1. A 38-year-old female with the left temporal cellulitis and abscess. 2. Status post incision and drainage of the left temporal abscess. 3. Poorly controlled diabetes mellitus. 4. Rheumatoid arthritis. 5. Fibromyalgia. 6. Morbid obesity. 7. Hyperlipidemia. HOSPITAL COURSE: A 38-year-old morbidly obese female with type 2 diabetes mellitus, presented to [facility] room with complaint of worsening left temporal lesion. The patient has been seen in the [facility] ency room 3 days prior to admission. She received IV Rocephin and discharged home on clindamycin; ho wever, cellulitis persisted and there was associated periorbital edema. The patient was seen in cons ultation by Dr. Uriarte, the ear, nose, throat specialist. She underwent incision and drainage of the lesion, and a significant amount of fluid was drained. The patient was asked to continue clindamyci n at home and follow up with her primary care provider. MEDICATIONS ON DISCHARGE: Include the followin. Doxepin 25 mg daily. 2. Duloxetine 60 mg daily. 3. Gabapentin 600 mg t.i.d. 4. Ibuprofen 1 tablet as needed. 5. Glargine insulin 45 units b.i.d. 6. Loratadine 10 mg p.o. daily. 7. Metformin 500 mg b.i.d. 8. Methocarbamol 750 mg t.i.d. 9. Metoprolol 100 mg b.i.d. 10. Nifedipine 30 mg daily. 11. Ranitidine 300 mg at bedtime as needed. 12. Lovastatin 10 mg daily. 13. Resume clindamycin that was previously prescribed. Dictated By: BHAVANA SOLIS/YVETTE Conf#: [id number] DID#: [id number]
== END 2019-01-12 20:01 | disposition home or self-care (01) | DRG 603 ==
LOC: FTE 16:22 → MS3 19:24
PROVIDERS: ADMIT Internal Medicine; ATTEND Internal Medicine
PROC: 0H91XZZ Drainage of Face Skin, External Approach (ICD-10-PCS; principal; 2019-01-12)
DX: L03.211 Cellulitis of face (principal); L02.01 Cutaneous abscess of face; Z68.43 Body mass index [BMI] 50.0-59.9, adult; E78.5 Hyperlipidemia, unspecified; E11.65 Type 2 diabetes mellitus with hyperglycemia; E66.01 Morbid (severe) obesity due to excess calories; I10 Essential (primary) hypertension; M06.9 Rheumatoid arthritis, unspecified; M79.7 Fibromyalgia; Z79.4 Long term (current) use of insulin; Z79.1 Long term (current) use of non-steroidal anti-inflammatories (NSAID)
CPT/HCPCS: 36415; 70486; 71045; 80053; 81001; 82962; 83605; 84484; 85025; 85610; 85730; 87045; 87086; 93005; 96365; 96375; J0696; J1815; J2185; J3370; J7030; Q9967

== ENCOUNTER 2019-04-01 16:46 | Emergency (ER) | payer OTHER ==
[~2019-04-01] VITALS: Wt 89.0 kg
[~2019-04-01 16:46] MED LIST changes: -BACL10TA PO; -BENA10TA4 PO; -CIPR500T4 PO; -CLIN300C10 PO; -CYCL10TA7 PO; -DULO60CA59 ORAL; +DULO60CA60 ORAL; -ERGO500013 PO; -FURO20TA3 PO; -GABA-528 PO; -HYDR-3980 PO; -HYDR-4011 PO; -IBUP-1542 PO; -INSU100C SQ; -LANT3I SC; -METO-407 PO; -MTF1000T PO; -NAPR-985 PO; -OMEP40CA6 PO; -ONDA4TAB14 PO; -RANI150T5 PO; -TRAZ-150 PO
[2019-04-01 16:50] VITALS: BP 148/72; PULSE 82; RESP 18
[2019-04-01] MEDS ORDERED: KETOROLAC 30 MG INJ IM STA (17:14)
== END 2019-04-01 18:51 | disposition home or self-care (01) ==
LOC: FTE 16:46
DX: N30.90 Cystitis, unspecified without hematuria (principal); I10 Essential (primary) hypertension; E11.9 Type 2 diabetes mellitus without complications; Z79.84 Long term (current) use of oral hypoglycemic drugs
CPT/HCPCS: 76775; 81001; 81025; 96372; J1885; Z7502